=== PATIENT | female | born 1965 | race Caucasian/White ===

== ENCOUNTER 2020-08-15 11:45 | Emergency (ER) | payer OTHER, SELFPAY ==
[2020-08-15 13:00] VITALS: BP 150/73; PULSE 78; RESP 20; TEMP 36; O2SAT 96
[2020-08-15 13:22] LABS: Add Urine Microscopic? YES; Appearance Urine Clear (Clear); Bacteria Urine Trace /hpf; Bilirubin Urine Negative (Negative); Blood Urine 1+ (Negative); Color Urine Amber (Yellow); Glucose Urine UA 2+ mg/dL (Negative); Ketones Urine Negative (Negative); Leukocyte Esterase Ur 2+ LEU/UL (Negative); Mucus Urine Rare /lpf; Nitrate Urine Positive (Negative); Protein Urine 1+ mg/dL (Negative); Specific Grav Ur 1.027 (1.001-1.035); Squamous Epithelial Cell Urine Rare /hpf (Few); WBC Urine 51-75 /hpf
--- NOTE | 2020-08-15 14:16 | ED.FEMALEGU ---
HPI - Female Genitourinary General Chief complaint: Urogenital-Female Stated complaint: urinary symptoms Time Seen by Provider: 08/15/20 13:14 History of Present Illness HPI Narrative: Patient is a 55-year-old female who presents to the ER with concerns for UTI. Began having pelvic pressure and urinary frequency and dysuria. She even had some incontinence. This all started yesterday. Also developed fever yesterday evening and persisted today. Pain is now radiating up into her upper abdomen. No pain in her back. Denies nausea/vomiting/shortness of breath. She has taken some leftover Bactrim without improvement, same with Azo that she purchased [id number]. Related Data Allergies Allergy/AdvReac Type Severity Reaction Status Date / Time No Known Drug Allergies Allergy Unknown Verified 12/21/18 17:10 Review of Systems Constitutional: Constitutional: Reports chills Comments: Fevers Gastrointestinal: Gastrointestinal: Reports abdominal pain, Denies diarrhea, Denies nausea and Denies vomiting Genitourinary: Genitourinary: Reports nocturia, Reports dysuria, Denies flank pain and Reports urinary incontinence [facility] Past Medical History Medical History (Updated 08/15/20 @ 14:19 by Michael Perla MD) COPD (chronic obstructive pulmonary disease) Diabetes Hypertension Surgical History Surgical History (Updated 08/15/20 @ 14:18 by Michael Perla MD) History of cholecystectomy History of hysterectomy History of tonsillectomy Social History Social History (Updated 08/15/20 @ 14:18 by Michael Perla MD) Smoking status: Current every day smoker Gender identity (if verbalized by the patient): Female Exam Narrative: Exam Narrative: GENERAL: Well-appearing, obese, and in no acute distress. HEAD: Normocephalic, atraumatic. CHEST: Clear to auscultation. No respiratory distress. HEART: Regular rate and rhythm. Normal peripheral pulses. ABDOMEN: Soft, nontender, nondistended, no CVA tenderness. NEURO: Alert and oriented x3. PSYCH: Normal mood and affect. Course Course Emergency Course: Discharge home with ciprofloxacin. Vital Signs Vital signs: Vital Signs Temperature 96.8 F L 08/15/20 13:00 Pulse Rate 78 08/15/20 13:00 Respiratory Rate 20 08/15/20 13:00 Blood Pressure 150/73 H 08/15/20 13:00 Pulse Oximetry 96 08/15/20 13:00 Temperature 96.8 F L 08/15/20 13:00 Pulse Rate 78 08/15/20 13:00 Respiratory Rate 20 08/15/20 13:00 Blood Pressure 150/73 H 08/15/20 13:00 Pulse Oximetry 96 08/15/20 13:00 MDM - Female Genitourinary Lab Data Labs: Lab Results 08/15/20 Range/Units 13:04 Urine Color [place] (Yellow) Urine Appearance Clear (Clear) Urine pH 5.0 (5.0-9.0) Ur Specific [place] 1.027 (1.001-1.035) Urine Protein 1+ H (Negative) mg/dL Urine Glucose (UA) 2+ H (Negative) mg/dL Urine Ketones Negative (Negative) mg/dL Ur Blood (Man) 1+ H (Negative) Urine Nitrate Positive H (Negative) Urine Bilirubin Negative (Negative) Urine Urobilinogen 4.0 H (<2.0) mg/dL Leukocyte Esterase Rfl 2+ H (Negative) LOVE/UL Urine RBC 6-10 H (0-2) /hpf Urine WBC 51-75 H /hpf Ur Squamous Epith Cells Rare (Few) /hpf Urine Bacteria Trace /hpf Hyaline Casts 1-2 (None) /lpf Urine Mucus Rare /lpf Discharge Plan Discharge Clinical Impression: Urinary tract infection Patient Disposition: Home, Self-Care Condition: Stable Instructions: Antibiotic Form, Urinary Tract Infection in Women (ED) Additional Instructions: Return to the ER if you cannot keep down food or water, you have worsening pain in your abdomen or back, you lose consciousness, you have additional concerns. Prescriptions: New ciprofloxacin HCl [Cipro] 500 mg tablet 500 mg PO Q12H Qty: 20 RF: 0 Follow-up/Referrals: Roxie,BETH Bowen [Primary Care Provider] - 1 Week
[2020-08-15 14:34] VITALS: BP 148/79; PULSE 82; RESP 16; O2SAT 100
== END 2020-08-15 14:34 | disposition home or self-care (01) ==
PROVIDERS: Emergency Provider Emergency Medicine; PCP Physician Assistant
DX: N39.0 Urinary tract infection, site not specified (principal); J44.9 Chronic obstructive pulmonary disease, unspecified; E11.9 Type 2 diabetes mellitus without complications; I10 Essential (primary) hypertension
CPT/HCPCS: 81001; 87086; 99283

== ENCOUNTER 2020-09-21 10:32 | Emergency (ER) | payer OTHER, SELFPAY ==
--- NOTE | ~2020-09-21 | XR_ITS ---
XR hip RT min 2V 09/21/2020 10:59 INDICATION: Right hip pain after fall downstairs PROCEDURE: 2 views right hip COMPARISON: No prior studies for comparison. FINDINGS: Fracture, dislocation or subluxation is not identified. There is osteoarthritis of the righ t hip. The soft tissues appear within normal limits. No foreign bodies are identified. IMPRESSION: 1: NO ACUTE BONE OR JOINT ABNORMALITY IDENTIFIED. Reviewed, dictated and finalized at location A.
[2020-09-21 10:42] VITALS: BP 157/82; PULSE 85; RESP 20; TEMP 36.9; O2SAT 99
--- NOTE | 2020-09-21 10:53 | ED.LOWEXIN ---
HPI - Extremity Injury (Lower) General Chief Complaint: Extremity Injury, Lower Stated Complaint: Fall,Rt hip pain Time Seen by Provider: 09/21/20 10:48 Source: patient and RN notes reviewed History of Present Illness HPI Narrative: Patient is a 55-year-old female who presents the urgent care with complaints of right hip and right knee pain. Patient states that she fell at 6 AM while at home down a short step. Patient denies of a loss of consciousness or hitting her head. States that she has been using Tylenol and tramadol since the injury. States that she has been having issues with the right leg and does have a follow-up with her PCP on Friday. No other acute complaints. No acute distress noted. Patient aware of the plan of care. Some parts of this dictation were generated by voice recognition software and may contain typographical and/or grammatical inaccuracies. Related Data Home Medications Medication Instructions Recorded Confirmed gabapentin 300 mg PO TID 09/21/20 09/21/20 lisinopril 20 mg PO DAILY 09/21/20 09/21/20 meloxicam 15 mg PO DAILY 09/21/20 09/21/20 metformin 500 mg PO BID 09/21/20 09/21/20 montelukast 10 mg PO DAILY 09/21/20 09/21/20 sitagliptin [Januvia] 100 mg PO DAILY 09/21/20 09/21/20 tizanidine 6 mg PO TID 09/21/20 09/21/20 tramadol 50 mg PO TID 09/21/20 09/21/20 Allergies Allergy/AdvReac Type Severity Reaction Status Date / Time No Known Drug Allergies Allergy Unknown Unknown Verified 09/21/20 10:51 Review of Systems Review of Systems: Narrative: CONSTITUTIONAL: Denies fever, chills, or sweats. EYES: Denies visual changes, redness, or discharge. ENT: Denies rhinorrhea, congestion, sore throat, or otalgia. CARDIOVASCULAR: Denies chest pain, palpitations, or edema. RESPIRATORY: Denies cough or dyspnea. GASTROINTESTINAL: Denies abdominal pain, nausea, vomiting, or diarrhea. GENITOURINARY: Denies dysuria or hematuria. SKIN: Denies rash or itching. MUSCULOSKELETAL: Reports of right hip and right knee pain NEUROLOGIC: Denies headache, numbness, or weakness. All other systems reviewed are negative, except as documented in HPI. [facility] Past Medical History Medical History (Updated 09/21/20 @ 11:11 by CHAI Oates) COPD (chronic obstructive pulmonary disease) Diabetes Hypertension Surgical History Surgical History (Updated 08/15/20 @ 14:18 by Michael Perla MD) History of cholecystectomy History of hysterectomy History of tonsillectomy Social History Social History (Updated 08/15/20 @ 14:18 by Michael Perla MD) Smoking status: Current every day smoker Gender identity (if verbalized by the patient): Female Comments At the time of my signature, I reviewed and agree with the nursing past medical, surgical, social, and family history. There is no relevant family history pertinent to the patient complaint. Exam Narrative: Exam Narrative: GENERAL: This is a well-nourished, well-developed patient, in no apparent distress. HEAD: normocephalic, atraumatic. EYES: PERRL. Sclera clear/white. Vision is grossly intact. EARS: External ears normal NOSE: External nose normal with no obvious nasal discharge, nares without redness, no rhinorrhea. THROAT: Mucous membranes moist NECK: Neck supple CARDIOVASCULAR: Regular rate and rhythm without murmurs, gallops, or rubs. RESPIRATORY: Mild expiratory wheeze to right upper lung field, otherwise clear SKIN: warm, intact with no suspicious lesions or rash, good texture and turgor. NEURO: awake, alert, and oriented to person, place and time. There were no obvious focal neurologic abnormalities. EXTREMITIES: No clubbing, cyanosis, or edema. No joint tenderness, effusion, or edema noted. No calf tenderness. Negative Homans sign bilaterally. Course Vital Signs Vital signs: Vital Signs Temperature 98.4 F 09/21/20 10:42 Pulse Rate 85 09/21/20 10:42 Respiratory Rate 20 09/21/20 10:42 Blood Pressure 157/82 H 09/21/20 10:42
== END 2020-09-21 11:12 | disposition home or self-care (01) ==
PROVIDERS: Emergency Provider Nurse Practitioner Family; PCP Physician Assistant
DX: M25.551 Pain in right hip (principal); J44.9 Chronic obstructive pulmonary disease, unspecified; E11.9 Type 2 diabetes mellitus without complications; I10 Essential (primary) hypertension; F17.200 Nicotine dependence, unspecified, uncomplicated
CPT/HCPCS: 73502; 99213; G0463

== ENCOUNTER 2022-10-17 10:52 | Emergency (ER) | payer BC, SELFPAY ==
--- NOTE | ~2022-10-17 | XR_ITS ---
EXAMINATION: [id number] INDICATION: Left-sided chest pain TECHNIQUE: A frontal view of the chest and 4 views of the left ribs were obtained. COMPARISON: None. FINDINGS: There is mild atelectasis of the lung bases. No pleural effusion or pneumothorax. The cardi omediastinal silhouette is normal. No displaced rib fracture is identified. IMPRESSION: 1. No acute cardiopulmonary abnormality or evidence of displaced rib fracture. Reviewed, dictated and finalized at location L.
[2022-10-17 11:01] VITALS: BP 126/65; PULSE 71; RESP 18; TEMP 37.4; O2SAT 98
--- NOTE | 2022-10-17 11:04 | ED.CHESTPAIN ---
HPI - Chest Pain General Chief Complaint: Fall Stated Complaint: Fall Injury/ Left Side Rib Pain Time Seen by Provider: 10/17/22 11:05 Source: patient Mode of arrival: ambulatory Limitations: no limitations History of Present Illness HPI narrative: Bethany is a 57-year-old female patient presenting to the clinic today with complaints of left-sided rib pain after falling last night. States she was bringing in the trash can in twisted and fell. Denies any neck pain, head injury, or loss of consciousness. She denies any shortness of breath or difficulty breathing at this time. Does have history of COPD. States it hurts to take a deep breath, cough, or sneeze over the left lateral anterior rib just below her left breast. Related Data Home Medications Medication Instructions Recorded Confirmed meloxicam 15 mg tablet 15 mg PO DAILY 09/21/20 10/17/22 metformin 500 mg tablet 500 mg PO BID 09/21/20 10/17/22 montelukast 10 mg tablet 10 mg PO DAILY 09/21/20 10/17/22 sitagliptin phosphate 100 mg 100 mg PO DAILY 09/21/20 10/17/22 tablet (Januvia) tizanidine 4 mg tablet 6 mg PO TID 09/21/20 10/17/22 tramadol 50 mg tablet 100 mg PO QID 09/21/20 10/17/22 alprazolam 0.5 mg tablet See Rx Instructions .Route .COMPLEX 10/17/22 10/17/22 lisinopril 40 mg tablet 40 mg PO DAILY 10/17/22 10/17/22 pregabalin 150 mg capsule See Rx Instructions .Route .COMPLEX 10/17/22 10/17/22 Allergies Allergy/AdvReac Type Severity Reaction Status Date / Time levothyroxine Allergy Severe Joint Pain Verified 10/17/22 10:57 Review of Systems Review of Systems: Pertinent positives per HPI. Patient denies any fever, chills, rash, headache, visual changes, dizziness, cough, runny nose, sore throat, shortness of breath, chest pain, palpitations, nausea, vomiting, diarrhea, constipation, abdominal pain, or any urinary issues. [facility] Past Medical History Medical History Anxiety Arthritis COPD (chronic obstructive pulmonary disease) Diabetes Hypertension Surgical History Surgical History History of cholecystectomy History of hysterectomy History of tonsillectomy Family History Family History Sibling Cancer Heart problem Mother Diabetes mellitus Hypertension Depression Anxiety Father Hypertension Diabetes mellitus Depression Anxiety Heart problem Sibling Hypertension Depression Anxiety Daughter Anxiety Depression Grandparent Cerebrovascular accident Social History Social History Social History: Bethany is very confident in filling out medical forms and has not received assistance in the last 12 months from an organization/program. She has had 3 pregnancies, 1 ended in miscarriage. Date of last menses was 09/15/2013. Performs self breast exams weekly. Had a colonoscopy on 06/16/2019. She drinks 6 cups of coffee/day. Smoking status: Current every day smoker Tobacco type: cigarettes Alcohol intake: current Alcohol use details: Caroline (1 drink: 4-6 times a year). Substance use: never Lack of Transportation: No Lack of Food: Never True Current Housing: I Have Housing Concerned About Future Housing: No Difficulty Paying Gas/Electric Bills: No Difficulty Paying for Meds: No Currently Unemployed: No Education: High School Diploma/GED Difficulty w/ Childcare or Family Care: No Living arrangements: alone Occupation/Education: occupation Additional occupation/education comments: [employer] Gender identity (if verbalized by the patient): Female Sexual Orientation (if Verbalized by the Patient): Straight or Heterosexual Agree to blood products: Yes Comments At the time of my signature, I reviewed and agree with the nursing past me
== END 2022-10-17 11:55 | disposition home or self-care (01) ==
PROVIDERS: Emergency Provider Nurse Practitioner Family; PCP Physician Assistant
DX: S20.212A Contusion of left front wall of thorax, initial encounter (principal); W19.XXXA Unspecified fall, initial encounter; F17.210 Nicotine dependence, cigarettes, uncomplicated; M19.90 Unspecified osteoarthritis, unspecified site; J44.9 Chronic obstructive pulmonary disease, unspecified; E11.9 Type 2 diabetes mellitus without complications; I10 Essential (primary) hypertension; F41.9 Anxiety disorder, unspecified
CPT/HCPCS: 71101; 99213; G0463

== ENCOUNTER 2022-11-29 09:14 | Outpatient (CLI) | payer BC, SELFPAY ==
--- NOTE | 2022-11-29 09:00 | ECG_ITS ---
Measurements Intervals [place] Rate: 64 P: 26 MN: 135 QRS: 65 QRSD: 80 T: 50 QT: 405 QTc: 419 Interpretive Statements DIFFICULT INTERPRETATION BECAUSE OF BASELINE ARTIFACT SINUS RHYTHM LOW QRS VOLTAGE IN PRECORDIAL LEADS [QRS DEFLECTION < 1.0 mV IN CHEST LEADS] NONSPECIFIC T-WAVE ABNORMALITY ABNORMAL ECG NO PREVIOUS ECG AVAILABLE FOR COMPARISON Electronically Signed On 11-29-2022 14:46:54 CDT by Leonard Carreno M.D.
[2022-11-29 10:41] LABS: Anion Gap 6 mmol/L (8-16); Blood Urea Nitrogen 13 mg/dL (7-17); Calcium 9.2 mg/dL (8.4-10.2); Carbon Dioxide 28 mmol/L (22-30); Chloride 105 mmol/L (98-107); Estimated Glomerular Filt Rate > 60; Glucose 99 mg/dL (65-110); Hemoglobin A1C 5.8 % (<5.7); Partial Thromboplastin Time 29.1 SECONDS (22.3-36.8); Potassium 4.2 mmol/L (3.4-5.0); Prothrombin Time 13.6 Seconds (11.1-14.7); Sodium 139 mmol/L (137-145)
[2022-11-29 11:46] LABS: Hematocrit 45.3 % (37.0-47.0); Hemoglobin 14.9 g/dL (12.0-15.0); Mean Corpuscular HGB Conc 32.9 g/dl (32-36); Mean Corpuscular Hemoglobin 30.2 pg (26-34); Mean Corpuscular Volume 91.9 fl (80-100); Mean Platelet Volume 10.3 fl (7.4-10.4); Platelet Count Result 224 k/mm3 (150-375); Red Blood Count 4.93 M/mm3 (4.2-5.4); Red Cell Distribution Width 13.8 % (11.5-14.5); White Blood Count 7.2 K/mm3 (4.5-10.0)
[2022-11-29 11:52] LABS: Appearance Urine Clear (Clear); Bilirubin Urine Negative (Negative); Blood Urine Negative (Negative); Color Urine Yellow (Yellow); Glucose Urine UA Negative (Negative); Ketones Urine Negative (Negative); Leukocyte Esterase Ur Negative LEU/UL (Negative); Nitrate Urine Negative (Negative); Protein Urine Negative (Negative); Specific Grav Ur 1.012 (1.001-1.035); Urobilinogen Urine 0.2 mg/dL (<2.0)
[2022-11-29 11:53] LABS: Add Urine Microscopic? NO
== END 2022-11-29 09:15 | disposition home or self-care (01) ==
LOC: ANHSURGERY 09:20
PROVIDERS: PCP Physician Assistant; Visit Provider Neurological Surgery
DX: M48.062 Spinal stenosis, lumbar region with neurogenic claudication (principal); E11.9 Type 2 diabetes mellitus without complications; I10 Essential (primary) hypertension; Z01.818 Encounter for other preprocedural examination
CPT/HCPCS: 36415; 80048; 81003; 83036; 85027; 85610; 85730; 93005

== ENCOUNTER 2022-12-03 02:00 | Day surgery (SDC) | payer BC, SELFPAY ==
[2022-11-28 15:41] VITALS: BMI 30.7
--- NOTE | 2022-11-28 15:51 | PC.NURSE ---
Report to the Outpatient Waiting Room, entrance under the green pavilion located off [facility], at time 11:30 on date 12/03/22. Planned Procedure Time: 1:30. Time changes happen often and if your time is changed the preop area will call you the afternoon before. - You and your visitor will be asked to self-screen and do not enter if you have any COVID symptoms. - A mask is optional within the hospital at this time. Patients may have clear liquids (water, carbonated beverages, clear teas, apple juice) until 3 hours prior to surgery with a maximum of 20 ounces. - No food from midnight until time of surgery Take the following medications with a SIP of water the morning of surgery: INHALER IF NEEDED, ALPRAZOLAM, PREGABALIN, TRAMADOL DO NOT STOP ANY OF YOUR OTHER PRESCRIPTION MEDICATIONS PRIOR TO SURGERY ?EXCEPT THE FOLLOWING Medications to discontinue per physician: MELOXICAM Date to take last dose: ALREADY STOPPED Please no make-up, nail swedish, hairspray, perfume, deodorant, or body powder the day of surgery. No jewelry (including any body piercings) or valuables the day of surgery, leave them at home. Please take a shower or bath the night before, or the morning of, surgery with an antibacterial soap. Wear comfortable, loose fitting clothing. - Jewelry must be removed prior to entering the operating room. Rings and piercings that are not removed may be cut off. - The hospital will not accept responsibility for valuables. - Please leave all valuables, including medications, at home the day of surgery. If you are going home after surgery, a licensed delivery driver/customer service must drive you home. - NO public transportation without another adult if you receive anesthesia. - We recommend that an adult stay with you for 24 hours following discharge. - We also recommend that you do not drive, make important decision, drink alcoholic beverages, or take any drugs that were not prescribed by your health care provider for at least 24 hours after your discharge time. Follow any additional instructions given to you from your surgeon. If you or anyone in your household have experienced Covid symptoms in the past week, please notify your surgeon or the nurse liaison at the phone number below for possible testing. Telephone instructions given to PT - MANUEL PIEDRA and asked if any additional questions and then verbalized understanding. Patient advised to call surgeon office or pre surgery nurse liaison [phone] if any additional questions.
[2022-12-03] VITALS (9 sets, daily range): BP systolic 89–176; BP diastolic 45–80; PULSE 58–87; RESP 13–20; TEMP 36.3; O2SAT 97–100
--- NOTE | ~2022-12-03 | XR_ITS ---
EXAMINATION: XR fluoroscopy no charge DATE: 12/03/2022 15:30 CDT INDICATION: FORAMINOTOMY AND HEMILAMINECTOMY . TECHNIQUE: 1 fluoroscopic image of the lateral lumbar spine were obtained during foraminotomy and hem ilaminectomy performed by the surgeon. I was not present in the operating room. Fluoroscopy exposure time was 4 seconds. Air Kerma 3.6642 mGy. DAP 0.0726 mGym2. COMPARISON: None FINDINGS: A probe or other surgical instrument projects over the posterior lumbar spine, directed towards the L 3 vertebral body. IMPRESSION: Fluoroscopic documentation of foraminotomy and hemilaminectomy. Please refer to the operative note fo r complete procedural details . Reviewed, dictated and finalized at location K. IMPRESSION: Fluoroscopic documentation of foraminotomy and hemilaminectomy. Please refer to the operative note for complete procedural details .
[2022-12-03] MEDS: LACTATED RINGERS 1,000 ML 30 ML IV CONT (12:30)
[2022-12-03 12:43] LABS: Glucose Point of Care 111 mg/dl (65-105)
--- NOTE | 2022-12-03 13:02 | SUR.PREOP ---
1250-PT AWARE PRIOR SURGEON IN ROOM DELAYS PT SURGEON UNTIL ~1400.
--- NOTE | 2022-12-03 13:17 | WPDANESEPPF ---
Anes - Initial Pre Proc Eval Procedure: Operation Date: 12/03/22 13:30 Proposed Procedures p Right L3-4 Far Lateral Foraminotomy and Hemilaminectomy - Feng Phillip MD Date/Time: 12/03/22 13:17 Surgeon: Feng Phillip MD Pre Op Diagnosis: stenosis Patient Data Age: 57 Gender: F Height: 1.59 m Weight: 76.9 kg Last Vital Signs Temp 36.3 C L 12/03/22 11:57 Pulse 73 12/03/22 11:57 Resp 20 12/03/22 11:57 BP 141/68 H 12/03/22 11:57 Pulse Ox 97 12/03/22 11:57 O2 Del Method Room Air 12/03/22 11:57 Allergies Allergy/AdvReac Type Severity Reaction Status Date / Time levofloxacin [From Levaquin] Allergy leg pain Verified 12/03/22 12:21 Home Medications Medication Instructions Recorded Confirmed Type meloxicam 15 mg tablet 15 mg PO DAILY 09/21/20 12/03/22 History sitagliptin phosphate 100 mg 100 mg PO DAILY 09/21/20 12/03/22 History tablet (Januvia) tizanidine 4 mg tablet 6 mg PO TID 09/21/20 12/03/22 History tramadol 50 mg tablet 100 mg PO QID 09/21/20 12/03/22 History alprazolam 0.5 mg tablet See Rx Instructions .Route .COMPLEX 10/17/22 12/03/22 History lisinopril 40 mg tablet 40 mg PO DAILY 10/17/22 12/03/22 History pregabalin 150 mg capsule See Rx Instructions .Route .COMPLEX 10/17/22 12/03/22 History albuterol sulfate 90 mcg/actuation 1 inh inhalation PRN 11/28/22 12/03/22 History aerosol inhaler loratadine 10 mg tablet (Claritin) 10 mg PO DAILY 11/28/22 12/03/22 History Laboratory Tests 12/03/22 12:38 POC Capillary Glucose 111 H mg/dl (65-105) Patient hx anesthesia problems: none Family hx anesthesia problems: none Results Review: All pre-operative results and documents have been reviewed as part of the pre-operative evaluation. [facility] Past Medical History Medical History Anxiety Arthritis COPD (chronic obstructive pulmonary disease) Diabetes Hypertension Surgical History Surgical History History of cholecystectomy History of hysterectomy History of tonsillectomy Family History Family History Sibling Cancer Heart problem Mother Diabetes mellitus Hypertension Depression Anxiety Father Hypertension Diabetes mellitus Depression Anxiety Heart problem Sibling Hypertension Depression Anxiety Daughter Anxiety Depression Grandparent Cerebrovascular accident Social History Social History Social History: Bethany is very confident in filling out medical forms and has not received assistance in the last 12 months from an organization/program. She has had 3 pregnancies, 1 ended in miscarriage. Date of last menses was 09/15/2013. Performs self breast exams weekly. Had a colonoscopy on 06/16/2019. She drinks 6 cups of coffee/day. Smoking packs per day: 1 Smoking cigarettes per day: 20.0 Years smoked: 40 Smoking pack-years: 40.00 Smoking status: Current every day smoker Tobacco type: cigarettes Additional smoking assessment comments: HAS BEEN CUTTING BACK SINCE MAY 2022 - NOW DOWN TO 7/DAY Alcohol intake: current Alcohol use details: 1/MONTH Substance use: current Substance use type: marijuana Lack of Transportation: No Lack of Food: Never True Current Housing: I Have Housing Concerned About Future Housing: No Difficulty Paying Gas/Electric Bills: No Difficulty Paying for Meds: No Currently Unemployed: No Education: High School Diploma/GED Difficulty w/ Childcare or Family Care: No Living arrangements: alone Occupation/Education: occupation Additional occupation/education comments: [employer] Gender identity (if verbalized by the patient): Female Sexual Orientation (if Verbalized by the Patient): Straight or Heteros
--- NOTE | 2022-12-03 15:05 | SUR.PREOP ---
1355-pt sleeping-family updated, aware OR room being prepared and Dr. Phillip to arrive ~1500 for ~1530 case.
--- NOTE | 2022-12-03 15:15 | PM.IMHP ---
H&P: HPI History of Present Illness Date/Time: 12/03/22 15:15 Chief Complaint: Bethany is a 57-year-old female with a right L3 radiculopathy related to foraminal stenosis at L3-4 on the right presents for far lateral foraminotomy and potential microdiskectomy if necessary. She has not changed appreciably since we last saw her. She does not have specific muscle group weakness or dermatomal numbness. She is not having any bowel or bladder difficulty. Review of Systems Review of Systems: Patient denies shortness of breath, cough, fever, chills, nausea, vomiting, weight loss, weight gain, chest pain, dysuria. She has back and leg pain as above. Review of systems otherwise negative on 12 systems except as noted elsewhere. [facility] Past Medical History Medical History Anxiety Arthritis COPD (chronic obstructive pulmonary disease) Diabetes Hypertension Surgical History Surgical History History of cholecystectomy History of hysterectomy History of tonsillectomy Family History Family History Sibling Cancer Heart problem Mother Diabetes mellitus Hypertension Depression Anxiety Father Hypertension Diabetes mellitus Depression Anxiety Heart problem Sibling Hypertension Depression Anxiety Daughter Anxiety Depression Grandparent Cerebrovascular accident Social History Social History Social History: Bethany is very confident in filling out medical forms and has not received assistance in the last 12 months from an organization/program. She has had 3 pregnancies, 1 ended in miscarriage. Date of last menses was 09/15/2013. Performs self breast exams weekly. Had a colonoscopy on 06/16/2019. She drinks 6 cups of coffee/day. Smoking packs per day: 1 Smoking cigarettes per day: 20.0 Years smoked: 40 Smoking pack-years: 40.00 Smoking status: Current every day smoker Tobacco type: cigarettes Additional smoking assessment comments: HAS BEEN CUTTING BACK SINCE MAY 2022 - NOW DOWN TO 7/DAY Alcohol intake: current Alcohol use details: 1/MONTH Substance use: current Substance use type: marijuana Lack of Transportation: No Lack of Food: Never True Current Housing: I Have Housing Concerned About Future Housing: No Difficulty Paying Gas/Electric Bills: No Difficulty Paying for Meds: No Currently Unemployed: No Education: High School Diploma/GED Difficulty w/ Childcare or Family Care: No Living arrangements: alone Occupation/Education: occupation Additional occupation/education comments: [employer] Gender identity (if verbalized by the patient): Female Sexual Orientation (if Verbalized by the Patient): Straight or Heterosexual Spiritual care concerns: No Agree to blood products: Yes Meds Home Medications and Allergies Home Medications Medication Instructions Recorded Confirmed Type meloxicam 15 mg tablet 15 mg PO DAILY 09/21/20 12/03/22 History sitagliptin phosphate 100 mg 100 mg PO DAILY 09/21/20 12/03/22 History tablet (Januvia) tizanidine 4 mg tablet 6 mg PO TID 09/21/20 12/03/22 History tramadol 50 mg tablet 100 mg PO QID 09/21/20 12/03/22 History alprazolam 0.5 mg tablet See Rx Instructions .Route .COMPLEX 10/17/22 12/03/22 History lisinopril 40 mg tablet 40 mg PO DAILY 10/17/22 12/03/22 History pregabalin 150 mg capsule See Rx Instructions .Route .COMPLEX 10/17/22 12/03/22 History albuterol sulfate 90 mcg/actuation 1 inh inhalation PRN 11/28/22 12/03/22 History aerosol inhaler loratadine 10 mg tablet (Claritin) 10 mg PO DAILY 11/28/22 12/03/22 History Allergies Allergy/AdvReac Type Severity Reaction Status Date / Time levofloxacin [From Levaquin] Allergy leg pain Verified
--- NOTE | 2022-12-03 15:18 | WPDHPUPDATE1 ---
History and Physical Update Update Date/Time: 12/03/22 15:18 History and Physical has been reviewed, including an updated exam of the patient. There are NO changes in the patient's condition. Risks, benefits, and alternatives have been discussed and questions answered. Patient agrees to proceed with procedure.
[2022-12-03] MEDS: ceFAZolin 2 GM/D5W 50 ML 2 GM/50 ML BAG IVPB (15:28)
[2022-12-03] MEDS: LIDO 1%/EPINEPHRINE 1:100,000 50 ML VIAL 10 ML INFILTRATE (16:08)
[2022-12-03 17:02] LABS: Glucose Point of Care 133 mg/dl (65-105)
[2022-12-03] MEDS: fentaNYL CITRATE INJ (*CRX) 100 MCG/2 ML VIAL 25 MCG IV PUSH ×8 (17:04→17:35)
[2022-12-03] MEDS: HYDROmorphone HCL INJ (*CRX) 1 MG/ML SYR 0.25 MG IV PUSH ×4 (17:40→18:00)
[2022-12-03] MEDS: oxyCODONE HCL (*CRX) 5 MG TAB IR PO (18:15)
--- NOTE | 2022-12-03 21:10 | W.PM.PROC2 ---
Procedure Note - Detailed Date of Procedure 12/08/22 Pre-op Diagnosis Right L3-4 foraminal disc herniation and foraminal stenosis Post-op Diagnosis Same Procedure Performed Right L3-4 far lateral foraminotomy and microdiskectomy Surgeon Feng Phillip MD Anesthesia General Description of Procedure the patient was brought to the operating room in the supine position, was sedated, intubated and placed under general anesthesia routine fashion. She was then turned into the prone position on a Wilbert frame. The area of operation on her back was examined, marked for incision, prepped and draped in routine sterile fashion. Incision was marked over the L3 and L4 spinous processes in the midline. This area was injected with 0.5% lidocaine with [id number] epinephrine. Intravenous antibiotics given prior to incision. Incision was made with a 10 blade scalpel down to the lumbodorsal fascia. A subperiosteal dissection of the muscle and soft tissue away from spinous process and lamina at L3-4 on the right was performed with a subperiosteal elevator and Bovie cautery. Verifying x-rays obtained to verify the level of operation. A Midas Sanket drill was used to resect the lateral pars and facet until the soft contents of the foramen were encountered. Under microscopy the yellow ligament was lifted and removed piecemeal using Kerrison punches. The nerve root was identified and reflected superiorly. The ligament was entered using an 11 blade scalpel. An Deepali curette, curved curette and a Morris rongeur were used to push free and removed fragments of herniated disc from beneath the nerve. This was done until a nerve hook could be placed proximally and distally to confirm lack of compression. The wound was then copiously irrigated with bacitracin irrigation all bleeding stopped with bipolar and Bovie cautery and Gelfoam thrombin powder. The wound was then closed in layered fashion with 2-0 Vicryl interrupted sutures in the lumbodorsal fascia and Cecelia's layer. 3-0 Vicryl buried interrupted sutures were placed in the dermis and the skin was closed with a running 4-0 Monocryl subcuticular stitch and dressed with Dermabond. The patient was allowed to wake up in the operating room and was taken to the recovery room in stable condition. There were no immediate complications of this operation. All counts were reported correct in the case. Blood loss was 50 cc. The patient was neurologically at her baseline postoperatively. Estimated Blood Loss 50 IV Fluids 1,000 Complications None Condition Stable Disposition PACU [facility] Billing Surgery - Charge Forward: Surgery Billing
== END 2022-12-03 18:56 | disposition home or self-care (01) ==
PROVIDERS: PCP Physician Assistant; Visit Provider Neurological Surgery
PROC: (CPT 63005; principal; 2022-12-03 13:30)
DX: M51.26 Other intervertebral disc displacement, lumbar region (principal); M48.061 Spinal stenosis, lumbar region without neurogenic claudication; I10 Essential (primary) hypertension; E11.9 Type 2 diabetes mellitus without complications; J44.9 Chronic obstructive pulmonary disease, unspecified; F41.9 Anxiety disorder, unspecified; F17.210 Nicotine dependence, cigarettes, uncomplicated; Z79.84 Long term (current) use of oral hypoglycemic drugs; Z79.51 Long term (current) use of inhaled steroids; E66.9 Obesity, unspecified; Z68.30 Body mass index [BMI] 30.0-30.9, adult
CPT/HCPCS: 63056; 82948; 99199; A9270; J0690; J1100; J1170; J2250; J2405; J2704; J3010; J7120

== ENCOUNTER 2023-09-29 16:59 | Emergency (ER) | payer BC, SELFPAY ==
--- NOTE | ~2023-09-29 | XR_ITS ---
XR hand LT min 3V Ordering provider: Dot Alan APRN History: . pain x 1 week, sat on it, pt reports loud pop . Comparison: None. FINDINGS: BONES: No acute fracture or dislocation. JOINT SPACES: Well maintained. SOFT TISSUES: Unremarkable. IMPRESSION: No acute osseous abnormality left hand. Reviewed, dictated and finalized at location A.
--- NOTE | 2023-09-29 17:10 | ED.UPPEXIN ---
HPI - Extremity Injury (Upper) General Chief Complaint: Extremity Injury, Upper Stated Complaint: Left hand injury Source: patient Mode of arrival: ambulatory Limitations: no limitations History of Present Illness HPI narrative: 58-year-old female presented for complaint of left thumb pain for 1 week. She states injury was when she got into a low vehicle and sat on the hand. Endorses at the time she had redness and swelling which had improved over the past few days, states it worsened today while at work and typing. Endorses slight decrease in range of motion of the thumb. Related Data Home Medications Medication Instructions Recorded Confirmed meloxicam 15 mg tablet 15 mg PO DAILY 09/21/20 12/03/22 sitagliptin phosphate 100 mg 100 mg PO DAILY 09/21/20 12/03/22 tablet (Januvia) tizanidine 4 mg tablet 6 mg PO TID 09/21/20 12/03/22 alprazolam 0.5 mg tablet See Rx Instructions .Route .COMPLEX 10/17/22 12/03/22 lisinopril 40 mg tablet 40 mg PO DAILY 10/17/22 12/03/22 pregabalin 150 mg capsule See Rx Instructions .Route .COMPLEX 10/17/22 12/03/22 albuterol sulfate 90 mcg/actuation 1 inh inhalation PRN 11/28/22 12/03/22 aerosol inhaler Allergies Allergy/AdvReac Type Severity Reaction Status Date / Time levofloxacin [From Levaquin] Allergy leg pain Verified 12/23/22 09:18 Review of Systems Review of Systems: CONSTITUTIONAL: Denies body aches, fever, chills CARDIOVASCULAR: Denies chest pain, palpitations, or edema. RESPIRATORY: Denies cough or dyspnea. SKIN: Denies rash MUSCULOSKELETAL: reports left thumb pain NEUROLOGIC: Denies headache, numbness, tingling, or weakness. All systems reviewed & are unremarkable except as noted in HPI and below PMFSH Past Medical History Medical History Anxiety Arthritis COPD (chronic obstructive pulmonary disease) Diabetes Hypertension Surgical History Surgical History History of cholecystectomy History of hysterectomy History of tonsillectomy Family History Family History Sibling Cancer Heart problem Mother Diabetes mellitus Hypertension Depression Anxiety Father Hypertension Diabetes mellitus Depression Anxiety Heart problem Sibling Hypertension Depression Anxiety Daughter Anxiety Depression Grandparent Cerebrovascular accident Social History Social History Social History: Bethany is very confident in filling out medical forms and has not received assistance in the last 12 months from an organization/program. She has had 3 pregnancies, 1 ended in miscarriage. Date of last menses was 09/15/2013. Performs self breast exams weekly. Had a colonoscopy on 06/16/2019. She drinks 6 cups of coffee/day. Smoking packs per day: 0.5 Smoking cigarettes per day: 10.0 Years smoked: 40 Smoking pack-years: 20.00 Smoking status: Current every day smoker Tobacco type: cigarettes Additional smoking assessment comments: HAS BEEN CUTTING BACK SINCE MAY 2022 - NOW DOWN TO 7/DAY Alcohol intake: current Alcohol use details: 1/MONTH Substance use: current Substance use type: marijuana Lack of Transportation: No Lack of Food: Never True Current Housing: I Have Housing Concerned About Future Housing: No Difficulty Paying Gas/Electric Bills: No Difficulty Paying for Meds: No Currently Unemployed: No Education: High School Diploma/GED Difficulty w/ Childcare or Family Care: No Living arrangements: alone Occupation/Education: occupation Additional occupation/education comments: [employer] Gender identity (if verbalized by the patient): Female Sexual Orientation (if Verbalized by the Patient): Straight or Heterosexual Spiritual care concerns: No Agree to blood products: Yes
[2023-09-29 17:17] VITALS: BP 159/77; PULSE 70; RESP 16; TEMP 36.5; O2SAT 98
== END 2023-09-29 17:53 | disposition home or self-care (01) ==
PROVIDERS: Emergency Provider Nurse Practitioner Family; PCP Physician Assistant
DX: M79.645 Pain in left finger(s) (principal); M19.90 Unspecified osteoarthritis, unspecified site; J44.9 Chronic obstructive pulmonary disease, unspecified; E11.9 Type 2 diabetes mellitus without complications; I10 Essential (primary) hypertension; F41.9 Anxiety disorder, unspecified; F17.210 Nicotine dependence, cigarettes, uncomplicated
CPT/HCPCS: 73130; 99213; G0463

== ENCOUNTER 2024-02-11 09:17 | Outpatient (CLI) | payer BC, SELFPAY ==
--- NOTE | ~2024-02-11 | MR_ITS ---
MRI of the lumbar spine Clinical History: Spinal stenosis Technique: Axial T2-weighted images, and sagittal T1-weighted, T2-weighted, and T2 fat-sat images wer e acquired. Findings: There is no fracture the lumbar spine. There is 6 mm anterolisthesis of L3 over L4. There i s 4 mm anterolisthesis of L4 over L5. There are reactive marrow signal changes about the L3-L4 and L4 -L5 disc spaces in particular due to underlying degenerative disc disease. At L1-L2, there is moderate degenerative disc narrowing. There is mild disc bulge with moderate to se willian facet arthropathy. No central canal stenosis. Left neural foramen preserved. Posterior to the L2 vertebral body, there is a 1.1 x 0.8 x 1.5 cm ovoid median signal intensity structure, which appears to exert mass effect upon the thecal sac, and somewhat enters the right neural foramen. Diagnostic c onsiderations include extruded disc fragment, versus possibility of schwannoma, or less likely, menin gioma. At L2-L3, there is mild disc bulge with mild degenerative disc narrowing. There is moderate to advanc ed facet arthropathy. No central canal stenosis. There is mild right neural foraminal narrowing. Left neural foramen preserved. At L3-L4, there is severe degenerative disc narrowing. There is diffuse disc bulge with severe facet arthropathy. There is severe spinal canal stenosis/thecal sac compression. There is severe right neur al foraminal compromise. There is mild left neural foraminal compromise. At L4-L5, there is diffuse disc bulge with severe facet arthropathy. There is moderate central canal stenosis. There is severe left neural foraminal compromise, and moderate to severe right neural yumiko inal compromise. At L5-S1, there is moderate degenerative disc narrowing. There is diffuse disc bulge with severe face t arthropathy. No mark central canal stenosis. There is severe left neural foraminal narrowing. Righ t neural foramen preserved. Impression: 1.1 x 0.8 x 1.5 cm ovoid masslike lesion posterior to the L2 vertebral body, and somewhat entering th e right neural foramen at this level. Diagnostic considerations include extruded disc fragment versus schwannoma or possibly hemangioma. T1 fat-sat pre and postcontrast imaging recommended to assess for enhancement of the lesion, which could help distinguish between these possibilities. Advanced degenerative spondylosis in the lumbar spine otherwise, as detailed above. 6 mm anterolisthesis of L3 over L4. 4 mm anterolisthesis of L4 over L5. Reviewed, dictated and finalized at location M. ING SPECIALIST Impression: 1.1 x 0.8 x 1.5 cm ovoid masslike lesion posterior to the L2 vertebral body, an d somewhat entering the right neural foramen at this level. Diagnostic consider ations include extruded disc fragment versus schwannoma or possibly hemangioma. T1 fat-sat pre and postcontrast imaging recommended to assess for enhancement of the lesion, which could help distinguish between these possibilities. Advanced degenerative spondylosis in the lumbar spine otherwise, as detailed ab ove. 6 mm anterolisthesis of L3 over L4. 4 mm anterolisthesis of L4 over L5.
== END 2024-02-11 09:18 | disposition home or self-care (01) ==
LOC: MICIMG 09:18
PROVIDERS: PCP Neurological Surgery; Visit Provider Physician Assistant
DX: M48.062 Spinal stenosis, lumbar region with neurogenic claudication (principal); M47.896 Other spondylosis, lumbar region
CPT/HCPCS: 72148

== ENCOUNTER 2024-05-07 12:05 | Outpatient (CLI) | payer BC, SELFPAY ==
--- OUTSIDE RECORDS SUMMARY | 2024-05-07 12:11 | XMS_ITS | Continuity of Care Document ---
Author Organization [facility] Address [address] [place] [address] Phone Care Team Providers Care Typewriter Assembly And Parts Inspector Name Role Phone Hector Bowles MD Unavailable Unavailable Procedures Procedure Date Work/medical disability examination [facility]ANNON Work/medical disability examination [facility] Advance Directives Directive Yes / No Effective Date File Name No Information Encounters Encounter Description Practice Location Reason(s) For Visit Diagnoses Date Provider Providers Copied on Encounter Work/medical disability examination [facility], [address], [place], [place], [id number], [place] tel:[phone] [facility] No Information 9 Jelena Young. [address], [place], [place], [id number] , [place]. tel: [phone] Family History Family Member Type Diagnosis Age At Onset No Information Payers Payer name Insurance type Covered libertarian ID Authoriza tion(s) No Information Social History Type Description Quantity Date Captured Comments Sex Female Smoking Status No Information Chief Complaint And Reason For Visit No Information Reason For Referral Reason For Referral No Information History Of Present Illness Encounter Date Complaint History Of Prese nt Illness No Information Functional Status Date Functional Assessmen t No Information Instructions Date Instruction Additional Infor mation No Information Assessments Type Assessment Date No Information Patient Care Teams Name Effective Dates (start - stop) Status Members No Information
--- OUTSIDE RECORDS SUMMARY | 2024-05-07 12:12 | XMS_ITS | Clinical Summary ---
Author Organization [facility] Address [address] [place] [address] Phone Care Team Providers Care Precision Assembler Name Role Phone Kevin Faustin Primary Care Provider [phone] Allergies No known active allergies Medications HYDROcodone-matteo taminophen (NORCO) 5-325 MG Tablet Take 1 Tab by mouth every 6 hours as needed for Moderate or more severe pain. 10 Tab 09/21/2018 Active methylPREDNISol one (MEDROL DOSPACK) 4 MG Tablet Therapy Pack See product package insert for dosing schedule 21 Tab 09/21/2018 Active ibuprofen (MOTRIN) 600 MG Tablet Take 1 Tab by mouth every 8 hours. 30 Tab 09/21/2018 Active Social History Tobacco Use Types Packs/Day Years Used Date Smoking Tobacco: Every Day Cigarettes Smokeless Tobacco: Never Alcohol Use Standard Drinks/Week Comments Not Currently 0 (1 standard drink = 0.6 oz pur e alcohol) Rarely Comments No Sex and Gender Information Value Date Recorded Sex Assigned at Not on file Legal Sex Female 11:35 PM CDT Gender Identity Not on file Sexual Orientation Not on file Last Filed Vital Signs Vital Sign Reading Time Taken Comments Blood Pressure 130/76 06/28/2020 6:45 PM CDT Pulse 82 06/28/2020 6:30 PM CDT Temperature 37.1 ??C (98.7 ??F) 06/28/2020 5:28 PM CD T Respiratory Rate 23 06/28/2020 5:28 PM CDT Oxygen Saturation 98% 06/28/2020 6:43 PM CDT Inhaled Oxygen Concentration - - Weight 100.2 kg (221 lb) 06/28/2020 5:28 PM CDT Height 157.5 cm (5' 2 ) 06/28/2020 5:28 PM CDT Body Mass Index 40.42 06/28/2020 5:28 PM CDT Plan of Treatment Health Maintenance Due Date Last Done Comments Hepatitis C Virus (HCV) Screening 1966 TdaP Immunization 1966 Hepatitis B Immunization (1 of 3 - 19+ 3-dose series) 1985 Pap Smear 1987 Cervical Cancer Screening (CCS) 1996 HPV/Cotest 1996 Colonoscopy 2011 Colorectal Cancer Screening 2011 Cologuard 2016 Immunochemical Fecal Occult Blood 2016 Mammogram 2016 Pneumococcal Immunization (5 0+ years) (1 of 1 - PCV) 2016 Zoster Immunization (1 of 2) 2016 Influenza Immunization (#1) 2023 01/20/2013 SARS-COV-2 Immunization ( season) 2023 02/15/2021, 07/26/2020, 06/07/2020 Respiratory Syncytial Virus (RSV) Immunization (Adult) (1 - 1-dose 75+ series) 2041 Meningococcal Immunization (ACWY) Aged Out No longer eligible b ased on patient's age to complete this topic Pneumococcal Immunization Combined Aged Out No longer eligible b ased on patient's age to complete this topic Rotavirus Immunization Aged Out No lo nger eligible based on patient's age to complete this topic Insurance CIG Care Teams Precision Assembler Relationship Specialty Start Date End Date Kevin Faustin, [facility] [address] [place] [address] PCP - General Physician Bender Hand 09/21/18
--- OUTSIDE RECORDS SUMMARY | 2024-05-07 12:12 | XMS_ITS | Clinical Summary ---
Author Organization [facility] Address [address] [place] [address] Care Team Providers Care Manufacturing Support Engineer Name Role Phone Kevin Faustin Primary Care Provider [phone] Rafat Riley MD Unavailable [phone] Allergies Active Allergy Reactions Criticality Noted Date Comments Levofloxacin Other (See comments) Low 09/30/2020 Leg pain Medications meloxicam (MOBIC) 15 mg tablet Take 1 tablet (15 mg total) by mouth daily Active ALPRAZolam (XANAX) 0.5 mg tablet Take 1 tablet (0.5 mg total) by mouth nightly as needed for anxiety. 15 tablet 02/04/20 18 Active traMADoL (ULTRAM) 50 mg tablet Take 1 tablet (50 mg total) by mouth every 4 (four) hours as needed for pain 30 tablet 09/16/19 21 Active lidocaine (LIDODERM) 5 % APPLY 1 PATCH BY TOPICAL ROUTE ONCE DAILY (MAY WEAR UP TO 12HOURS.) 10/06/19 21 Active pregabalin (LYRICA) 75 mg capsule TAKE 1 CAPSULE BY MOUTH TWO TIMES A DAY 09/27/19 21 Active Januvia 100 mg tablet TAKE 1 TABLET EVERY DAY BY ORAL ROUTE FOR 90 DAYS. 10/01/19 21 Active magnesium citrate solution Take 296 mL by mouth once for 1 dose 296 mL 02/22/20 22 Active polyethylene glycol (MIRALAX) 17 gram packetIndications: constipation Take 1 packet (17 g total) by mouth daily for 14 days 14 packet 02/22/20 22 Active lisinopriL (PRINIVIL,ZESTRIL) 20 mg tablet Take 0.5 tablets (10 mg total) by mouth daily 15 tablet 08/23/19 23 Active naproxen (NAPROSYN) 500 mg tablet Take 1 tablet (500 mg total) by mouth 2 (two) times a day as needed for pain 30 tablet 11/11/19 23 Active Additional Information Patient not taking.Reported on 03/08/2024 ondansetron ODT (ZOFRAN-ODT) 8 mg disintegrating tablet Take 1 tablet (8 mg total) by mouth every 8 (eight) hours as needed for nausea or vomiting 30 tablet 09/09/19 24 Active tiZANidine (ZANAFLEX) 4 mg tablet 1 tablet (4 mg total) 02/16/20 24 Active dicyclomine (BENTYL) 20 mg tablet 1 tablet (20 mg total) Active busPIRone (BUSPAR) 10 mg tablet Take 1 tablet (10 mg total) by mouth Active escitalopram (LEXAPRO) 10 mg tablet Take 1 tablet every day by oral route for 90 days. Active pregabalin (LYRICA) 150 mg capsule 1 capsule (150 mg total) 01/15/20 24 Active Active Problems Problem Noted Date Diagnosed Date Colitis 08/21/2022 DDD (degenerative disc disease), lumbar 05/16/19 23 Lumbar facet arthropathy 05/16/2022 Diabetes mellitus 06/30/2018 Encounters Date Type Department Care Team Description 03/09/2024 Telephone [facility] Scheduling [address] [place] [address] Sandra Correia 03/09/2024 Orders Only [facility] [address] Medical Office [address] [place] [address] Rafat Riley MD Other chronic pain (Primary Dx); Low back pain, non-specific; Other osteoporosis without current pathological fracture; Neck pain; Balance problem; Smoking history 03/09/2024 Telephone [facility] with [facility] [address] Medical Office [address] [place] [address] Samira Arreola MA 03/08/2024 9:00 AM [facility] Office Visit [facility] [address] Medical Office [address] [place] [address] Rafat Riley MD Scoliosis of thoracolumbar spine, unspecified scoliosis type (Primary Dx); Smoking greater than 25 pack years 03/08/2024 8:36 AM [facility] - 03/08/2024 11:59 PM [facility] Hospital Encounter [facility] [address] [place] [id number] Low back pain, non-specific Discharge Disposition: Discharge to home or self care 03/08/2024 8:36 AM [facility] - 03/08/2024 11:59 PM [facility] Hospital Encounter [facility] [address] [place] [address] Low back pain, non-specific Discharge Disposition: Discharge to home or self care 02/23/2024 Telephone [facility] with [facility] [address] [place] [address] Way Medical Office Building [address] [facility] [place] [address] Samira Arreola MA 02/20/2024 5:10 PM [facility] - 02/20/2024 11:59 PM [facility] Hospital Encounter [facility] [address] [place] [address] Discharge Disposition: Discharge to home or self care 02/19/2024 Telephone [facility] Scheduling [address] [place] [address] Sandra Correia 02/05/2024 9:21 AM CDT - 02/05/2024 12:43 PM CDT Emergency [facility] Emergency Department [address] [place] [address] Devang Lucero MD Acute right-sided low back pain without sciatica (Primary Dx) Discharge Disposition: Discharge to home or self care from Last 3 Months Immunizations Name Administration Dates Next Due Influenza, Trivalent, IM (MDV) 01/06/2012 Surgical History Surgery Date Site/Laterality Comments SECTION 04/07/1990 - 04/06/1991 section HYSTERECTOMY 04/07/2003 - 04/06/2004 Hysterectomy SECTION 04/07/1984 - 04/06/1985 section CHOLECYSTECTOMY Medical History Medical History Date Comments Hypertension Hypertension Anxiety Hypertension Diabetes (HCC) COPD (chronic obstructive pulmonary disease) (HC C) Type 2 diabetes mellitus (HCC) Family History Medical History Relation Name Comments Diabetes Father Heart attack Father heart attack; C ause of : heart attack Hypertension Father Hypertension; Diabetes Mother Diabetes mellit us; Hypertension Mother Hypertension; Other Mother Unknown; Cause of : Unknown Diabetes Sister Hypertension Sister Relation Name Status Comments Father (Age 49) Mother (Age 71) Sister Social History Tobacco Use Types Packs/Day Years Used Date Smoking Tobacco: Every Day Cigarettes 0.8 40 Smokeless Tobacco: Never Tobacco Cessation:Ready to Q uit: No; Counseling Given: No Alcohol Use Standard Drinks/Week Comments Yes 0 (1 standard drink = 0.6 oz pur e alcohol) rare Humiliation, Afraid, Rape, and Kick questionnair e Answer Date Recorded Within the last year, have y ou been afraid of your partner or ex-partner? No 08/22/2022 Within the last year, have y ou been humiliated or emotionally abused in other ways by your partner or ex-partner? No Within the last year, have y ou been kicked, hit, slapped, or otherwise physically hurt by your partner or ex-partner? No 08/22/2022 Within the last year, have y ou been raped or forced to have any kind of sexual activity by your partner or ex-partner? No 08/22/2022 Social Connection and Isolat ion Panel [NHANES] Answer Date Recorded In a typical week, how many times do you talk on the phone with family, friends, or neighbors? More than three times a week 08/22/2022 How often do you get togethe r with friends or relatives? More than three times a week 08/22/2022 How often do you attend chur or pentecostalism services? Never 08/22/2022 Do you belong to any clubs o r organizations such as confucianism groups, unions, fraternal or athletic groups, or school groups? No 08/22/2022 How often do you attend meet ings of the clubs or organizations you belong to? Never 08/22/2022 Marital Status Not on file 08/22/2022 AUDIT-C Answer Date Recorded Q1: How often do you have a drink containing alc ohol? Monthly or less 03/08/2024 Q2: How many drinks containi ng alcohol do you have on a typical day when you are drinking? 3 or 4 03/08/2024 Q3: How often do you have si x or more drinks on one occasion? Never 03/08/2024 Overall Financial Resource Strain (CARDIA) Answe r Date Recorded How hard is it for you to pa y for the very basics like food, housing, medical care, and heating? Not hard at all 08/22/2022 PHQ-2 Answer Date Recorded PHQ-2 Total Score (If total score is 3 or more points, staff should administer the PHQ-9) 0 08/22/2022 [facility] - Occupational Stress Questionnaire Answer Date Recorded Do you feel stress - tense, restless, nervous, or anxious, or unable to sleep at night because your mind is troubled all the time - these days? Rather much 08/22/2022 Exercise Vital Sign Answer Date Recorde d On average, how many days pe r week do you engage in moderate to strenuous exercise (like a brisk walk)? 5 days 08/22/2022 On average, how many minutes do you engage in exercise at this level? 30 min 08/22/2022 Hunger Vital Sign Answer Date Recorded Within the past 12 months, y ou worried that your food would run out before you got the money to buy more. Never true 08/23/19 23 Within the past 12 months, t he food you bought just didn't last and you didn't have money to get more. Never true 08/22/2022 PRAPARE - Transportation Answer Date Re corded In the past 12 months, has l ack of transportation kept you from medical appointments or from getting medications? No 08/05 In the past 12 months, has l ack of transportation kept you from meetings, work, or from getting things needed for daily living? No 08/22/2022 Housing Stability Vital Sign Answer Ed e Recorded In the last 12 months, was t here a time when you were not able to pay the mortgage or rent on time? No 08/22/2022 In the last 12 months, how many places have you lived? 1 08/22/2022 In the last 12 months, was t here a time when you did not have a steady place to sleep or slept in a skilled nursing (including now)? No 08/22/2022 Personal Safety Answer Date Recorded Have you ever been in or are you currently in a harmful physical or emotional relationship or is someone making you feel afraid or unsafe? Denies 02/05/2024 Comments No Sex and Gender Information Value Date Recorded Sex Assigned at Not on file Legal Sex Female 10:39 AM [facility] Gender Identity Not on file Sexual Orientation Not on file Obstetrics History Last Filed Vital Signs Vital Sign Reading Time Taken Comments Blood Pressure 158/54 03/08/2024 9:43 AM [facility] Pulse 60 03/08/2024 9:43 AM [facility] Temperature 36.6 ??C (97.8 ??F) 02/05/2024 9:19 AM CD T Respiratory Rate 18 02/05/2024 9:19 AM CDT Oxygen Saturation 99% 03/08/2024 9:43 AM [facility] Inhaled Oxygen Concentration - - Weight 81.8 kg (180 lb 6.4 oz) 03/08/2024 9:43 A M [facility] Height 154.9 cm (5' 1 ) 03/08/2024 9:43 AM [facility] Body Mass Index 34.09 03/08/2024 9:43 AM [facility] Plan of Treatment Health Maintenance Due Date Last Done Comments Albumin Creatinine Ratio, Urine 1966 Breast Cancer Screening-Mammogram 1966 Hepatitis C Screening 1966 Dilated Eye Exam 1966 Foot Exam 1966 Pneumococcal vaccine <65 (1 of 2 - PCV) 1972 DTaP/Tdap/Td Vaccine (1 - Tdap) 1977 Hepatitis B Screening 1984 Regular Well Visit/Exam 18-64 1984 Lung Cancer Screening 2016 Zoster Vaccine (1 of 2) 2016 Lipid Panel 01/20/2021 01/21/2020, 07/03/2017 Hemoglobin A1C 03/17/2021 09/15/2020, 06/06, 09/12/2017 Colon Cancer Screening-Colonoscopy 06/15/2022 06/15/2012 Depression Screening 08/22/2023 08/21/2022, 08/22/19 23 Covid-19 Vaccine (2023-2 5 season) 2023 02/15/2021, 07/26/2020, 06/07/2020 Influenza Vaccine (#1) 2023 , 01/30/2021, 01/20/2013, Additional history exists eGFR 09/08/2024 09/09/2023, 08/09/2022, 08/22/2022, Additional history exists Colon Cancer Screening-CT Colonography Discontinued 06/15/2012 Colon Cancer Screening-DNA Stool Discontinued 06/16/19 13 Colon Cancer Screening-FIT Discontinued 06/15/2012 Colon Cancer Screening-Sigmoidoscopy Discontinued 06/15/2012 Procedures Procedure Name Priority Date/Time Associated Diagnosis Comments XR SCOLIOSIS AP LAT Schedule Routine, Read Routine (OP Routine) 03/08/2024 9:02 AM [facility] Low back pain, non-specific XR LUMBAR SPINE AP LAT FLEX EX Schedule Routine, Read Routine (OP Routine) 03/08/2024 9:01 AM [facility] Low back pain, non-specific NEURO MR OUTSIDE REFERENCE Routine 02/20/2024 5:10 PM [facility] XR HIP RIGHT 2 OR 3 VIEWS ED 02/05/2024 9:54 AM CDT XR SPINE LUMBAR 2 OR 3 VIEWS ED 02/05/2024 9:54 AM CDT EGFR STAT 09/09/2023 9:13 AM CDT HEMOGLOBIN A1C Add-On 09/15/2020 10:16 AM CDT LIPID PANEL Routine 01/21/2020 10:49 AM CDT COLONOSCOPY 06/15/2012 12:00 AM CDT from Last 3 Months or Most Recently Relevant to Health Maintenance Results * XR Scoliosis Ap and Lateral (03/08/2024 9:02 AM [facility]) Anatomical Region Laterality Modality Spine N/A Computed Radiogr aphy 03/08/2024 10:5 2 AM [facility] Impressions 03/08/2024 10:52 AM [facility] An outside lumbar spine MRI dated 02/11/2024 is available for comparison. Scoliosis radiographs: There is moderate S-shaped scoliosis of the thoracolumbar spine, with approximately 37 degrees of levocurvature centered of the lumbar spine and 14 degrees of compensatory dextrocurvature in the midthoracic region. ??No significant coronal focal imbalance or pelvic tilt. ??On the lateral view, there is moderately severe forward sagittal truncal imbalance. Lumbar spine: There is grade I anterolisthesis of L3 on L4 and L4 on L5; no abnormal translatory motion during back bending maneuvers. Severe degenerative disc disease at L3-L4 with underlying endplate sclerosis. ??There is also moderate to severe multilevel degenerative disc disease throughout the lower thoracic region and at the L5-S1 level. ??Severe lower lumbar facet osteoarthritis. ??Atherosclerotic plaque is seen within the abdominal aorta. Electronically signed by: Mateusz Mondragon M.D. Narrative 03/08/2024 10:52 AM [facility] EXAMINATION: XR SPINE LUMBAR AP LAT FLEX EXT MIN 4 VIEWS, XR SCOLIOSIS AP AND LATERAL Procedure Note Mateusz Mondragon MD - 03/08/2024 EXAMINATION: XR SPINE LUMBAR AP LAT FLEX EXT MIN 4 VIEWS, XR SCOLIOSIS AP AND LATERAL IMPRESSION: An outside lumbar spine MRI dated 02/11/2024 is available for comparison. Scoliosis radiographs: There is moderate S-shaped scoliosis of the thoracolumbar spine, with approximately 37 degrees of levocurvature centered of the lumbar spine and 14 degrees of compensatory dextrocurvature in the midthoracic region. No significant coronal focal imbalance or pelvic tilt. On the lateral view, there is moderately severe forward sagittal truncal imbalance. Lumbar spine: There is grade I anterolisthesis of L3 on L4 and L4 on L5; no abnormal translatory motion during back bending maneuvers. Severe degenerative disc disease at L3-L4 with underlying endplate sclerosis. There is also moderate to severe multilevel degenerative disc disease throughout the lower thoracic region and at the L5-S1 level. Severe lower lumbar facet osteoarthritis. Atherosclerotic plaque is seen within the abdominal aorta. Electronically signed by: Mateusz Mondragon M.D. Rafat Riley MD IMG XR PROCEDURES Final Re sult * XR Spine Lumbar Ap Lat Flex Ext min 4 Views (03/08/2024 9:01 AM [facility]) Anatomical Region Laterality Modality L-spine N/A Computed Radiogr aphy 03/08/2024 10:5 2 AM [facility] Impressions 03/08/2024 10:52 AM [facility] An outside lumbar spine MRI dated 02/11/2024 is available for comparison. Scoliosis radiographs: There is moderate S-shaped scoliosis of the thoracolumbar spine, with approximately 37 degrees of levocurvature centered of the lumbar spine and 14 degrees of compensatory dextrocurvature in the midthoracic region. ??No significant coronal focal imbalance or pelvic tilt. ??On the lateral view, there is moderately severe forward sagittal truncal imbalance. Lumbar spine: There is grade I anterolisthesis of L3 on L4 and L4 on L5; no abnormal translatory motion during back bending maneuvers. Severe degenerative disc disease at L3-L4 with underlying endplate sclerosis. ??There is also moderate to severe multilevel degenerative disc disease throughout the lower thoracic region and at the L5-S1 level. ??Severe lower lumbar facet osteoarthritis. ??Atherosclerotic plaque is seen within the abdominal aorta. Electronically signed by: Mateusz Mondragon M.D. Narrative 03/08/2024 10:52 AM [facility] EXAMINATION: XR SPINE LUMBAR AP LAT FLEX EXT MIN 4 VIEWS, XR SCOLIOSIS AP AND LATERAL Procedure Note Mateusz Mondragon MD - 03/08/2024 EXAMINATION: XR SPINE LUMBAR AP LAT FLEX EXT MIN 4 VIEWS, XR SCOLIOSIS AP AND LATERAL IMPRESSION: An outside lumbar spine MRI dated 02/11/2024 is available for comparison. Scoliosis radiographs: There is moderate S-shaped scoliosis of the thoracolumbar spine, with approximately 37 degrees of levocurvature centered of the lumbar spine and 14 degrees of compensatory dextrocurvature in the midthoracic region. No significant coronal focal imbalance or pelvic tilt. On the lateral view, there is moderately severe forward sagittal truncal imbalance. Lumbar spine: There is grade I anterolisthesis of L3 on L4 and L4 on L5; no abnormal translatory motion during back bending maneuvers. Severe degenerative disc disease at L3-L4 with underlying endplate sclerosis. There is also moderate to severe multilevel degenerative disc disease throughout the lower thoracic region and at the L5-S1 level. Severe lower lumbar facet osteoarthritis. Atherosclerotic plaque is seen within the abdominal aorta. Electronically signed by: Mateusz Mondragon M.D. Rafat Riley MD IMG XR PROCEDURES Final Re sult * Neuro MR Outside Reference (02/20/2024 5:10 PM [facility]) Impressions [facility] - 02/20/2024 5:10 PM [facility] These images are for Reference purposes only and have not been reviewed by [facility]. ??There will be no report generated by a [facility] Radiologist. Narrative [facility] - 02/20/2024 5:10 PM [facility] EXAMINATION: ??Images For Reference Purposes Only Bennett Bowden MD [facility] MRI PROCEDURES Final R esult [facility] * XR Hip Right 2 or 3 Views (02/05/2024 9:54 AM CDT) Anatomical Region Laterality Modality Lower Extremities, Hip, Pelvis Right C omputed Radiography 02/05/2024 10:2 0 AM CDT Narrative 02/05/2024 10:23 AM CDT EXAM DESCRIPTION: ?? XR SPINE LUMBAR 2 OR 3 VIEWS; XR HIP RIGHT 2 OR 3 VIEWS REASON FOR STUDY: pain, c/f fx ?? Pt to triage for R hip and back pain. Pt states she had surgery 1 year ago and her pain is coming back like before her surgery. Pt states she had a Toradol shot Friday and it did not help the pain at all. ? TECHNIQUE: XR SPINE LUMBAR 2 OR 3 VIEWS; XR HIP RIGHT 2 OR 3 VIEWS COMPARISON: Lumbar spine radiographs 09/10/2022. ??CT abdomen and pelvis 09/09/2023. FINDINGS: Lumbar spine: There is a levocurvature of the lumbar spine. ??Vertebral body heights and the alignment are normal. ??There is moderate to severe degenerative change with some areas of vacuum disc phenomena. ??Mild sclerosis along the sacroiliac joints. ??There is the capsular density over the right upper quadrant, this may be a foreign body or potentially external to the patient 3.2 x 0.6 cm. ??No lumbar spine fracture is identified. ??There is grade 1 anterolisthesis L3 on L4 and L4 on L5. ??Vacuum disc phenomena at multiple levels. ??There appears to be mild anterior height loss at T11 slightly progressive from the prior study but favored to be degenerative. ??Facet arthropathy is noted. ??Vascular calcifications noted of the abdominal aorta. Right hip: No acute fracture or dislocation. ??The obturator ring is intact. ?? The sacroiliac joint and pubic symphysis maintained. ??No erosion or aggressive osseous lesion. IMPRESSION: No evidence of an acute osseous abnormality of the lumbar spine or right hip. Moderate to severe lumbar spondylosis. Mild anterior height loss at T11 slightly progressive from the prior study but favored to be degenerative. If symptoms persist despite conservative management, could consider follow-up CT imaging as clinically indicated. Grade 1 anterolisthesis L3 on L4 and L4 on L5. Capsular density over the right upper quadrant may be a foreign body or potentially external to the patient. ?? THIS IS AN ELECTRONICALLY VERIFIED FINAL REPORT 02/05/2024 10:23 AM - Electronically signed by ??Robby Duvall M.D. CH: D: ??02/05/2024 10:23 AM T: ??02/05/2024 10:23 AM Report ID: [id number] Reading Location: ??[id number] Procedure Note Robby Duavll Jr., MD - 02/05/2024 EXAM DESCRIPTION: XR SPINE LUMBAR 2 OR 3 VIEWS; XR HIP RIGHT 2 OR 3VIEWS REASON FOR STUDY: pain, c/f fx Pt to triage for R hip and back pain. Pt states she had surgery 1 year agoand her pain is coming back like before her surgery. Pt states she had aToradol shot Friday and it did not help the pain at all. TECHNIQUE: XR SPINE LUMBAR 2 OR 3 VIEWS; XR HIP RIGHT 2 OR 3 VIEWS COMPARISON: Lumbar spine radiographs 09/10/2022. CT abdomen and pelvis 09/09/2023. FINDINGS: Lumbar spine: There is a levocurvature of the lumbar spine. Vertebralbody heights and the alignment are normal. There is moderate to severe degenerative change with some areas of vacuum disc phenomena. Mildsclerosis along the sacroiliac joints. There is the capsular density over the right upper quadrant, this may be a foreign body or potentially external to the patient 3.2 x 0.6 cm. No lumbar spine fracture is identified. There isgrade 1 anterolisthesis L3 on L4 and L4 on L5. Vacuum disc phenomena atmultiple levels. There appears to be mild anterior height loss at T11 slightly progressive from the prior study but favored to be degenerative. Facet arthropathy is noted. Vascular calcifications noted of the abdominalaorta. Right hip: No acute fracture or dislocation. The obturator ring isintact. The sacroiliac joint and pubic symphysis maintained. No erosion oraggressive osseous lesion. IMPRESSION: No evidence of an acute osseous abnormality of the lumbar spine or righthip. Moderate to severe lumbar spondylosis. Mild anterior height loss at T11 slightly progressive from the priorstudy but favored to be degenerative. If symptoms persist despite conservative management, could considerfollow-up CT imaging as clinically indicated. Grade 1 anterolisthesis L3 on L4 and L4 on L5. Capsular density over the right upper quadrant may be a foreign body or potentially external to the patient. THIS IS AN ELECTRONICALLY VERIFIED FINAL REPORT 02/05/2024 10:23 AM - Electronically signed by Robby Duvall M.D. CH: IVANA Report ID: [id number] Reading Location: [id number] Devang Lucero MD IM XR PROCEDURES F inal Result * XR Spine Lumbar 2 or 3 Views (02/05/2024 9:54 AM CDT) Anatomical Region Laterality Modality Spine N/A Computed Radiogr aphy 02/05/2024 10:2 0 AM CDT Narrative 02/05/2024 10:23 AM CDT EXAM DESCRIPTION: ?? XR SPINE LUMBAR 2 OR 3 VIEWS; XR HIP RIGHT 2 OR 3 VIEWS REASON FOR STUDY: pain, c/f fx ?? Pt to triage for R hip and back pain. Pt states she had surgery 1 year ago and her pain is coming back like before her surgery. Pt states she had a Toradol shot Friday and it did not help the pain at all. ? TECHNIQUE: XR SPINE LUMBAR 2 OR 3 VIEWS; XR HIP RIGHT 2 OR 3 VIEWS COMPARISON: Lumbar spine radiographs 09/10/2022. ??CT abdomen and pelvis 09/09/2023. FINDINGS: Lumbar spine: There is a levocurvature of the lumbar spine. ??Vertebral body heights and the alignment are normal. ??There is moderate to severe degenerative change with some areas of vacuum disc phenomena. ??Mild sclerosis along the sacroiliac joints. ??There is the capsular density over the right upper quadrant, this may be a foreign body or potentially external to the patient 3.2 x 0.6 cm. ??No lumbar spine fracture is identified. ??There is grade 1 anterolisthesis L3 on L4 and L4 on L5. ??Vacuum disc phenomena at multiple levels. ??There appears to be mild anterior height loss at T11 slightly progressive from the prior study but favored to be degenerative. ??Facet arthropathy is noted. ??Vascular calcifications noted of the abdominal aorta. Right hip: No acute fracture or dislocation. ??The obturator ring is intact. ?? The sacroiliac joint and pubic symphysis maintained. ??No erosion or aggressive osseous lesion. IMPRESSION: No evidence of an acute osseous abnormality of the lumbar spine or right hip. Moderate to severe lumbar spondylosis. Mild anterior height loss at T11 slightly progressive from the prior study but favored to be degenerative. If symptoms persist despite conservative management, could consider follow-up CT imaging as clinically indicated. Grade 1 anterolisthesis L3 on L4 and L4 on L5. Capsular density over the right upper quadrant may be a foreign body or potentially external to the patient. ?? THIS IS AN ELECTRONICALLY VERIFIED FINAL REPORT 02/05/2024 10:23 AM - Electronically signed by ??Robby Duvall M.D. CH: IVANA D: ??02/05/2024 10:23 AM T: ??02/05/2024 10:23 AM Report ID: [id number] Reading Location: ??[id number] Procedure Note Robby Duvall Jr., MD - 02/05/2024 EXAM DESCRIPTION: XR SPINE LUMBAR 2 OR 3 VIEWS; XR HIP RIGHT 2 OR 3VIEWS REASON FOR STUDY: pain, c/f fx Pt to triage for R hip and back pain. Pt states she had surgery 1 year agoand her pain is coming back like before her surgery. Pt states she had aToradol shot Friday and it did not help the pain at all. TECHNIQUE: XR SPINE LUMBAR 2 OR 3 VIEWS; XR HIP RIGHT 2 OR 3 VIEWS COMPARISON: Lumbar spine radiographs 09/10/2022. CT abdomen and pelvis 09/09/2023. FINDINGS: Lumbar spine: There is a levocurvature of the lumbar spine. Vertebralbody heights and the alignment are normal. There is moderate to severe degenerative change with some areas of vacuum disc phenomena. Mildsclerosis along the sacroiliac joints. There is the capsular density over the right upper quadrant, this may be a foreign body or potentially external to the patient 3.2 x 0.6 cm. No lumbar spine fracture is identified. There isgrade 1 anterolisthesis L3 on L4 and L4 on L5. Vacuum disc phenomena atmultiple levels. There appears to be mild anterior height loss at T11 slightly progressive from the prior study but favored to be degenerative. Facet arthropathy is noted. Vascular calcifications noted of the abdominalaorta. Right hip: No acute fracture or dislocation. The obturator ring isintact. The sacroiliac joint and pubic symphysis maintained. No erosion oraggressive osseous lesion. IMPRESSION: No evidence of an acute osseous abnormality of the lumbar spine or righthip. Moderate to severe lumbar spondylosis. Mild anterior height loss at T11 slightly progressive from the priorstudy but favored to be degenerative. If symptoms persist despite conservative management, could considerfollow-up CT imaging as clinically indicated. Grade 1 anterolisthesis L3 on L4 and L4 on L5. Capsular density over the right upper quadrant may be a foreign body or potentially external to the patient. THIS IS AN ELECTRONICALLY VERIFIED FINAL REPORT 02/05/2024 10:23 AM - Electronically signed by Robby Duvall M.D. CH: Report ID: [id number] Reading Location: [id number] Devang Lucero MD IMG XR PROCEDURES F inal Result * eGFR (09/09/2023 9:13 AM CDT) eGFR >90 >=60 mL/min/1. 73 m2 Comment: Interpretive Data Reference Interval Normal ?>/= 90 mL/min/1.73m2 Mildly decreased* ? 60 - 89 mL/min/1.73m2 Mildly to moderately decreased ?45 - 59 mL/min/1.73m2 Moderately to severely decreased ??30 - 44 mL/min/1.73m2 Severely decreased ?15 - 29 mL/min/1.73m2 Kidney Failure ?< 15 ??mL/min/1.73m2 *Relative to young adult level Estimated glomerular filtration rate is determined by the 2020 CKD-EPI equation recommended by the National Kidney Foundation (A Unifying Approach to GFR Estimation: Recommendations of the NKF-ASK Task Force on Reassessing the Inclusion of Race in Diagnosing Kidney Disease, JASN 202). The CKD-EPI equation should not be used for patients with unstable renal function and has not been validated in children and those over 70. Current interpretive data was last reviewed 2021. Blood 09/09/2023 9:13 AM CDT 09/09/2023 9:20 AM CDT Devang Lucero MD LAB BLOOD ORDERABLE S Final Result Performing Organization Address [facility] de Phone Number [facility] [place] [address] [place] [address] * (ABNORMAL) Hemoglobin A1c (09/15/2020 10:16 AM CDT) Pathologist [facility] Hgb A1C 9.2(H) 4.0 - 5.6 % [facility] [place] Estimated Average Glucose 217 mg/dL [facility] [place] Comment: The ADA recommends reporting an estimated Average Glucose (eAG) with all Hemoglobin A1c results using the equation derived from a study of 507 normal and diabetic adults. ??Minority populations were underrepresented and children were not included. ?? (Diabetes Care 31:3044-3941, 2008). ??The eAG is not equivalent to a fasting glucose. Blood specimen (specimen) 09/15/2020 10:16 AM CDT 09/15/2020 10:58 AM CDT us Dot Good MD LAB BLOOD ORDERABLES Final Result Performing Organization Address [facility] de Phone Number [facility] ([place] [address] [place] [id number] * (ABNORMAL) Lipid panel (01/21/2020 10:49 AM CDT) Pathologist [facility] Cholesterol 241(H) 30 - 199 mg/dL [facility] Comment: Interpretive Data Ages < or = 19 years ??Acceptable: ? <170 mg/dL ??Borderline high: ??170-199 mg/dL ??High: ? >or= 200 mg/dL Ages > or = 20 years ??Desirable: ?<200 mg/dL ??Borderline high: ??200-239 mg/dL ??High: ? >or= 240 mg/dL Literature References: 1. Expert Panel on Integrated Guidelines for Cardiovascular Health and Risk Reduction in Children and Adolescents. Pediatrics 2011;128:S213 2. NCEP Expert Panel. Circulation 2004;110:227 Current Interpretive Data was last revised on 2017. Triglycerides 160(H) <=149 mg/dL [facility] ([place]) Comment: Interpretive Data Ages < or = 9 years ??Acceptable: ? <75 mg/dL ??Borderline high: ??75-99 mg/dL ??High: ? >or= 100 mg/dL Ages 10 to 20 years ??Acceptable: ? <90 mg/dL ??Borderline high: ??90-129 mg/dL ??High: ? >or= 130 mg/dL Ages > or = 20 years ??Desirable: ?<150 mg/dL ??Borderline high: ??150-199 mg/dL ??High: ? 200-499 mg/dL ?Very high: ?? >or= 499 mg/dL Literature References: 1. Expert Panel on Integrated Guidelines for Cardiovascular Health and Risk Reduction in Children and Adolescents. Pediatrics 2011;128:S213 2. NCEP Expert Panel. Circulation 2004;110:227 Current Interpretive Data was last revised on 2017. HDL 55 >=40 mg/dL [facility] ([place]) Comment: Interpretive Data Ages < or = 19 years ??Acceptable: ? >45 mg/dL ??Borderline low: ?? 40-45 mg/dL ??Low: ? <40 mg/dL Ages > or = 20 years ??Desirable: ?>or= 60 mg/dL ??Low: ? <40 mg/dL Literature References: 1. Expert Panel on Integrated Guidelines for Cardiovascular Health and Risk Reduction in Children and Adolescents. Pediatrics 2011;128:S213 2. NCEP Expert Panel. Circulation 2004;110:227 Current Interpretive Data was last revised on 2017. LDL, calculated 154(H) <=129 mg/dL [facility] [place] Comment: Interpretive Data Ages < or = 19 years ??Acceptable: ? <110 mg/dL ??Borderline high: ??110-129 mg/dL ??High: ?>or= 130 mg/dL Ages > or = 20 years ??Optimal: ? <100 mg/dL ??Near optimal: ?100-129 mg/dL ??Borderline high: ?? 130-159 mg/dL ??High: ?>160 mg/dL Literature References: 1. Expert Panel on Integrated Guidelines for Cardiovascular Health and Risk Reduction in Children and Adolescents. Pediatrics 2011;128:S213 2. NCEP Expert Panel. Circulation 2004;110:227 Current Interpretive Data was last revised on 2017. Non-HDL Cholesterol 186 mg/dL [facility] [place] Comment: Interpretive Data Ages < or = 19 years ??Acceptable: ?<120 mg/dL ??Borderline high: ??120-144 mg/dL ??High: ?>145 mg/dL Ages > or = 20 years ??When triglycerides are >200 mg/dL, Non-HDL cholesterol is a secondary target of ? therapy with treatment goals that are 30 mg/dL greater than the LDL cholesterol target. ? Literature References: 1. Expert Panel on Integrated Guidelines for Cardiovascular Health and Risk Reduction in Children and Adolescents. Pediatrics 2011;128:S213 2. NCEP Expert Panel. Circulation 2004;110:227 Current Interpretive Data was last revised on 2017. Chol/HDL ratio 4 [facility] ([place]) Blood specimen (specimen) 01/21/2020 10:49 AM CDT 01/21/2020 10:58 AM CDT us Kevin CAMPOS LAB BLOOD ORDERABLES Final Re sult [facility] [place] [address] [facility] Department [place] [address] * COLONOSCOPY (06/15/2012 12:00 AM CDT) Anatomical Region Laterality Modality Other Narrative 06/15/2012 12:00 AM CDT Ordered by an unspecified provider. Procedure Note ProviderDalila MD - 06/15/2012 12:00 AM CDT PROCEDURE REPORT Patient: BETHANY MALHOTRA Account: [id number] Room No: : 1965 Patient Type: SDS Attend.: Amrik Patel M.D. Admit Date: 06/15/2012 Dict.: Amrik Patel M.D. Disch. Date: 06/15/2012 NAME OF PROCEDURE: Colonoscopy HISTORY A 47-year-old female with a history of severe sudden onset of constipationand change in bowel function. PHYSICAL EXAMINATION Obese female. Lungs are clear. Cardiovascular examination wasunremarkable. PROCEDURE Colonoscopy was performed with the Numedeon video endoscope. The patientwas premedicated by anesthesia. On digital exam, she has grade 2hemorrhoids. We inserted the endoscope and advanced it to the cecum. The colon waswell prepped and well visualized and normal. The patient tolerated theprocedure without difficulty. POSTOPERATIVE DIAGNOSIS Hemorrhoidal disease, otherwise normal. PLAN High fiber diet with MiraLax supplementation. Asher Oseguera TD: 06/15/2012 13:03 CC: Javad Farrar M.D. Authenticated by Amrik Patel MD On 06/16/2012 08:43:08 AM Historical Provider ENDOSCOPY PROCEDURES Monik l Result from Last 3 Months or Most Recently Relevant to Health Maintenance Insurance [employer] PPO [employer] Advance Directives For more information, please contact: [phone] * Full Code (Latest Code Status on File) Date Activated Date Inactivated Comments 08/21/2022 12:56 PM 08/22/2022 5:43 PM Care Teams Manufacturing Support Engineer Relationship Specialty Start Date End Date Kevin Faustin PA [address] [place] [address] PCP - General 07/25/16 Rafat Riley MD [address] [facility] [address] [place] [address] Consulting Physician Neurosurgery 03/08/24
--- OUTSIDE RECORDS SUMMARY | 2024-05-07 12:12 | XMS_ITS | Data Portability ---
Author Organization [facility] ENMAMelanie Draperuday Cardona Address [address] [facility] [place] [address] Care Team Providers Care Physical Education Specialist Name Role Phone ANDREW FAUSTIN Primary Care Provider Assessment No assessment recorded. Plan of Treatment Reminders Order Date Submit Date Provider Last Modified By Organization Details Last Modified Time Details Appointments None recorded . Lab HbA1c (hemoglo bin A1c), blood 2023 024 rey In-Office Order, Internal Use Only DO Not Attach Compendium DO Not Attach Compendium, Do Not Delete/merge, [id number] 10:12:33 influenz a virus A + B + SARS-CoV -2 (COVID19 ) Ag panel, rapid IA, upper respirat ory specimen 2024 025 TYRELL In-Office Order, Internal Use Only DO Not Attach Compendium DO Not Attach Compendium, Do Not Delete/merge, [id number] 17:20:56 drug screen, urine 2024 025 TYRELL In-Office Order, Internal Use Only DO Not Attach Compendium DO Not Attach Compendium, Do Not Delete/merge, [id number] 17:24:12 Referral pain manageme nt referral 2023 024 bo Moran MD, [address], [place], [address], 5 12:33:50 pain manageme nt referral 2023 024 bo [facility], [address], [place], [address], 5 17:43:53 Procedures None recorded . Surgeries None recorded . Imaging None recorded . Medication Orders buspiron e 15 mg tablet 2023 024 [facility], [address] , [place], [address], 4 11:21:15 atorvast atin 10 mg tablet 2024 025 [facility], [address], [place], [address], 5 17:08:40 Patient TargetsNo targets recorded. Patient Instructions Encounter Date Encounter Id Patient Instructions Last Modified By Organization Details Last Modified Time 02/25/2024 [id number] learning about high blood sugar jnanney Not available 02/25/2024 10:12:33 A healthy lifestyle: care instructions jnanney Not available 02/25/2024 10:28:58 04/15/2024 [id number] A healthy lifestyle: care instructions jnanney Not available 04/15/2024 16:08:58 Reason for Referral Pain Management Referral for Lumbar radiculopathy Referring Physician: Andrew Faustin [facility], Encounter Date: 03/09/2024 Pain Management Referral for Lumbar radiculopathy Referring Physician: Andrew Faustin [facility], Encounter Date: 04/01/2024 Results Created Date Observation Date Name Description Value Unit Range Abnormal Flag Note LastModifiedBy Organization Detail LastModifiedTime 02/25/20 24 02/25/2024 HbA1c (hemo globi n A1c), blood HbA1c 6.2 Not Available In-Office Order Internal Use Only DO Not Attach Compendium DO Not Attach Compendium, Do Not Delete/merge, [id number] 02/24/2024 16:49:46 05/04/19 25 05/04/2024 drug scree n, urine Methamphetam ine Negati ve Not Available In-Office Order Internal Use Only DO Not Attach Compendium DO Not Attach Compendium, Do Not Delete/merge, 05/04/2024 09:29:04 05/04/1905/04/2024 drug scree n, urine THC Positi ve Not Available In-Office Order Internal Use Only DO Not Attach Compendium DO Not Attach Compendium, Do Not Delete/merge, 05/04/2024 09:29:04 05/04/1905/04/2024 drug scree n, urine Cocaine (Ned) Negati ve Not Available In-Office Order Internal Use Only DO Not Attach Compendium DO Not Attach Compendium, Do Not Delete/merge, 05/04/2024 09:29:04 05/04/1905/04/2024 drug scree n, urine Benzodiazepi ne (Bzo) Positi ve Not Available In-Office Order Internal Use Only DO Not Attach Compendium DO Not Attach Compendium, Do Not Delete/merge, 05/04/2024 09:29:04 05/04/1905/04/2024 drug scree n, urine Methadone (Mtd) Negati ve Not Available In-Office Order Internal Use Only DO Not Attach Compendium DO Not Attach Compendium, Do Not Delete/merge, 05/04/2024 09:29:04 05/04/19 25 05/04/2024 drug scree n, urine Buprenorphin e (Bup) Negati ve Not Available In-Office Order Internal Use Only DO Not Attach Compendium DO Not Attach Compendium, Do Not Delete/merge, 05/04/2024 09:29:04 05/04/1905/04/2024 drug scree n, urine Oxycodone (Oxy) Negati ve Not Available In-Office Order Internal Use Only DO Not Attach Compendium DO Not Attach Compendium, Do Not Delete/merge, 05/04/2024 09:29:04 05/04/19 25 05/04/2024 drug scree n, urine Barbiturates (Bar) Negati ve Not Available In-Office Order Internal Use Only DO Not Attach Compendium DO Not Attach Compendium, Do Not Delete/merge, 05/04/2024 09:29:04 05/04/19 25 05/04/2024 drug scree n, urine MDMA (Ecstacy) Negati ve Not Available In-Office Order Internal Use Only DO Not Attach Compendium DO Not Attach Compendium, Do Not Delete/merge, 05/04/2024 09:29:04 05/04/19 25 05/04/2024 drug scree n, urine Amphetamines (Amp) Negati ve Not Available In-Office Order Internal Use Only DO Not Attach Compendium DO Not Attach Compendium, Do Not Delete/merge, 05/04/2024 09:29:04 05/04/19 25 05/04/2024 drug scree n, urine Opiates (opi) Negati ve Not Available In-Office Order Internal Use Only DO Not Attach Compendium DO Not Attach Compendium, Do Not Delete/merge, 05/04/2024 09:29:04 05/04/19 25 05/04/2024 drug scree n, urine Phencyclidin e (Pcp) Negati ve Not Available In-Office Order Internal Use Only DO Not Attach Compendium DO Not Attach Compendium, Do Not Delete/merge, 05/04/2024 09:29:04 05/04/1905/04/2024 drug scree n, urine Tricyclic Antidepressa nts Negati ve Not Available In-Office Order Internal Use Only DO Not Attach Compendium DO Not Attach Compendium, Do Not Delete/merge, 05/04/2024 09:29:04 05/04/1905/04/2024 drug scree n, urine Fentanyl Negati ve Not Available In-Office Order Internal Use Only DO Not Attach Compendium DO Not Attach Compendium, Do Not Delete/merge, 05/04/2024 09:29:04 05/04/19 25 05/04/2024 influ la virus A + B + SARS- CoV-2 (COVI D19) Ag panel , rapid IA, upper respi rator y speci men Flu A negati ve Not Available In-Office Order Internal Use Only DO Not Attach Compendium DO Not Attach Compendium, Do Not Delete/merge, 05/04/2024 17:11:14 05/04/19 25 05/04/2024 influ la virus A + B + SARS- CoV-2 (COVI D19) Ag panel , rapid IA, upper respi rator y speci men Flu B negati ve Not Available In-Office Order Internal Use Only DO Not Attach Compendium DO Not Attach Compendium, Do Not Delete/merge, [id number] 05/04/2024 17:11:14 05/04/19 25 05/04/2024 influ la virus A + B + SARS- CoV-2 (COVI D19) Ag panel , rapid IA, upper respi rator y speci men Rapid SARS CoV 2 Ag, QL IA, respiratory specimen negati ve Not Available In-Office Order Internal Use Only DO Not Attach Compendium DO Not Attach Compendium, Do Not Delete/merge, [id number] 05/04/2024 17:11:14 02/09/20 24 02/05/2024 imagi ng/di agnos tic resul t No observ ation record ed. [address] , [place], [address], 02/09/2024 17:12:41 02/11/20 24 02/11/2024 MRI, lumba r spine , w/o contr ast No observ ation record ed. [facility] [address], [place], [address], 02/12/2024 10:50:30 03/09/20 24 03/08/2024 XR, lumba r spine No observ ation record ed. [facility] [address] [address] , [place], [address], 03/09/2024 13:03:37 Result Notes None recorded. Problems Name Problem SNOMED Code Status Onset Date Resolution Date Notes Provider Name and Address Organization Details Recorded Time Diabetes mellitus [id number] Active 019 Andree Arteaga MA null, [place] - [facility] 0 10:06:25 Problem Notes None recorded. Procedures Surgical History Date Name Laterality Status Provider Name and Address Organization Details Recorded Time 04/07/19 16 colonoscopy completed Kirsten Ortega MA [facility] 06/22/2019 11:36:51 08/06/19 04 Total hysterectomy completed Kirsten Ortega MA [facility] 06/22/2019 11:31:54 Appendectomy completed Amanda Ruiz MA [facility] 05/29/2016 12:03:23 Gastrointestinal Surgery completed Amanda Ruiz MA [facility] 05/29/2016 12:03:30 Caesarean Section completed Amanda Ruiz MA [facility] 05/29/2016 12:03:47 Imaging Results Imaging Date Name Status LastModified by Organiz ation Details LastModified Time 02/05/2024 imaging/diagn ostic result completed [address] [place], [address], 02/09/2024 17:12:41 02/11/2024 MRI, lumbar spine, w/o contrast completed [facility] [address] [address], [place], [address], 02/12/2024 10:50:30 03/08/2024 XR, lumbar spine completed [facility] [address] [place] [place] [address] , [place], [address], 03/09/2024 13:03:37 Procedure Notes None recorded. Medical Equipment None Reported. Allergies Allergen ID Allergen Name Allergen Category Reaction Reaction Severity Criticality Documentation Date Start Date Code Code System Note Provider Name and Address Organization Details Recorded Time [id number] Levaquin medicatio n other Not available Not available 06/30/2020 95225 2 RxNorm Not Available Not Available Not Available [id number] Tylenol with Codeine medicatio n abdominal pain Not available Not available 02/16/202446493 6 RxNorm Not Available Not Available Not Available Medications Name Sig Start Date Stop Date Status Note LastModified by Organization Details LastModified Time celecoxib 200 mg capsule 200 mg by oral route. 06/30 completed Not Available Not Available Not Available cyclobenzap rine 10 mg tablet 10 mg by oral route. 02/03 completed Not Available Not Available Not Available metformin 500 mg tablet TAKE ONE TABLET BY MOUTH TWO TIMES A DAY WITH MEALS 03/20 completed Not Available Not Available Not Available hydrocodone 7.5 mg-ibuprofe n 200 mg tablet 07/03 completed Not Available Not Available Not Available atorvastati n 20 mg tablet Take 1 tablet every day by oral route for 90 days. 02/15 completed Not Available Not Available Not Available ipratropium 0.5 mg-albutero l 3 mg (2.5 mg base)/3 mL nebulizatio n soln 1 VIAL PER NEBULIZAT ION ROUTE 4 TIMES DAILY FOR 30 DAYS. 04/05 completed Not Available Not Available Not Available clindamycin HCl 300 mg capsule Take 1 capsule every 6 hours by oral route for 10 days. 05/16 completed Not Available Not Available Not Available albuterol sulfate 2.5 mg/3 mL (0.083 %) solution for nebulizatio n INHALE 3 ML 4 TIMES A DAY BY NEBULIZAT ION ROUTE NEEDED FOR 30 DAYS. 04/05 completed Not Available Not Available Not Available atorvastati n 10 mg tablet Take 1 tablet every day by oral route for 90 days. 2024 active Not Available Not Available Not Avai lable azithromyci n 250 mg tablet TAKE 2 TABLETS BY ORAL ROUTE DAY ONE THEN TAKE ONE TABLET BY ORAL ROUTE DAYS 2-5 TILL ALL TAKEN 08/08 completed Not Available Not Available Not Available ibuprofen 800 mg tablet Take 1 tablet 3 times a day by oral route for 10 days. 07/03 completed Not Available Not Available Not Available tizanidine 4 mg tablet TAKE ONE AND ONE-HALF TABLET BY MOUTH THREE TIMES a DAY NEEDED active Not Available Not Available No t Available hydrocodone 5 mg-acetamin ophen 325 mg tablet 05/19 completed Not Available Not Available Not Available meloxicam 15 mg tablet 1 tablet daily active Not Available Not Available No t Available lisinopril 20 mg tablet TAKE ONE TABLET BY MOUTH ONCE a DAY active Not Available Not Available No t Available prednisone 20 mg tablet 10/27 completed Not Available Not Available Not Available acetazolami de 250 mg tablet Take 1 tablet twice a day by oral route as needed for 5 days. 05/16 completed Not Available Not Available Not Available clindamycin HCl 150 mg capsule TAKE ONE CAPSULE BY MOUTH EVERY DAY TILL GONE 03/20 completed Not Available Not Available Not Available metronidazo le 500 mg tablet 02/11 completed Not Available Not Available Not Available acetaminoph en 300 mg-codeine 30 mg tablet Take 1 tablet every 6 hours by oral route for 10 days. 02/15 completed Not Available Not Available Not Available ciprofloxac in 500 mg tablet TAKE ONE TABLET BY MOUTH EVERY TWELVE HOURS TILL GONE 02/11 completed Not Available Not Available Not Available sulfamethox azole 800 mg-trimetho prim 160 mg tablet Take 1 tablet every 12 hours by oral route for 10 days. 06/05 completed Not Available Not Available Not Available hydrocodone 10 mg-acetamin ophen 325 mg tablet 02/11 completed Not Available Not Available Not Available tramadol 50 mg tablet TAKE TWO TABLET BY MOUTH THREE TIMES a DAY NEEDED 05/03 completed Not Available Not Available Not Available ondansetron 8 mg disintegrat ing tablet TAKE 1 TABLET (8 MG TOTAL) BY MOUTH EVERY 8 (EIGHT) HOURS NEEDED FOR NAUSEA OR VOMITING active Not Available Not Available No t Available Depo-Medrol 80 mg/mL suspension for injection Take 1 mL by injection route. 06/12 completed Not Available Not Available Not Available oxycodone-a cetaminophe n 5 mg-325 mg tablet TAKE 1 TABLET BY MOUTH EVERY 4 (FOUR) HOURS NEEDED FOR PAIN 03/20 completed Not Available Not Available Not Available alprazolam 0.5 mg tablet TAKE TAKE ONE TABLET THREE (3) TIMES a DAY BY MOUTH NEEDED 2024 active Not Available Not Available Not Avai lable Guaiatussin AC 10 mg-100 mg/5 mL oral liquid Take 10 mL every 4 hours by oral route as needed. 02/15 completed Not Available Not Available Not Available amoxicillin 875 mg tablet TAKE ONE TABLET BY MOUTH TWO TIMES A DAY TILL GONE 08/22 completed Not Available Not Available Not Available dicyclomine 20 mg tablet Take 1 tablet 4 times a day by oral route as needed for 30 days. active Not Available Not Available No t Available baclofen 10 mg tablet TAKE 1 TABLET 4 TIMES A DAY BY ORAL ROUTE FOR 30 DAYS. 03/20 completed Not Available Not Available Not Available benzonatate 100 mg capsule 05/29 completed Not Available Not Available Not Available hydrocodone 7.5 mg-acetamin ophen 325 mg tablet TAKE ONE TABLET BY MOUTH EVERY 4 TO 6 HOURS NEEDED FOR PAIN 08/08 completed Not Available Not Available Not Available cephalexin 500 mg capsule Take 1 capsule 3 times a day by oral route for 10 days. 08/25 completed Not Available Not Available Not Available metformin 1,000 mg tablet 1000 mg by oral route. 02/03 completed Not Available Not Available Not Available triamcinolo ne acetonide 0.1 % topical ointment APPLY A THIN LAYER TO THE AFFECTED AREA(S) BY TOPICAL ROUTE 2 TIMES PER DAY 02/11 completed Not Available Not Available Not Available buspirone 10 mg tablet Take 1 tablet twice a day by oral route for 30 days. 05/03 completed Not Available Not Available Not Available albendazole 200 mg tablet Take 2 tablets every day by oral route for 2 days. 05/16 completed Not Available Not Available Not Available prednisone 50 mg tablet TAKE 1 TABLET BY MOUTH DAILY FOR 5 DAYS. 09/14 completed Not Available Not Available Not Available lidocaine 5 % topical patch APPLY 1 PATCH BY TOPICAL ROUTE ONCE DAILY (MAY WEAR UP TO 12HOURS.) active Not Available Not Available No t Available mupirocin calcium 2 % topical cream APPLY A SMALL AMOUNT TO THE AFFECTED AREA BY TOPICAL ROUTE 3 TIMES PER DAY FOR 10 DAYS 06/30 completed Not Available Not Available Not Available gabapentin 300 mg capsule TAKE 1 CAPSULE 3 TIMES A DAY BY ORAL ROUTE FOR 30 DAYS. 03/20 completed Not Available Not Available Not Available diclofenac sodium 75 mg tablet,allan yed release Take 1 tablet twice a day by oral route for 30 days. 06/30 completed Not Available Not Available Not Available hydrocortis one 2.5 % topical cream APPLY A THIN LAYER TO THE AFFECTED AREA(S) BY TOPICAL ROUTE 2 TIMES PER DAY 06/05 completed Not Available Not Available Not Available montelukast 10 mg tablet TAKE 1 TABLET EVERY DAY BY ORAL ROUTE FOR 90 DAYS. 03/20 completed Not Available Not Available Not Available mupirocin 2 % topical ointment APPLY A SMALL AMOUNT TO THE AFFECTED AREA BY TOPICAL ROUTE 3 TIMES PER DAY 06/30 completed Not Available Not Available Not Available cefuroxime axetil 500 mg tablet Take 1 tablet every 12 hours by oral route for 10 days. 07/03 completed Not Available Not Available Not Available levofloxaci n 500 mg tablet TAKE 1 TABLET BY MOUTH DAILY FOR 10 DAYS. 09/14 completed Not Available Not Available Not Available oxycodone-a cetaminophe n 7.5 mg-325 mg tablet 07/03 completed Not Available Not Available Not Available methylpredn isolone 4 mg tablets in a dose pack Take 1 dose pk by oral route as directed. 03/28 completed Not Available Not Available Not Available albuterol sulfate HFA 90 mcg/actuati on aerosol inhaler INHALE TWO (2) PUFF(S) EVERY FOUR (4) HOURS BY INHALATIO N ROUTE NEEDED FOR 30 DAYS. active Not Available Not Available No t Available ketorolac 60 mg/2 mL intramuscul ar solution Inject 1 mL by intramusc ular route. 02/15 completed Not Available Not Available Not Available morphine 15 mg immediate release tablet 04/01 completed Not Available Not Available Not Available lisinopril 40 mg tablet TAKE 1 TABLET EVERY DAY BY ORAL ROUTE FOR 90 DAYS. 06/12 completed Not Available Not Available Not Available ondansetron 4 mg disintegrat ing tablet active Not Available Not Available N ot Available cefdinir 300 mg capsule Take 1 capsule every 12 hours by oral route for 10 days. 07/03 completed Not Available Not Available Not Available lisinopril 2.5 mg tablet Take 2.5 mg by oral route. 06/30 completed Not Available Not Available Not Available naproxen 500 mg tablet Take 1 tablet twice a day by oral route for 30 days. 02/11 completed Not Available Not Available Not Available diazepam 5 mg tablet 07/03 completed Not Available Not Available Not Available amoxicillin 875 mg-potassiu m clavulanate 125 mg tablet Take 1 tablet every 12 hours by oral route for 10 days. 06/05 completed Not Available Not Available Not Available buspirone 15 mg tablet Take 1 tablet twice a day by oral route for 90 days. active Not Available Not Available No t Available azithromyci n 500 mg tablet Take 1 tablet every day by oral route for 3 days. 08/22 completed Not Available Not Available Not Available escitalopra m 10 mg tablet Take 1 tablet every day by oral route for 90 days. active Not Available Not Available No t Available Zetia 10 mg tablet Take 1 tablet every day by oral route for 90 days. 06/30 completed Not Available Not Available Not Available cyclobenzap rine 5 mg tablet 02/11 completed Not Available Not Available Not Available Riomet 500 mg/5 mL oral solution 06/30 completed Not Available Not Available Not Available nitrofurant oin monohydrate /macrocryst als 100 mg capsule Take 1 capsule every 12 hours by oral route for 10 days. 09/29 completed Not Available Not Available Not Available Zanaflex 6 mg capsule Take 1 capsule 3 times a day by oral route for 30 days. 06/30 completed Not Available Not Available Not Available pregabalin 75 mg capsule TAKE ONE (1) CAPSULE BY MOUTH TWO TIMES a DAY 04/17 completed Not Available Not Available Not Available pregabalin 150 mg capsule Take 1 capsule twice a day by oral route for 30 days. active Not Available Not Available No t Available chlorhexidi ne gluconate 0.12 % mouthwash 07/03 completed Not Available Not Available Not Available cyclobenzap rine 10mg 1 po prn 07/03 completed Not Available Not Available Not Available Januvia 100 mg tablet TAKE ONE (1) TABLET EVERY DAY BY ORAL ROUTE 09/29 completed Not Available Not Available Not Available Tradjenta 5 mg tablet TAKE 1 TABLET(S) EVERY DAY BY ORAL ROUTE FOR 90 DAYS. 06/30 completed Not Available Not Available Not Available Duexis 800 mg-26.6 mg tablet 06/30 completed Not Available Not Available Not Available True Metrix Glucose Test Strip TESTING TWICE A DAY active Not Available Not Available No t Available Rhinocort Allergy 32 mcg/actuati on nasal spray Take 1 spray twice a day by nasal route for 30 days. 07/03 completed Not Available Not Available Not Available Vitals Date Recorded Body height Provider Name an d Address Organization Details Last Updated DateTime 02/25/2024 162.56 cm Emiliana Mendez MA [facility] 02/25/20 09:57:23 Date Recorded Body mass index (BMI) Body weight Provider Name and Address Organization Details Last Updated DateTime 02/25/2024 30.4 kg/m2 04028.85 g Emiliana Mendez MA [facility] 02/25/2024 09:57:27 Date Recorded Oxygen saturation Oxygen saturation in Arterial blood by Pulse oximetry Provider Name and Address Organization Details Last Updated DateTime 02/25/2024 96 % 96 % Emiliana Mendez [place] [facility] 02/25/2024 10:00:55 Date Recorded Heart rate Provider Name an d Address Organization Details Last Updated DateTime 02/25/2024 52 /min Emiliana Mendez MA [facility] 02/25/20 10:00:57 Date Recorded Body height Provider Name an d Address Organization Details Last Updated DateTime 03/09/2024 162.56 cm Emiliana Mendez MA [facility] 03/09/20 11:01:19 Date Recorded Body mass index (BMI) Body weight Provider Name and Address Organization Details Last Updated DateTime 03/09/2024 31.8 kg/m2 26317.59 g Emiliana Mendez MA [facility] 03/09/2024 11:01:23 Date Recorded Oxygen saturation Oxygen saturation in Arterial blood by Pulse oximetry Provider Name and Address Organization Details Last Updated DateTime 03/09/2024 97 % 97 % Emiliana Mendez MA [facility] 03/09/2024 11:04:35 Date Recorded Heart rate Provider Name an d Address Organization Details Last Updated DateTime 03/09/2024 66 /min Emiliana Mendez MA [facility] 03/09/20 11:04:38 Date Recorded Body height Provider Name an d Address Organization Details Last Updated DateTime 04/01/2024 162.56 cm Emiliana Mendez MA [facility] 04/01/20 10:32:48 Date Recorded Body mass index (BMI) Body weight Provider Name and Address Organization Details Last Updated DateTime 04/01/2024 31.3 kg/m2 78696.26 g Emiliana Mendez MA [facility] 04/01/2024 10:32:54 Date Recorded Oxygen saturation Oxygen saturation in Arterial blood by Pulse oximetry Provider Name and Address Organization Details Last Updated DateTime 04/01/2024 98 % 98 % Emiliana Mendez MA [facility] 04/01/2024 10:36:10 Date Recorded Heart rate Provider Name an d Address Organization Details Last Updated DateTime 04/01/2024 71 /min Emiliana Mendez MA [facility] 04/01/20 24 10:36:14 Date Recorded Body height Provider Name an d Address Organization Details Last Updated DateTime 04/15/2024 162.56 cm Emiliana Mendez MA [facility] 04/15/19 15:41:29 Date Recorded Body mass index (BMI) Body weight Provider Name and Address Organization Details Last Updated DateTime 04/15/2024 29.2 kg/m2 46229.7 g Emiliana Mendez MA [facility] 04/15/2024 15:41:32 Date Recorded Oxygen saturation Oxygen saturation in Arterial blood by Pulse oximetry Provider Name and Address Organization Details Last Updated DateTime 04/15/2024 96 % 96 % Emiliana Mendez MA [facility] 04/15/2024 15:44:26 Date Recorded Heart rate Provider Name an d Address Organization Details Last Updated DateTime 04/15/2024 81 /min Emiliana Mendez MA [facility] 04/15/19 15:44:29 Date Recorded Body height Provider Name an d Address Organization Details Last Updated DateTime 05/04/2024 162.56 cm Maddie Ayala MA [facility] 025 16:51:39 Date Recorded Body mass index (BMI) Body weight Provider Name and Address Organization Details Last Updated DateTime 05/04/2024 29.2 kg/m2 10169.14 g Maddie Ayala MA [facility] 05/04/2024 16:56:45 Date Recorded Oxygen saturation Oxygen saturation in Arterial blood by Pulse oximetry Provider Name and Address Organization Details Last Updated DateTime 05/04/2024 97 % 97 % Maddie [facility]ala [facility] [facility]24 16:58:12 Date Recorded Heart rate Provider Name an d Address Organization Details Last Updated DateTime 05/04/2024 65 /min Maddie Ayala MA [facility] 025 16:58:14 Date Recorded Respiratory rate Provider Name a nd Address Organization Details Last Updated DateTime 05/04/2024 16 /min Maddie Ayala MA [facility] 025 16:58:16 Date Recorded Body temperature Provider Name a nd Address Organization Details Last Updated DateTime 05/04/2024 98.5 [degF] Maddie Ayala MA [facility] 2024 16:58:40 Date Recorded Systolic blood pressure Diastolic blood pressure Provider Name and Address Organization Details Last Updated DateTime 02/25/2024 152 mm[Hg] 76 mm[Hg] Emiliana Mendez MA [facility] 02/25/2024 10:01:00 Date Recorded Systolic blood pressure Diastolic blood pressure Provider Name and Address Organization Details Last Updated DateTime 03/09/2024 137 mm[Hg] 78 mm[Hg] Emiliana Mendez MA [facility] 03/09/2024 11:04:43 Date Recorded Systolic blood pressure Diastolic blood pressure Provider Name and Address Organization Details Last Updated DateTime 04/01/2024 123 mm[Hg] 71 mm[Hg] Emiliana Mendez MA [facility] 04/01/2024 10:36:26 Date Recorded Systolic blood pressure Diastolic blood pressure Provider Name and Address Organization Details Last Updated DateTime 04/15/2024 174 mm[Hg] 72 mm[Hg] Emiliana Mendez MA [facility] 04/15/2024 15:45:13 Date Recorded Systolic blood pressure Diastolic blood pressure Provider Name and Address Organization Details Last Updated DateTime 05/04/2024 132 mm[Hg] 86 mm[Hg] Maddie Ayala MA [facility] 05/04/2024 16:58:03 Social History Question Answer Notes LastModified by Organizat ion Details LastModified Time Tobacco Smoking Status Current Every Day Smoker CALE Andres, [facility] 05/29/2016 12:06:11 Do You Have An Advance Directive? No Information not available 06/22/2019 What Is Your Level Of Alcohol Consumption? None Information not available 02/03/2024 Are You Blind Or Do You Have Difficulty Seeing? No Information not available 09/26/2020 What Is Your Level Of Caffeine Consumption? Heavy Information not available 06/22/2019 How Much Tobacco Do You Chew? None Information not available 06/22/2019 In The 14 Days Before Symptom Onset, Have You Had Close Contact With A Laboratory-confi rmed COVID-19 While That Case Was Ill? No Information not available 06/22/2019 If Patient Spent Time In [facility] - Does The Patient Live In [facility]? No Information not available 06/22/2019 In The 14 Days Before Symptom Onset, Have You Had Close Contact With A Person Who Is Under Investigation For COVID-19 While That Person Was Ill? No Information not available 06/22/2019 In The 14 Days Before Symptom Onset, Did The Patient Spend Time In [facility]? No Information not available 06/22/2019 Have You Been To An Area Known To Be High Risk For COVID-19? No Information not available 06/22/2019 Are You Currently Employed? Yes Information not available 06/28/2020 Are You Deaf Or Do You Have Serious Difficulty Hearing? No Information not available 09/26/2020 What Type Of Diet Are You Following? REGULAR Low Carb Information not available 08/08/2021 Which Illicit Or Recreational Drugs Have You Used? None Information not available 06/22/2019 Do You Or Have You Ever Used E-cigarettes Or Vape? 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 No Information not available 09/26/2020 Hard Of Hearing Or Deaf In One Or Both Ears? No Information not available 06/22/2019 Legally Blind In One Or Both Eyes? No Information not available 06/22/2019 Live Alone Or With Others? With Others Information not available 06/22/2019 What Was The Date Of Your Most Recent Tobacco Screening? 05/04/2024 Information not available 05/04/2024 How Many Children Do You Have? 2 Information not available 06/22/2019 What Is Your Current Pack Years? 10-19pacharlene wilson [email or web address] Information not available 03/20/2021 What Is Your Relationship Status? Information not available 06/26/2020 Do You Use Your Seat Belt Or Car Seat Routinely? Yes Information not available 09/26/2020 Smoke Alarm In Home Yes Information not available 06/22/2019 Do You Have Smoke And Carbon Monoxide Detectors In Your Home? Yes Information not available 09/26/2020 At What Age Did You Start Smoking Tobacco? 18 Information not available 06/22/2019 Are You Passively Exposed To Smoke? Yes Information not available 06/22/2019 Do You Or Have You Ever Used Smokeless Tobacco? Never Used Smokeless Tobacco Information not available 06/22/2019 How Much Tobacco Do You Smoke? 0.5 PPD Information not available 09/26/2020 General Stress Level Medium Information not available 05/16/2020 Do You Feel Stressed (tense, Restless, Nervous, Or Anxious, Or Unable To Sleep At Night)? [id number] Information not available 08/08/2021 Do You Use Any Illicit Or Recreational Drugs? No Information not available 06/26/2020 Has Tobacco Cessation Counseling Been Provided? Yes [email or web address] Information not available 09/29/2018 On What Date Was Tobacco Cessation Counseling Provided? 05/04/2024 Information not available 05/04/2024 How Many Years Have You Smoked Tobacco? 35 Information not available 06/30/2018 Do You Or Have You Ever Used Any Other Forms Of Tobacco Or Nicotine? Yes Information not available 08/08/2021 Sex: Female Functional Status Question Answer Note LastModified by Organizat ion Details LastModified Time Are you able to care for yourself? Yes Information not available 06/22/2019 What is your exercise level? Occasional Information not available 06/06/2023 Mental Status None recorded. Family History Relationship Description Onset Age of this Age Resolved Age Notes LastModified by Organization Details LastModified Time Father Diabetes mellitus [email or web address] Not available 05/09 12:04:39 Father Heart disease [email or web address] Not available 05/09 12:05:06 Father Hypertensive disorder [email or web address] Not available 05/09 12:05:19 Father Myocardial infarction [email or web address] Not available 12:05:51 Mother Diabetes mellitus [email or web address] Not available 05/09 12:04:47 Mother Hypertensive disorder [email or web address] Not available 05/09 12:05:28 Brother Myocardial infarction [email or web address] Not available 12:05:43 Medical History Condition Response Coronary Artery Disease N Other N Atrial Fibrillation N High Blood Pressure Y Thyroid Problems N Kidney or Bladder Problems N GI Problems N Depression N COPD N Blood Clots N Eating Disorder N Skin Problems N Anemia N Heart Attack (NC) N Anxiety Disorder N Diabetes N Muscle, Joint, or Bone Problems N Seizures/Epilepsy N Acid Reflux (GERD) N Cancer N Stroke N Asthma N Allergies N ADHD N Substance Abuse N High Cholesterol N Hepatitis N Liver Disease N Schizophrenia N Headaches N Heart Failure N Osteoporosis N Gynecological History Statement/Question Response Date of Last Pap Smear Current Control Method Hysterectom y Date of Last Mammogram Date of LMP Obstetrics History GPAL:G 3 P 2 0 1 2 Type Value Multiple Births 0 Full Term 2 Induced 0 Spontaneous 1 Premature 0 Living 2 Ectopics 0 Total 3 Immunizations Vaccine Type Date Status Note Provider Nam e and Address Organization Details Recorded Time COVID-19, mRNA, LNP-S, PF, 30 mcg/0.3 mL dose 1 completed Not Available [facility] 05/12/2023 19:02:25 COVID-19, mRNA, LNP-S, PF, 30 mcg/0.3 mL dose 1 completed Not Available [facility] 05/12/2023 19:02:25 COVID-19, mRNA, LNP-S, PF, 30 mcg/0.3 mL dose 1 completed Not Available [facility] 05/12/2023 19:02:26 Influenza, split virus, quadrivalent, PF 2 completed Not Available [facility] 05/12/2023 19:02:26 Influenza, split virus, quadrivalent, PF 1 completed Not Available [facility] 05/12/2023 19:02:26 COVID-19, mRNA, LNP-S, bivalent, PF, 30 mcg/0.3 mL dose 2 completed Not Available [facility] 05/12/2023 19:02:26 influenza, unspecified formulation 3 completed Not Available [facility] 05/12/2023 19:02:26 COVID-19, mRNA, LNP-S, PF, 30 mcg/0.3 mL dose 1 completed Not Available [facility] 05/12/2023 19:02:25 Influenza, split virus, trivalent, preservative 2 completed Not Available [facility] 10/17/2022 13:04:07 Past Encounters Encounter ID Performer Location Encounter Start Date Encounter Closed Date Diagnosis/Indication Diagnosis SNOMED-CT Code Diagnosis ICD10 Code Diagnosis Note [id number] TAHIR Ernandez [address] [place] [address] 05/29/2016 11:46:49 05/29/2016 13:16:41 Essential hypertension 90400083 I10 Acute maxi llary sinusitis 83794216 J01.01 [id number] TAHIR Ernandez [address] [place] [address] 06/05/2016 10:40:53 06/05/2016 12:16:38 Chronic maxillary sinusitis 78012158 J32.0 [id number] TAHIR Ernandez [address] [place] [address] 06/26/2016 11:12:27 06/26/2016 12:22:35 Drug-induced constipation 95712572 K59.03 [id number] Carol Ferraro MA [facility] [address] [place] [address] 07/03/2017 14:52:41 07/03/2017 17:11:26 Pain in right hip joint 9119082684 27631 M25.551 Low back pain 826501062 M54.5 Acute bronchitis 7160255 2 J20.9 Essential hypertension 37072998 I10 [id number] Andrew Faustin PA-C [facility] [address] [place] [address] 07/08/2017 14:51:46 07/08/2017 16:59:51 Chronic low back pain 724209276 M54.5 Essential hypertension 29667918 I10 Type 2 juan miguel betes mellitus without complication 915348382 E11.9 [id number] Andrew Faustin PA-C [facility] [address] [place] [address] 08/25/2017 11:33:42 08/25/2017 12:30:17 Carbuncle of skin and/or subcutaneous tissue 94602084 L02.93 Hyperglycemia 69075212 R 73.9 [id number] Andrew Faustin PA-C [facility] [address] [place] [address] 09/23/2017 17:50:16 09/23/2017 18:25:22 Diabetes mellitus 42159240 E11.9 Pain in left knee 850370 6638 58052 M25.562 Rheumatoid arthritis 698 07418 M06.9 [id number] Andrew Faustin PA-C [facility] [address] [place] [address] 02/10/2018 15:01:43 02/10/2018 16:07:06 Generalized anxiety disorder 98825082 F41.1 Diabetes mellitus 996677 09 E11.9 Rheumatoid arthritis 698 55137 M06.9 [id number] Andrew Faustin PA-C [facility] [address] [place] [address] 02/23/2018 15:39:35 02/23/2018 16:20:01 Diabetes mellitus 51427020 E11.9 Hyperlipidemia 25805823 E78.01 Lumbar radiculopathy 128 373419 M54.16 [id number] Andrew Faustin PA-C [facility] [address] [place] [address] 05/08/2018 10:54:35 05/08/2018 11:54:12 Cellulitis of face 796131274 L03.442 [id number] Andrew Faustin PA-C [facility] [address] [place] [address] 05/12/2018 10:42:13 05/12/2018 11:50:54 Acute sinusitis 55427237 J01.01 [id number] Anderw Faustin PA-C [facility] [address] [place] [address] 05/19/2018 10:28:42 05/19/2018 11:40:55 Type 2 diabetes mellitus 21138785 E11.9 [id number] Andrew Faustin PA-C [facility] [address] [place] [address] 06/30/2018 10:49:32 06/30/2018 12:05:05 Acute bronchitis 21692953 J20.8 Osteoarthritis 830154866 M19.90 Type 2 juan miguel betes mellitus 21727454 E11.9 Generalize d anxiety disorder 65348728 F41.1 [id number] TAHIR Ernandez [facility] [address] [place] [address] 09/29/2018 11:39:16 09/29/2018 12:43:53 Rib pain 398197005 R07.81 [id number] Andrew Faustin PA-C [facility] [address] [place] [address] 06/22/2019 10:57:31 06/22/2019 12:35:00 Diabetes mellitus 11672814 E11.9 Essential hypertension 02704274 I10 Bilateral knee pain 1187 589501 3768114 M25.561 Generalize d anxiety disorder 53109671 F41.1 [id number] TAHIR Ernandez [facility] [address] [place] [address] 06/25/2019 09:58:41 06/28/2019 08:32:47 Type 2 diabetes mellitus 43588998 E11.9 [id number] TAHIR Ernandez [facility] [address] [place] [address] 12/01/2019 09:32:30 12/06/2019 08:56:01 Diabetes mellitus 37188042 E11.9 Rheumatoid arthritis 698 88839 M06.89 [id number] Andrew Faustin PA-C [facility] [address] [place] [address] 01/07/2020 10:46:00 01/13/2020 08:29:11 Worms in stool 007136952 R19.5 Generalize d anxiety disorder 02429375 F41.1 [id number] Andrew Faustin PA-C [facility] [address] [place] [address] 05/16/2020 11:58:30 05/16/2020 19:06:01 Acute sinusitis 40981615 J01.01 [id number] Andrew Faustin PA-C [facility] [address] [place] [address] 06/26/2020 10:23:03 06/27/2020 17:58:54 Acute bronchitis with bronchospasm 05114229 J20.8 Diabetes mellitus 064890 09 E11.9 Infection of tooth 95340 8007 K04.7 [id number] Andrew Faustin PA-C [facility] [address] [place] [address] 06/28/2020 14:03:13 06/28/2020 17:03:45 Acute bronchitis with bronchospasm 93922238 J20.8 Diabetes mellitus 035170 09 E11.9 [id number] Luz Elena Anaya [facility] [address] [place] [address] 09/14/2020 17:26:43 09/15/2020 14:01:19 Long-term drug therapy 691072300 Z79.534 [id number] Andrew Faustin PA-C [facility] [address] [place] [address] 09/26/2020 16:52:16 09/27/2020 22:40:36 Diabetes mellitus 42744528 E11.9 Body mass index 30+ - obesity 522548718 Z68.39 Pain in right knee 32631 89236 75887 M25.561 Somatic dy sfunction of right upper extremity 9768110141 7291690 M99.07 Primary fi bromyalgia syndrome 26707641 M79.7 [id number] TAHIR Ernandez [facility] [address] [place] [address] 11/14/2020 16:25:16 11/14/2020 17:52:27 Diabetes mellitus 94689589 E11.9 Pain in right knee 37127 98763 64890 M25.589 [id number] TAHIR Ernandez [address] [place] [address] 03/20/2021 10:49:19 03/20/2021 11:52:23 Diabetes mellitus 93996025 E11.9 Lumbar radiculopathy 128 325931 M54.16 Bilateral osteoarthritis of knees 4853662504 31146 M17.0 [id number] TAHIR Ernandez [facility] [address] [place] [address] 04/05/2021 16:17:30 04/05/2021 17:10:55 Diabetes mellitus 42328807 E11.9 Lumbar radiculopathy 128 997708 M54.16 [id number] TAHIR Ernandez [facility] [address] [place] [address] 08/08/2021 17:52:37 08/08/2021 19:04:57 Acute bronchitis with bronchospasm 73782526 J20.8 Essential hypertension 17346250 I10 Long-term drug therapy 766067597 Z79.712 [id number] TAHIR Ernandez [address] [place] [address] 08/22/2021 14:23:55 08/22/2021 15:05:41 Adult health examination 522767862 Z00.00 Lumbar radiculopathy 128 363024 M54.16 [id number] TAHIR Ernandez [facility] [address] [place] [address] 02/15/2022 15:25:22 02/15/2022 16:24:33 Obesity 360081318 E66.9 Lumbar radiculopathy 128 155811 M54.16 [id number] Andrew Faustin PA-C [facility] [address] [place] [address] 02/21/2022 15:11:50 02/21/2022 15:59:41 Epigastric pain 66381913 R10.13 [id number] Andrew Faustin PA-C [facility] [address] [place] [address] 04/17/2022 16:00:33 04/17/2022 17:15:04 Type 2 diabetes mellitus 90757776 E11.9 Lumbar radiculopathy 128 423479 M54.16 Acute maxi llary sinusitis 38612930 J01.01 Upper resp iratory infection 48618568 J00 [id number] Andrew Faustin PA-C [facility] [address] [place] [address] 06/10/2022 10:33:23 06/18/2022 09:07:46 Lumbar radiculopathy 275928462 M54.16 Overweight 638414621 E66 .3 [id number] Andrew Faustin PA-C [facility] [address] [place] [address] 09/03/2022 17:47:13 09/04/2022 14:39:16 Long-term drug therapy 797197737 Z79.899 History of colitis 15981 9006 Z87.19 Right uppe r quadrant pain 031286992 R10.11 Rheumatoid arthritis 698 86174 M06.89 [id number] Andrew Faustin PA-C [facility] [address] [place] [address] 11/19/2022 15:28:26 11/20/2022 11:57:25 Lumbar radiculopathy 315102594 M54.16 Tobacco de pendence syndrome 19443370 F17.200 Overweight 952169247 E66 .3 [id number] Andrew Faustin PA-C [facility] [address] [place] [address] 02/11/2023 13:53:52 02/12/2023 15:11:03 Generalized rash 799534554 R21 Rheumatoid arthritis 698 38836 M06.89 Essential hypertension 36512580 I10 [id number] Andrew Faustin PA-C [facility] [address] [place] [address] 03/28/2023 14:32:01 04/01/2023 12:11:25 Acute maxillary sinusitis 60562693 J01.01 [id number] Andrew Faustin PA-C [facility] [address] [place] [address] 06/06/2023 16:26:49 06/09/2023 16:23:12 Acute pyelonephritis 92008220 N10 Acute low back pain 2788 16694 M54.59 [id number] Andrew Faustin PA-C [facility] [address] [place] [address] 06/13/2023 17:02:24 06/16/2023 17:05:29 Long-term drug therapy 617051462 Z79.899 Dysuria 66341194 R30.0 Recurrent urinary tract infection 452960938 N39.0 [id number] Andrew Faustin PA-C [facility] [address] [place] [address] 09/30/2023 17:48:42 10/02/2023 20:53:33 Irritable bowel syndrome characterized by constipation 821705284 K58.1 Overweight 682270978 E66 .3 [id number] Andrew Faustin PA-C [facility] [address] [place] [address] 10/28/2023 17:19:49 10/30/2023 12:46:57 Overweight 567933535 E66.3 Irritable bowel syndrome 50406685 K58.9 Psoriatic arthritis 1563 34472 L40.50 Spinal william nosis of lumbar region 66254363 M48.062 Generalize d anxiety disorder 00859553 F41.1 Lumbar radiculopathy 128 555731 M54.16 [id number] Andrew Faustin PA-C [facility] [address] [place] [address] 01/15/2024 13:51:31 01/22/2024 10:55:38 Mixed anxiety and depressive disorder 870268912 F41.8 Irritable bowel syndrome with diarrhea 283024959 K58.0 Overweight 107921690 E66 .3 Irritable bowel syndrome characterized by constipation 363427566 K58.1 Essential hypertension 11339747 I10 Lumbar radiculopathy 128 699314 M54.16 [id number] Andrew Faustin PA-C [facility] [address] [place] [address] 02/03/2024 17:59:52 02/05/2024 10:31:04 Lumbar radiculopathy 981904144 M54.16 [id number] Andrew Faustin PA-C [facility] [address] [place] [address] 02/16/2024 16:20:26 02/18/2024 08:44:42 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 757146259 M99.59 Lumbar radiculopathy 128 726109 M54.16 Overweight 450333589 E66 .3 [id number] Andrew Faustin PA-C [facility] [address] [place] [address] 02/25/2024 09:43:26 03/01/2024 11:03:59 Hyperglycemia 80159042 R73.9 Lumbar radiculopathy 128 M54.16 Stenosis o f spinal canal due to intervertebral disc 796356484 M99.59 Overweight 280080810 E66 .3 [id number] Andrew Faustin PA-C [facility] [address] [place] [address] 03/09/2024 10:56:43 03/10/2024 16:10:39 Mixed anxiety and depressive disorder 032785923 F41.8 Lumbar radiculopathy 128 M54.16 [id number] Andrew Faustin PA-C [facility] [address] [place] [address] 04/01/2024 10:28:25 04/05/2024 09:33:58 Backache with radiating pain 280377422 M54.9 Lumbar radiculopathy 128 125415 M54.16 [id number] Andrew Faustin PA-C [facility] [address] [place] [address] 04/15/2024 15:36:55 04/16/2024 12:23:03 Low back pain 037835651 M54.59 Lumbar radiculopathy 128 942240 M54.16 Overweight 793091597 E66 .3 [id number] Andrew Faustin PA-C [facility] [address] [place] [address] 05/04/2024 16:48:30 05/04/2024 17:12:57 Long-term drug therapy 638680842 Z79.899 Acute gastroenteritis 69 685092 K52.82 Lumbar radiculopathy 128 600875 M54.16 Mixed hyperlipidemia 267 695356 E78.2 Health Concerns Section Related Observation LastModified by Organization Detai ls LastModified Time None Recorded Concern Status LastModified by Organization Details LastModified Time None Recorded Advance Directives Directive N: Payers Encounter Date Sequence Insurance Name Policy Number Policy House Covered Member ID House Member ID Guarantor Name 02/25/2024 1 [place] [id number] Bethany Sales [id number] 33 Bethany Sales 03/09/2024 1 [place] [id number] Bethany Sales [id number] Bethany Sales 04/01/2024 1 [place] [id number] Bethany Sales [id number] Bethany Sales 04/15/2024 1 [place] [id number] Bethany Sales [id number] 33 Bethany Sales 05/04/2024 1 [place] [id number] Bethany Sales [id number] 33 Bethany Sales Notes Date Note Type Note Provider Name and Address Organization Details Recorded Time 02/25/2024 text/html going to see neurosurg on 03-08 ... Andrew Faustin PA-C Attn: Accounting, [address] [place], [address], [facility] 02/25/2024 10:29:44 03/09/2024 text/html was told she nee ds a very detailed surhgery...and told she was not a candidate...has appt with Emma in April for second opinion...needs pain mng... Andrew Faustin PA-C Attn: Accounting, [address] [facility], [place], [address], [facility] 03/09/2024 11:25:47 04/01/2024 text/html FMLA paperwork...wants to try a less restrictive pain mng...wants to continue xanax...seeing surgeon on 05/04 Andrew Faustin PA-C Attn: Accounting[address] [facility], [place], [address], [facility] 04/01/2024 10:56:39 04/15/2024 text/html lumbar radiculopathy..... Andrew Faustin PA-C Attn: Accounting[address] [facility], [place], [address], [facility] 04/15/2024 16:09:34 05/04/2024 text/html stomach pains an d fever was having diarrhea and vomiting..was constipated but not now....is improving began 1 week ago....also LDL high will start atorvastatin...als o ear pain Andrew Faustin PA-C Attn: Accounting[address] [facility], [place], [address], [facility] 05/04/2024 17:12:53 OBGyn Episode No OBEpisode recorded.
--- OUTSIDE RECORDS SUMMARY | 2024-05-07 12:12 | XMS_ITS | Referral Summary ---
Author Organization [facility] Address [address] [place] [address] Care Team Providers Care Dispute Resolution Specialist Name Role Phone Kevin Faustin Primary Care Provider [phone] Rafat Riley MD Unavailable Encounters Date Type Department Care Team Description 03/09/2024 Telephone [facility] Scheduling [address] [place] [address] Sandra Correia 03/09/2024 Orders Only [facility] [address] [facility] Medical Office Building [address] [place] [address] Rafat Riley MD Other chronic pain (Primary Dx); Low back pain, non-specific; Other osteoporosis without current pathological fracture; Neck pain; Balance problem; Smoking history 03/09/2024 Telephone [facility] [address] [place] [address] Medical Office Building [address] [place] [address] Samira Arreola MA 03/08/2024 8:36 AM REHAB/PRE VOCATIONAL COUNSELOR - 03/08/2024 11:59 PM REHAB/PRE VOCATIONAL COUNSELOR Hospital Encounter [facility] [address] [place] [address] Low back pain, non-specific Discharge Disposition: Discharge to home or self care 03/08/2024 8:36 AM REHAB/PRE VOCATIONAL COUNSELOR - 03/08/2024 11:59 PM REHAB/PRE VOCATIONAL COUNSELOR Hospital Encounter [facility] [address] [place], [place] [id number] Low back pain, non-specific Discharge Disposition: Discharge to home or self care 03/08/2024 9:00 AM REHAB/PRE VOCATIONAL COUNSELOR Office Visit [facility] [address] Medical Office [address] [place] [address] Rafat Riley MD Scoliosis of thoracolumbar spine, unspecified scoliosis type (Primary Dx); Smoking greater than 25 pack years 02/23/2024 Telephone [facility] [address] [facility] Medical Office Building [address] [place] [address] Samira Arreola MA 02/20/2024 5:10 PM REHAB/PRE VOCATIONAL COUNSELOR - 02/20/2024 11:59 PM REHAB/PRE VOCATIONAL COUNSELOR Hospital Encounter [facility] [address] [place] [id number] Discharge Disposition: Discharge to home or self care 02/19/2024 Telephone [facility] Scheduling [address] [place] [address] Sandra Correia 02/05/2024 9:21 AM CDT - 02/05/2024 12:43 PM CDT Emergency [facility] Emergency Department [address] [place] [address] Devang Lucero MD Acute right-sided low back pain without sciatica (Primary Dx) Discharge Disposition: Discharge to home or self care from Last 3 Months Allergies Active Allergy Reactions Criticality Noted Date Comments Levofloxacin Other (See comments) Low 09/30/2020 Leg pain Medications meloxicam (MOBIC) 15 mg tablet Take 1 tablet (15 mg total) by mouth daily Active ALPRAZolam (XANAX) 0.5 mg tablet Take 1 tablet (0.5 mg total) by mouth nightly as needed for anxiety. 15 tablet 10/30/20 18 Active traMADoL (ULTRAM) 50 mg tablet [...] Lumbar facet arthropathy 05/16/2022 Diabetes mellitus 06/30/2018 Immunizations Name Administration Dates Next Due Influenza, Trivalent, IM (MDV) 01/06/2012 Social History Tobacco Use Types Packs/Day Years [...] 08/22/2022 How often do you attend chur ch or shinto services? Never 08/22/2022 Do you belong to any clubs o r organizations such as christian groups, unions, fraternal or athletic groups, or [...] staff should administer the PHQ-9) 0 08/22/2022 [facility] - Occupational Stress Questionnaire Answer Date [...] place to sleep or slept in a intermediate (including now)? No 08/22/2022 Personal Safety Answer Date Recorded Have you ever been in or are you currently in a harmful physical or emotional relationship or is someone making you feel afraid or unsafe? Denies 02/05/2024 Comments No Sex and Gender Information Value Date Recorded Sex Assigned at Not on file Legal Sex Female 10:39 AM REHAB/PRE VOCATIONAL COUNSELOR Gender Identity Not on file Sexual Orientation Not on file Last Filed Vital Signs Vital Sign Reading Time Taken Comments Blood Pressure 158/54 03/08/2024 9:43 AM REHAB/PRE VOCATIONAL COUNSELOR Pulse 60 03/08/2024 9:43 AM REHAB/PRE VOCATIONAL COUNSELOR Temperature 36.6 ??C (97.8 ??F) 02/05/2024 9:19 AM CD T Respiratory Rate 18 02/05/2024 9:19 AM CDT Oxygen Saturation 99% 03/08/2024 9:43 AM REHAB/PRE VOCATIONAL COUNSELOR Inhaled Oxygen Concentration - - Weight 81.8 kg (180 lb 6.4 oz) 03/08/2024 9:43 A M REHAB/PRE VOCATIONAL COUNSELOR Height 154.9 cm (5' 1 ) 03/08/2024 9:43 AM REHAB/PRE VOCATIONAL COUNSELOR Body Mass Index 34.09 03/08/2024 9:43 AM REHAB/PRE VOCATIONAL COUNSELOR Plan of Treatment Not on file Procedures Procedure Name Priority Date/Time Associated Diagnosis Comments XR SCOLIOSIS AP LAT Schedule Routine, Read Routine (OP Routine) 03/08/2024 9:02 AM REHAB/PRE VOCATIONAL COUNSELOR Low back pain, non-specific XR LUMBAR SPINE AP LAT FLEX EX Schedule Routine, Read Routine (OP Routine) 03/08/2024 9:01 AM REHAB/PRE VOCATIONAL COUNSELOR Low back pain, non-specific NEURO MR OUTSIDE REFERENCE Routine 02/20/2024 5:10 PM REHAB/PRE VOCATIONAL COUNSELOR XR HIP RIGHT 2 OR 3 VIEWS [...] Scoliosis Ap and Lateral (03/08/2024 9:02 AM REHAB/PRE VOCATIONAL COUNSELOR) Anatomical Region Laterality Modality Spine N/A Computed Radiogr aphy 03/08/2024 10:5 2 AM REHAB/PRE VOCATIONAL COUNSELOR Impressions 03/08/2024 10:52 AM REHAB/PRE VOCATIONAL COUNSELOR An outside lumbar spine MRI dated 02/11/2024 [...] Mateusz Mondragon M.D. Narrative 03/08/2024 10:52 AM REHAB/PRE VOCATIONAL COUNSELOR EXAMINATION: XR SPINE LUMBAR AP LAT FLEX [...] by: Mateusz Mondragon M.D. Rafat Riley MD IM XR PROCEDURES Final Re sult * XR Spine Lumbar Ap Lat Flex Ext min 4 Views (03/08/2024 9:01 AM REHAB/PRE VOCATIONAL COUNSELOR) Anatomical Region Laterality Modality L-spine N/A Computed Radiogr aphy 03/08/2024 10:5 2 AM REHAB/PRE VOCATIONAL COUNSELOR Impressions 03/08/2024 10:52 AM REHAB/PRE VOCATIONAL COUNSELOR An outside lumbar spine MRI dated 02/11/2024 [...] Mateusz Mondragon M.D. Narrative 03/08/2024 10:52 AM REHAB/PRE VOCATIONAL COUNSELOR EXAMINATION: XR SPINE LUMBAR AP LAT FLEX [...] Neuro MR Outside Reference (02/20/2024 5:10 PM REHAB/PRE VOCATIONAL COUNSELOR) Impressions [facility] - 02/20/2024 5:10 PM REHAB/PRE VOCATIONAL COUNSELOR These images are for Reference purposes only and have not been reviewed by [facility]. ??There will be no report generated by a [facility] Radiologist. Narrative [facility] - 02/20/2024 5:10 PM REHAB/PRE VOCATIONAL COUNSELOR EXAMINATION: ??Images For Reference Purposes Only Bennett Bowden MD IM MRI PROCEDURES Final R esult [facility] * [...] AM T: ??02/05/2024 10:23 AM Report ID: [id number] Reading Location: ??[id number] Procedure Note Robby Duvall Jr., MD - [...] Robby Duvall M.D. CH: IVANA Report ID: [id number] Reading Location: [id number] us Devang Lucero MD IMG XR PROCEDURES F inal Result * XR [...] AM T: ??02/05/2024 10:23 AM Report ID: [id number] Reading Location: ??[id number] Procedure Note Robby Duvall Jr., MD - [...] Electronically signed by Robby Duvall M.D. CH: CH Report ID: [id number] Reading Location: [place] [address] Devang Lucero MD IMG XR PROCEDURES F [...] 9:13 AM CDT 09/09/2023 9:20 AM CDT us Devang Lucero MD LAB BLOOD ORDERABLE S Final Result Performing Organization Address [facility] Co de Phone Number CHELE [facility]HAN ([place]) [address] [facility] [place] [address] * (ABNORMAL) Hemoglobin A1c (09/15/2020 10:16 AM CDT) Hgb A1C 9.2(H) 4.0 - 5.6 % [facility]LE [facility] ([place]) Estimated Average Glucose 217 mg/dL [facility] ([place]) Comment: The ADA recommends reporting an estimated Average Glucose (eAG) with all Hemoglobin A1c results using the equation derived from a study of 507 normal and diabetic adults. ??Minority populations were underrepresented and children were not included. ?? (Diabetes Care 31:3567-3975, 2008). ??The eAG is not equivalent to a fasting glucose. Blood specimen (specimen) 09/15/2020 10:16 AM CDT 09/15/2020 10:58 AM CDT us Dot Good MD LAB BLOOD ORDERABLES Final Result Performing Organization Address [facility] Co de Phone Number CHELE KH[facility] ([place]) [address] [facility] [place] [address] * (ABNORMAL) Lipid panel (01/21/2020 10:49 AM CDT) Cholesterol 241(H) 30 - 199 mg/dL [facility] ([place]) Comment: Interpretive Data Ages < or = [...] LDL, calculated 154(H) <=129 mg/dL CHELE KHAN ([place]) Comment: Interpretive Data [...] 2017. Non-HDL Cholesterol 186 mg/dL CHELE [facility] ([place]) Comment: Interpretive Data Ages < or = [...] on 2017. Chol/HDL ratio 4 YODIT KHAN ([place]) Blood specimen (specimen) 01/21/2020 10:49 AM CDT 01/21/2020 10:58 AM CDT us Kevin CAMPOS LAB BLOOD ORDERABLES Final Re sult [facility]LE [facility] ([place]) [address] [facility] Department [place] [address] * COLONOSCOPY (06/15/2012 12:00 AM CDT) Anatomical Region Laterality Modality Other Narrative 06/15/2012 12:00 AM CDT Ordered by an unspecified provider. Procedure Note Provider, MD Dalila - 06/15/2012 12:00 AM CDT PROCEDURE REPORT Patient: BETHANY PIEDRA Account: [id number] Room No: : 1965 Patient Type: SDS Attend.: Amrik Patel M.D. Admit Date: 06/15/2012 Dict.: Amrik Patel M.D. Disch. Date: 06/15/2012 NAME OF PROCEDURE: Colonoscopy HISTORY A 47-year-old female with a history of severe sudden onset of constipationand change in bowel function. PHYSICAL EXAMINATION Obese female. Lungs are clear. Cardiovascular examination wasunremarkable. PROCEDURE Colonoscopy was performed with the [employer] video endoscope. The patientwas premedicated by anesthesia. On digital exam, she has grade 2hemorrhoids. We inserted the endoscope and advanced it to the cecum. The colon waswell prepped and well visualized and normal. The patient tolerated theprocedure without difficulty. POSTOPERATIVE DIAGNOSIS Hemorrhoidal disease, otherwise normal. PLAN High fiber diet with MiraLax supplementation. Amrik Patel M.D. DR/isabel TD: 06/15/2012 13:03 CC: Javad Farrar M.D. Authenticated by Amrik Patel MD On 06/16/2012 08:43:08 AM Historical Provider ENDOSCOPY PROCEDURES Monik l Result from Last 3 Months or Most Recently Relevant to Health Maintenance Insurance [facility] PPO [place] Advance Directives For more information, please contact: [phone] * Full Code (Latest Code Status on File) Date Activated Date Inactivated Comments 08/21/2022 12:56 PM 08/22/2022 5:43 PM Care Teams Dispute Resolution Specialist Relationship Specialty Start Date End Date Kevin Faustin PA [address] [place] [address] PCP - General 07/25/16 Rafat Riley MD [address] [facility] [address] [place] [address] Consulting Physician Neurosurgery 03/08/24
--- NOTE | 2024-05-07 13:20 | ECG_ITS ---
Test Date: 2024-05-07 13:35:59 Measurements Intervals [place] Rate: 50 P: 30 ID: [id number] QRS: 62 QRSD: 90 T: 44 QT: 437 QTc: 402 Interpretive Statements SINUS BRADYCARDIA WITH SINUS ARRHYTHMIA No previous ECG available for comparison Electronically Signed On 05-07-2024 14:48:44 WORKFORCE DEVELOPMENT ASSISTANT by Terry Cantrell M.D.
[2024-05-07 14:09] LABS: Mean Corpuscular HGB Conc 32.5 g/dl (32-36); Mean Corpuscular Hemoglobin 29.7 pg (26-34); Mean Corpuscular Volume 91.5 fl (80-100); Mean Platelet Volume 9.3 fl (7.4-10.4); Platelet Count Result 372 k/mm3 (150-375); Red Blood Count 4.37 M/mm3 (4.2-5.4); Red Cell Distribution Width 13.2 % (11.5-14.5); White Blood Count 9.2 K/mm3 (4.5-10.0)
[2024-05-07 14:14] LABS: Add Urine Microscopic? YES; Appearance Urine Clear (Clear); Bacteria Urine None Seen /hpf; Bilirubin Urine Negative (Negative); Blood Urine Negative (Negative); Color Urine Yellow (Yellow); Glucose Urine UA Negative (Negative); Ketones Urine Negative (Negative); Leukocyte Esterase Ur 1+ LEU/UL (Negative); Nitrate Urine Negative (Negative); Non Pathogenic Casts 0-2; Protein Urine Negative (Negative); RBC Urine 0-2 /hpf (0-2); Specific Grav Ur 1.009 (1.001-1.035); Squamous Epithelial Cell Urine None Seen /hpf (Few); WBC Urine 21-50 /hpf (0-3)
[2024-05-07 14:28] LABS: Anion Gap 12 mmol/L (4-12); Blood Urea Nitrogen 13 mg/dL (7-17); Carbon Dioxide 26 mmol/L (22-30); Chloride 100 mmol/L (98-107); Estimated Glomerular Filt Rate > 60; Glucose 110 mg/dL (65-110); Potassium 4.3 mmol/L (3.4-5.0); Sodium 138 mmol/L (137-145)
[2024-05-07 14:35] LABS: Prothrombin Time 13.3 Seconds (11.1-14.7)
[2024-05-07 14:37] LABS: Partial Thromboplastin Time 26.5 Seconds (22.3-36.8)
== END 2024-05-07 12:06 | disposition home or self-care (01) ==
LOC: ANHSURGERY 12:09
PROVIDERS: PCP Physician Assistant; Visit Provider Neurological Surgery
DX: M51.26 Other intervertebral disc displacement, lumbar region (principal); I10 Essential (primary) hypertension; Z01.818 Encounter for other preprocedural examination
CPT/HCPCS: 36415; 80048; 81001; 85027; 85610; 85730; 87077; 87086; 87186; 93005

== ENCOUNTER 2024-05-18 01:00 | Day surgery (SDC) | payer BC, SELFPAY ==
[2024-05-07 12:39] VITALS: BP 134/63; PULSE 51; RESP 16; TEMP 36.6; O2SAT 98; BMI 35.2
--- NOTE | 2024-05-07 13:02 | PC.NURSE ---
Report to the Outpatient Waiting Room, entrance under the green pavilion located off [facility], at time ___6:00AM____ on date __05/18/24 . Planned Procedure Time: ___7:30AM .? Time changes happen often and if your time is changed the preop area will call you the afternoon before. - You and your visitor will be asked to self-screen and do not enter if you have any COVID symptoms. Please call surgeon if you need to reschedule. - A mask is optional within the hospital at this time. Patients may have clear liquids (water, carbonated beverages, clear teas, apple juice) until 3 hours prior to surgery (4:30AM) with a maximum of 20 ounces. - No food from midnight until time of surgery and no smoking. This includes no chewing gum, candy or mints. Take only the following medications with a SIP of water on the morning of surgery: BUSPIRONE, ESCITALOPRAM,PREGABALIN. MAY TAKE ALBUTEROL INHALER, ALPRAZOLAM, ONDANSETRON & TRAMADOL NEEDED. DO NOT STOP ANY OF YOUR OTHER PRESCRIPTION MEDICATIONS PRIOR TO SURGERY EXCEPT THE FOLLOWING Medications to discontinue per physician ____HOLD MELOXICAM 7 DAYS PRE-OP PER DR HUERTA Date to take last dose 05/10/24 Please no make-up, nail portuguese, hairspray, perfume, deodorant, or body powder the day of surgery.? No jewelry (including any body piercings) or valuables the day of surgery, leave them at home.? Please take a shower or bath the night before, or the morning of, surgery with an antibacterial soap.? Wear comfortable, loose fitting clothing.? - Jewelry must be removed prior to entering the operating room.? Rings and piercings that are not removed may be cut off. - The hospital will not accept responsibility for valuables.? - Please leave all valuables, including medications, at home the day of surgery. If you are going home after surgery, a licensed vacuum truck driver must drive you home.? - NO public transportation without another adult if you receive anesthesia. - We recommend that an adult stay with you for 24 hours following discharge. - We also recommend that you do not drive, make important decision, drink alcoholic beverages, or take any drugs that were not prescribed by your health care provider for at least 24 hours after your discharge time. Hold all vitamins and supplements for 3 days per anesthesiologist. Follow any additional instructions given to you from your surgeon. Telephone instructions given to ____PATIENT and asked if any additional questions and then verbalized understanding. Patient advised to call surgeon office or pre surgery nurse liaison [phone] if any additional questions.
[2024-05-18] VITALS (9 sets, daily range): BP systolic 98–149; BP diastolic 50–82; PULSE 56–77; RESP 16–20; TEMP 36.2; O2SAT 97–100
--- NOTE | ~2024-05-18 | XR_ITS ---
EXAMINATION: XR fluoroscopy no charge DATE: 05/18/2024 10:07 INDICATION: Right L1-L2. Lumbar discectomy TECHNIQUE: 2 fluoroscopic images of the lumbar spine were obtained during procedure performed by Dr. Phillip. Radiologist was not present for the imaging or procedure. The amount of fluoroscopy time us ed during this procedure was 0.8 minutes. Total DAP was 0.784 mGym^2 COMPARISON: None. FINDINGS: Surgical instrumentation projects posterior to the lumbar spine. Severe lumbar spondylosis. IMPRESSION: 1. Fluoroscopy utilized during neurosurgical procedure at the lower lumbar spine. See procedure note for further detail. Reviewed, dictated and finalized at location A. TRIFIER OPERATOR IMPRESSION: 1. Fluoroscopy utilized during neurosurgical procedure at the lower lumbar spin e. See procedure note for further detail.
--- OUTSIDE RECORDS SUMMARY | 2024-05-18 01:02 | XMS_ITS | Referral Summary ---
Author Organization [facility] Address [address] [place] [address] Care Team Providers Care Lug Loader Name Role Phone Kevin Faustin Primary Care Provider [phone] Rafat Riley MD Unavailable [phone] Encounters Date Type Department Care Team Description 03/09/2024 Telephone [facility] Scheduling [address] [place] [address] Sandra Correia 03/09/2024 Orders Only [facility] Neurosurgery Center with [facility] Physicians [address] [facility] Medical Office Building [address] [place] [address] Rafat Riley MD Other chronic pain (Primary Dx); Low back pain, non-specific; Other osteoporosis without current pathological fracture; Neck pain; Balance problem; Smoking history 03/09/2024 Telephone [facility]surgery Center with [facility] Physicians [address] [place] [address] Medical Office Building [address] [place] [address] Samira Arreola MA 03/08/2024 8:36 AM MARKET RESEARCH ASSISTANT - 03/08/2024 11:59 PM MARKET RESEARCH ASSISTANT Hospital Encounter [facility] Imaging [address] [place] [address] Low back pain, non-specific Discharge Disposition: Discharge to home or self care 03/08/2024 8:36 AM MARKET RESEARCH ASSISTANT - 03/08/2024 11:59 PM MARKET RESEARCH ASSISTANT Hospital Encounter [facility] Imaging [address] [place], [place] [id number] Low back pain, non-specific Discharge Disposition: Discharge to home or self care 03/08/2024 9:00 AM MARKET RESEARCH ASSISTANT Office Visit [facility]surgery Center with [facility] Physicians [address] Medical Office Building [address] [place] [address] Rafat Riley MD Scoliosis of thoracolumbar spine, unspecified scoliosis type (Primary Dx); Smoking greater than 25 pack years 02/23/2024 Telephone [facility] Neurosurgery Center with [facility] Physicians [address] Medical Office Building [address] [place] [address] Samira Arreola MA 02/20/2024 5:10 PM MARKET RESEARCH ASSISTANT - 02/20/2024 11:59 PM MARKET RESEARCH ASSISTANT Hospital Encounter [facility] [address] [place] [address] Discharge Disposition: Discharge to home or self care 02/19/2024 Telephone [facility] Scheduling [address] [place] [address] Sandra Correia from Last 3 Months Allergies Active Allergy [...] week 08/22/2022 How often do you attend [facility] or adventist services? Never 08/22/2022 Do you belong to any clubs o r organizations such as mormon groups, unions, fraternal or athletic groups, or [...] staff should administer the PHQ-9) 0 08/22/2022 [facility] - Occupational Stress Questionnaire Answer Date Recorded [...] place to sleep or slept in a half-way (including now)? No 08/22/2022 Personal Safety Answer Date Recorded Have you ever been in or are you currently in a harmful physical or emotional relationship or is someone making you feel afraid or unsafe? Denies 02/05/2024 Comments No Sex and Gender Information Value Date Recorded Sex Assigned at Not on file Legal Sex Female 10:39 AM MARKET RESEARCH ASSISTANT Gender Identity Not on file Sexual Orientation Not on file Last Filed Vital Signs Vital Sign Reading Time Taken Comments Blood Pressure 158/54 03/08/2024 9:43 AM MARKET RESEARCH ASSISTANT Pulse 60 03/08/2024 9:43 AM MARKET RESEARCH ASSISTANT Temperature 36.6 C (97.8 F) 02/05/2024 9:19 AM CDT Respiratory Rate 18 02/05/2024 9:19 AM CDT Oxygen Saturation 99% 03/08/2024 9:43 AM MARKET RESEARCH ASSISTANT Inhaled Oxygen Concentration - - Weight 81.8 kg (180 lb 6.4 oz) 03/08/2024 9:43 A M MARKET RESEARCH ASSISTANT Height 154.9 cm (5' 1 ) 03/08/2024 9:43 AM MARKET RESEARCH ASSISTANT Body Mass Index 34.09 03/08/2024 9:43 AM MARKET RESEARCH ASSISTANT Plan of Treatment Not on file Procedures Procedure Name Priority Date/Time Associated Diagnosis Comments XR SCOLIOSIS AP LAT Schedule Routine, Read Routine (OP Routine) 03/08/2024 9:02 AM MARKET RESEARCH ASSISTANT Low back pain, non-specific XR LUMBAR SPINE AP LAT FLEX EX Schedule Routine, Read Routine (OP Routine) 03/08/2024 9:01 AM MARKET RESEARCH ASSISTANT Low back pain, non-specific NEURO MR OUTSIDE REFERENCE Routine 02/20/2024 5:10 PM MARKET RESEARCH ASSISTANT EGFR STAT 09/09/2023 9:13 AM CDT HEMOGLOBIN A1C Add-On 09/15/2020 10:16 AM CDT LIPID PANEL Routine 01/21/2020 10:49 AM CDT COLONOSCOPY 06/15/2012 12:00 AM CDT from Last 3 Months or Most Recently Relevant to Health Maintenance Results * XR Scoliosis Ap and Lateral (03/08/2024 9:02 AM MARKET RESEARCH ASSISTANT) Anatomical Region Laterality Modality Spine N/A Computed Radiogr aphy 03/08/2024 10:5 2 AM MARKET RESEARCH ASSISTANT Impressions 03/08/2024 10:52 AM MARKET RESEARCH ASSISTANT An outside lumbar spine MRI dated 02/11/2024 [...] Mateusz Mondragon M.D. Narrative 03/08/2024 10:52 AM MARKET RESEARCH ASSISTANT EXAMINATION: XR SPINE LUMBAR AP LAT FLEX [...] aorta. Electronically signed by: Mateusz Mondragon M.D. us Rafat Riley MD IMG XR PROCEDURES Final Re sult * XR Spine Lumbar Ap Lat Flex Ext min 4 Views (03/08/2024 9:01 AM MARKET RESEARCH ASSISTANT) Anatomical Region Laterality Modality L-spine N/A Computed Radiogr aphy 03/08/2024 10:5 2 AM MARKET RESEARCH ASSISTANT Impressions 03/08/2024 10:52 AM MARKET RESEARCH ASSISTANT An outside lumbar spine MRI dated 02/11/2024 [...] Mateusz Mondragon M.D. Narrative 03/08/2024 10:52 AM MARKET RESEARCH ASSISTANT EXAMINATION: XR SPINE LUMBAR AP LAT FLEX [...] aorta. Electronically signed by: Mateusz Mondragon M.D. us Rafat Riley MD IMG XR PROCEDURES Final Re sult * Neuro MR Outside Reference (02/20/2024 5:10 PM MARKET RESEARCH ASSISTANT) Impressions [facility] - 02/20/2024 5:10 PM MARKET RESEARCH ASSISTANT These images are for Reference purposes only and have not been reviewed by [facility] Radiology. There will be no report generated by a [facility] Radiologist. Narrative [facility] - 02/20/2024 5:10 PM MARKET RESEARCH ASSISTANT EXAMINATION: Images For Reference Purposes Only us Bennett Bowden MD IMG MRI PROCEDURES Final R esult [facility] * eGFR (09/09/2023 9:13 AM CDT) eGFR >90 >=60 mL/min/1. 73 m2 Comment: Interpretive Data Reference Interval Normal >/= 90 mL/min/1.73m2 Mildly decreased* 60 - 89 mL/min/1.73m2 Mildly to moderately decreased 45 - 59 mL/min/1.73m2 Moderately to severely decreased 30 - 44 mL/min/1.73m2 Severely decreased 15 - 29 mL/min/1.73m2 Kidney Failure < 15 mL/min/1.73m2 *Relative to young adult level Estimated glomerular filtration rate is determined by the 2020 CKD-EPI equation recommended by the National Kidney Foundation (A Unifying Approach to GFR Estimation: Recommendations of the NKF-ASK Task Force on Reassessing the Inclusion of Race in Diagnosing Kidney Disease, JASN 2020). The CKD-EPI equation should not be used for patients with unstable renal function and has not been validated in children and those over 70. Current interpretive data was last reviewed 2021. Blood 09/09/2023 9:13 AM CDT 09/09/2023 9:20 AM CDT us Devang Lucero MD LAB BLOOD ORDERABLE S Final Result [facility] ([place]) [address] [facility] [place] [address] * (ABNORMAL) Hemoglobin A1c (09/15/2020 10:16 AM CDT) Hgb A1C 9.2(H) 4.0 - 5.6 % [facility] ([place]) Estimated Average Glucose 217 mg/dL [facility]) Comment: The ADA recommends reporting an estimated Average Glucose (eAG) with all Hemoglobin A1c results using the equation derived from a study of 507 normal and diabetic adults. Minority populations were underrepresented and children were not included. (Diabetes Care 31:6983-2134, 2008). The eAG is not equivalent to a fasting glucose. Blood specimen (specimen) 09/15/2020 10:16 AM CDT 09/15/2020 10:58 AM CDT us Dot Good MD LAB BLOOD ORDERABLES Final Result [facility] ([place] [address] [facility] Department of Laboratories [place] [id number] * (ABNORMAL) Lipid panel (01/21/2020 10:49 AM CDT) Cholesterol 241(H) 30 - 199 mg/dL [facility] ([place]) Comment: Interpretive Data Ages < or = 19 years Acceptable: <170 mg/dL Borderline high: 170-199 mg/dL High: >or= 200 mg/dL Ages > or = 20 years Desirable: <200 mg/dL Borderline high: 200-239 mg/dL High: >or= 240 mg/dL Literature References: 1. Expert Panel on Integrated Guidelines for Cardiovascular Health and Risk Reduction in Children and Adolescents. Pediatrics 2011;128:S213 2. NCEP Expert Panel. Circulation 2004;110:227 Current Interpretive Data was last revised on 2017. Triglycerides 160(H) <=149 mg/dL [facility] ([place]) Comment: Interpretive Data Ages < or = 9 years Acceptable: <75 mg/dL Borderline high: 75-99 mg/dL High: >or= 100 mg/dL Ages 10 to 20 years Acceptable: <90 mg/dL Borderline high: 90-129 mg/dL High: >or= 130 mg/dL Ages > or = 20 years Desirable: <150 mg/dL Borderline high: 150-199 mg/dL High: 200-499 mg/dL Very high: >or= 499 mg/dL Literature References: 1. Expert Panel on Integrated Guidelines for Cardiovascular Health and Risk Reduction in Children and Adolescents. Pediatrics 2011;128:S213 2. NCEP Expert Panel. Circulation 2004;110:227 Current Interpretive Data was last revised on 2017. HDL 55 >=40 mg/dL [facility] ([place]) Comment: Interpretive Data Ages < or = 19 years Acceptable: >45 mg/dL Borderline low: 40-45 mg/dL Low: <40 mg/dL Ages > or = 20 years Desirable: >or= 60 mg/dL Low: <40 mg/dL Literature References: 1. Expert Panel on Integrated Guidelines for Cardiovascular Health and Risk Reduction in Children and Adolescents. Pediatrics 2011;128:S213 2. NCEP Expert Panel. Circulation 2004;110:227 Current Interpretive Data was last revised on 2017. LDL, calculated 154(H) <=129 mg/dL [facility] ([place]) Comment: Interpretive Data Ages < or = 19 years Acceptable: <110 mg/dL Borderline high: 110-129 mg/dL High: >or= 130 mg/dL Ages > or = 20 years Optimal: <100 mg/dL Near optimal: 100-129 mg/dL Borderline high: 130-159 mg/dL High: >160 mg/dL Literature References: 1. Expert Panel on Integrated Guidelines for Cardiovascular Health and Risk Reduction in Children and Adolescents. Pediatrics 2011;128:S213 2. NCEP Expert Panel. Circulation 2004;110:227 Current Interpretive Data was last revised on 2017. Non-HDL Cholesterol 186 mg/dL [facility] ([place]) Comment: Interpretive Data Ages < or = 19 years Acceptable: <120 mg/dL Borderline high: 120-144 mg/dL High: >145 mg/dL Ages > or = 20 years When triglycerides are >200 mg/dL, Non-HDL cholesterol is a secondary target of therapy with treatment goals that are 30 mg/dL greater than the LDL cholesterol target. Literature References: 1. Expert Panel on Integrated Guidelines for Cardiovascular Health and Risk Reduction in Children and Adolescents. Pediatrics 2011;128:S213 2. NCEP Expert Panel. Circulation 2004;110:227 Current Interpretive Data was last revised on 2017. Chol/HDL ratio 4 [facility] ([place]) Blood specimen (specimen) 01/21/2020 10:49 AM CDT 01/21/2020 10:58 AM CDT us Kevin CAMPOS LAB BLOOD ORDERABLES Final Re sult [facility] [address] [facility] [place] [address] * COLONOSCOPY (06/15/2012 12:00 AM CDT) Anatomical Region Laterality Modality Other Narrative 06/15/2012 12:00 AM CDT Ordered by an unspecified provider. Procedure Note Provider, MD Dalila - 06/15/2012 12:00 AM CDT PROCEDURE REPORT Patient: BETHANY MALHOTRA Account: [id number] Room No: : 1965 Patient Type: [facility] Attend.: Amrik Patel M.D. Admit Date: 06/15/2012 Dict.: Amrik Patel M.D. Disch. Date: 06/15/2012 NAME OF PROCEDURE: Colonoscopy HISTORY A 47-year-old female with a history of severe sudden onset of constipationand change in bowel function. PHYSICAL EXAMINATION Obese female. Lungs are clear. Cardiovascular examination wasunremarkable. PROCEDURE Colonoscopy was performed with the [employer] video endoscope. The patientwas premedicated by anesthesia. [...] Amrik Patel MD On 06/16/2012 08:43:08 AM us Historical Provider ENDOSCOPY PROCEDURES Monik l Result from Last 3 Months or Most Recently Relevant to Health Maintenance Insurance [facility] [id number] [place] [address] [facility] Advance Directives For more information, please contact: [phone] * Full Code (Latest Code Status on File) Date Activated Date Inactivated Comments 08/21/2022 12:56 PM 08/22/2022 5:43 PM Care Teams Lug Loader Relationship Specialty Start Date End Date Kevin Faustin PA [address] [place] [address] PCP - General 07/25/16 Rafat Riley MD [address] [address] Consulting Physician Neurosurgery 03/08/24
--- OUTSIDE RECORDS SUMMARY | 2024-05-18 01:02 | XMS_ITS | Patient Health Record ---
Author Organization [facility] Address [address] [facility] [address] [place] [address] Care Team Providers Care Mine Inspector Name Role Phone Amparo Mathew Unavailable [phone] Allergies No Known Allergies Reason For Referral No Information Medications Medication SIG (Take, Route, Frequency, Duration) Notes Start Date End Date Status Meloxicam 15 MG take 1 tablet (15 mg) by oral route once daily for 30 days Oral 1 for 30 11/17/2017 Active Lisinopril 20 MG Oral Act [place] Diclofenac Sodium oral *Pick strength-form from [employer] for eRX* Active tiZANidine HCl 4 MG take 1 tablet (4 mg) by oral route every 8 hours as needed not to exceed 3 doses in 24 hours for 30 days Oral 3 for 30 Active Plan Of Treatment No Information Insurance Providers Payer Name Payer Address Payer Phone Subscriber Number Group Number Insured Name Patient Relationship to Insured Coverage Start Date Coverage End Date Manuel Garcia [address] [place] [address] [id number] Bethany Malhotra Self - patient is the insured Manuel Garcia [address] [place] [address] [id number] Bethany Malhotra Self - patient is the insured DO NOT USE [id number] Bethany Malhotra Self - patient is the insured Medical (General) History Surgical History Surgery Date(Month/Year) C section; 2017-11-08 Hysterectomy; 2017-11-08 Appendectomy; 2017-11-08
--- OUTSIDE RECORDS SUMMARY | 2024-05-18 01:02 | XMS_ITS ---
Author Organization [facility] Address [address] [facility] [address], [place] [address] Care Team Providers Care Epitaxial Reactor Technician Name Role Phone Amparo Mathew Unavailable [phone] zzzzMigration, zzzzProvider Unavailable Unav ailable Allergies No Known Allergies [place]ASON [place] [place] Medication SIG (Take, Route, Frequency, Duration) Notes Start Date End Date Status Meloxicam 15 MG take 1 tablet (15 mg) by oral route once daily for 30 days Oral 1 for 30 11/17/2017 Active Lisinopril 20 MG Oral Act [place] Diclofenac Sodium oral *Pick strength-form from [employer] for eRX* Active tiZANidine HCl 4 MG take 1 tablet (4 mg) by oral route every 8 hours as needed not to exceed 3 doses in 24 hours for 30 days Oral 3 for 30 Active Encounters Encounter Location Date Provider Diagnosis [facility] [address] [facility] [address], [place] [address] 01/26/2023 zzzzProvider zzzzMigration Plan Of Treatment No Information Progress Notes * Bethany MALHOTRADOB: 7 (59 yo F)Acc No.[id number]:01/26/2023 Patient: Bethany DAIGLE :1965 A ge:57 Y S ex:Female Address:[address] [place] [id number] Subjective: * Chief Complaints: * E MR-Catracho * Medical History: * Surgical History: H ysterectomy; 2017-11-08C section; [id number]; 2017-11-08 * Hospitalization/Major Diagno stic Procedure: * Family History: M igrated Family History: Diabetes , Hypertension , Myocardial Infarction . * Social History: M igrated Social History: M igrated Social History: :: Current every day smoker. * Medications: T akingLisinopril 20 MG Tablet Oral Meloxicam 15 MG Tablet take 1 tablet (15 mg) by oral route once daily for 30 days Oral 1 Diclofenac Sodium oral , Notes to Pharmacist: *Pick strength-form from [employer] for eRX*tiZANidine HCl 4 MG Tablet take 1 tablet (4 mg) by oral route every 8 hours as needed not to exceed 3 doses in 24 hours for 30 days Oral 3 Taking Lisinopril 20 MG Tablet Oral Taking Meloxicam 15 MG Tablet take 1 tablet (15 mg) by oral route once daily for 30 days Oral 1 Taking Diclofenac Sodium oral , Notes to Pharmacist: *Pick strength-form from [employer] for eRX*Taking tiZANidine HCl 4 MG Tablet take 1 tablet (4 mg) by oral route every 8 hours as needed not to exceed 3 doses in 24 hours for 30 days Oral 3 * Allergies: N .K.D.A.no[Allergies Verified] Objective: * Vitals: * Physical Examination: Assessment: Plan: * Treatment: * Procedure Codes: * * Date:
--- OUTSIDE RECORDS SUMMARY | 2024-05-18 01:03 | XMS_ITS | Clinical Summary ---
Author Organization [facility] Address [address] [place] [address] Phone Care Team Providers Care Heel Builder Name Role Phone Kevin Faustin Primary Care Provider [phone] Allergies No known active allergies Medications HYDROcodone-matteo [...] 82 06/28/2020 6:30 PM CDT Temperature 37.1 C (98.7 F) 06/28/2020 5:28 PM CDT Respiratory Rate 23 06/28/2020 5:28 PM CDT [...] complete this topic Insurance [employer] Care Teams Heel Builder Relationship Specialty Start Date End Date Kevin Faustin, PAC [address] [place] [address] PCP - General Physician Curriculum Director 09/21/18
--- OUTSIDE RECORDS SUMMARY | 2024-05-18 01:03 | XMS_ITS | Clinical Summary ---
Author Organization [facility] Address [address] [place] [address] Care Team Providers Care Claim Taker Name Role Phone Kevin Faustin Primary Care Provider [phone] Rafat Riley MD Unavailable [phone] Allergies Active Allergy Reactions Criticality Noted Date [...] Type Department Care Team Description 03/09/2024 Telephone [facility] Scheduling [address] [place] [address] Sandra Correia 03/09/2024 Orders Only [facility] Neurosurgery [place] with [facility] [address] Medical Office [address] [place] [address] Rafat Riley MD Other chronic pain (Primary Dx); Low back pain, non-specific; Other osteoporosis without current pathological fracture; Neck pain; Balance problem; Smoking history 03/09/2024 Telephone [facility] Neurosurgery [facility] with [facility] [address] Medical Office Building [address] [place] [address] Samira Arreola MA 03/08/2024 9:00 AM ELECTION JUDGE Office Visit [facility] Neurosurgery Center with [facility] [address] Medical Office [address] [place] [address] Rafat Riley MD Scoliosis of thoracolumbar spine, unspecified scoliosis type (Primary Dx); Smoking greater than 25 pack years 03/08/2024 8:36 AM ELECTION JUDGE - 03/08/2024 11:59 PM ELECTION JUDGE Hospital Encounter [facility] [address] [place] [address] Low back pain, non-specific Discharge Disposition: Discharge to home or self care 03/08/2024 8:36 AM ELECTION JUDGE - 03/08/2024 11:59 PM ELECTION JUDGE Hospital Encounter [facility] [address] [place] [address] Low back pain, non-specific Discharge Disposition: Discharge to home or self care 02/23/2024 Telephone [facility] Neurosurgery Center with [facility] [address] Medical Office Building [address] [facility] [place] [address] Samira Arreola MA 02/20/2024 5:10 PM ELECTION JUDGE - 02/20/2024 11:59 PM ELECTION JUDGE Hospital Encounter [facility] [address] [place] [address] Discharge Disposition: Discharge to home or self care 02/19/2024 Telephone [facility] Scheduling [address] [place] [address] Sandra Correia from Last 3 Months Immunizations Name Administration Dates Next Due Influenza, Trivalent, IM (DESTINY) 01/06/2012 Surgical History Surgery Date Site/Laterality Comments [...] often do you attend chur ch or mormon services? Never 08/22/2022 Do you belong to any clubs o r organizations such as yazidism groups, unions, fraternal or athletic groups, or [...] the PHQ-9) 0 08/22/2022 [facility] - Occupational Stress [...] place to sleep or slept in a halfway (including now)? No 08/22/2022 Personal Safety Answer Date Recorded Have you ever been in or are you currently in a harmful physical or emotional relationship or is someone making you feel afraid or unsafe? Denies 02/05/2024 Comments No Sex and Gender Information Value Date Recorded Sex Assigned at Not on file Legal Sex Female 10:39 AM ELECTION JUDGE Gender Identity Not on file Sexual Orientation Not on file Obstetrics History Last Filed Vital Signs Vital Sign Reading Time Taken Comments Blood Pressure 158/54 03/08/2024 9:43 AM ELECTION JUDGE Pulse 60 03/08/2024 9:43 AM ELECTION JUDGE Temperature 36.6 C (97.8 F) 02/05/2024 9:19 AM CDT Respiratory Rate 18 02/05/2024 9:19 AM CDT Oxygen Saturation 99% 03/08/2024 9:43 AM ELECTION JUDGE Inhaled Oxygen Concentration - - Weight 81.8 kg (180 lb 6.4 oz) 03/08/2024 9:43 A M ELECTION JUDGE Height 154.9 cm (5' 1 ) 03/08/2024 9:43 AM ELECTION JUDGE Body Mass Index 34.09 03/08/2024 9:43 AM ELECTION JUDGE Plan of Treatment Health Maintenance Due Date [...] 01/20/2021 01/21/2020, 07/03/2017 Hemoglobin A1C 03/17/2021 09/15/2020, 03/2 06/2020, 09/12/2017 Colon Cancer Screening-Colonoscopy 06/15/2022 06/15/2012 Depression Screening 08/22/2023 08/21/2022, 08/22/19 23 Covid-19 Vaccine ( - 2023-2 5 season) 2023 02/15/2021, 07/26/2020, 06/07/2020 Influenza Vaccine (#1) 2023 2, 01/30/2021, 01/20/2013, Additional history exists eGFR 09/08/2024 09/09/2023, 08/0 09/2022, 08/22/2022, Additional history exists Colon Cancer Screening-CT Colonography Discontinued 06/15/2012 Colon Cancer Screening-DNA Stool Discontinued 06/16/19 13 Colon Cancer Screening-FIT Discontinued 06/15/2012 Colon Cancer Screening-Sigmoidoscopy Discontinued 06/15/2012 Procedures Procedure Name Priority Date/Time Associated Diagnosis Comments XR SCOLIOSIS AP LAT Schedule Routine, Read Routine (OP Routine) 03/08/2024 9:02 AM ELECTION JUDGE Low back pain, non-specific XR LUMBAR SPINE AP LAT FLEX EX Schedule Routine, Read Routine (OP Routine) 03/08/2024 9:01 AM ELECTION JUDGE Low back pain, non-specific NEURO MR OUTSIDE REFERENCE Routine 02/20/2024 5:10 PM ELECTION JUDGE EGFR STAT 09/09/2023 9:13 AM CDT HEMOGLOBIN A1C Add-On 09/15/2020 10:16 AM CDT LIPID PANEL Routine 01/21/2020 10:49 AM CDT COLONOSCOPY 06/15/2012 12:00 AM CDT from Last 3 Months or Most Recently Relevant to Health Maintenance Results * XR Scoliosis Ap and Lateral (03/08/2024 9:02 AM ELECTION JUDGE) Anatomical Region Laterality Modality Spine N/A Computed Radiogr aphy 03/08/2024 10:5 2 AM ELECTION JUDGE Impressions 03/08/2024 10:52 AM ELECTION JUDGE An outside lumbar spine MRI dated 02/11/2024 [...] Mateusz Mondragon M.D. Narrative 03/08/2024 10:52 AM ELECTION JUDGE EXAMINATION: XR SPINE LUMBAR AP LAT FLEX [...] Mateusz Mondragon M.D. us Rafat Riley MD IM XR PROCEDURES Final Re sult * XR Spine Lumbar Ap Lat Flex Ext min 4 Views (03/08/2024 9:01 AM ELECTION JUDGE) Anatomical Region Laterality Modality L-spine N/A Computed Radiogr aphy 03/08/2024 10:5 2 AM ELECTION JUDGE Impressions 03/08/2024 10:52 AM ELECTION JUDGE An outside lumbar spine MRI dated 02/11/2024 [...] Mateusz Mondragon M.D. Narrative 03/08/2024 10:52 AM ELECTION JUDGE EXAMINATION: XR SPINE LUMBAR AP LAT FLEX [...] Neuro MR Outside Reference (02/20/2024 5:10 PM ELECTION JUDGE) Impressions [facility] - 02/20/2024 5:10 PM ELECTION JUDGE These images are for Reference purposes only and have not been reviewed by [facility] Radiology. There will be no report generated by a [facility] Radiologist. Narrative [facility] - 02/20/2024 5:10 PM ELECTION JUDGE EXAMINATION: Images For Reference Purposes Only us [...] BLOOD ORDERABLE S Final Result [facility] ([facility]) [address] [facility] [place] [address] * (ABNORMAL) Hemoglobin A1c (09/15/2020 10:16 AM [...] and children were not included. (Diabetes Care 31:[id number], 2008). The eAG is not equivalent to a fasting glucose. Blood specimen (specimen) 09/15/2020 10:16 AM CDT 09/15/2020 10:58 AM CDT us Dot Good MD LAB BLOOD ORDERABLES Final Result [facility] ([facility]) 1 [facility] [place] [address] * (ABNORMAL) Lipid panel (01/21/2020 10:49 AM [...] on 2017. Non-HDL Cholesterol 186 mg/dL [facility] ([facility]) Comment: Interpretive Data Ages < or [...] on 2017. Chol/HDL ratio 4 [facility] ([place]) Blood specimen (specimen) 01/21/2020 10:49 AM CDT 01/21/2020 10:58 AM CDT us Kevin CAMPOS LAB BLOOD ORDERABLES Final Re sult [facility] ([place]) 1 [facility] [place] [address] * COLONOSCOPY (06/15/2012 12:00 AM CDT) Anatomical Region Laterality Modality Other Narrative 06/15/2012 12:00 AM CDT Ordered by an unspecified provider. Procedure Note ProviderDalila MD - 06/15/2012 12:00 AM CDT PROCEDURE REPORT Patient: BETHANY PIEDRA Account: [id number] Room No: : 1965 Patient Type: SDS Attend.: Amrik Patel M.D. Admit Date: 06/15/2012 Dict.: Amrik Patel M.D. Disch. Date: 06/15/2012 NAME OF PROCEDURE: Colonoscopy HISTORY A 47-year-old female with a history of severe sudden onset of constipationand change in bowel function. PHYSICAL EXAMINATION Obese female. Lungs are clear. Cardiovascular examination wasunremarkable. PROCEDURE Colonoscopy was performed with the OYE! video endoscope. The patientwas premedicated by anesthesia. [...] Most Recently Relevant to Health Maintenance Insurance [facility] Advance Directives For more information, please contact: [phone] * Full Code (Latest Code Status on File) Date Activated Date Inactivated Comments 08/21/2022 12:56 PM 08/22/2022 5:43 PM Care Teams Claim Taker Relationship Specialty Start Date End Date Kevin Faustin PA [address] [place] [address] PCP - General 07/25/16 Rafat Riley MD [address] [address] Consulting Physician Neurosurgery 03/08/24
--- OUTSIDE RECORDS SUMMARY | 2024-05-18 01:03 | XMS_ITS ---
Author Organization [facility] Address [address] [facility] [address] [place] [address] Care Team Providers Care Specimen Preparation Assistant Name Role Phone Amparo Mathew Unavailable [phone] zzzzMigration, zzzzProvider Unavailable Unav ailable REASON FOR VISIT EMR-Catracho Encounters Encounter Location Date Provider Diagnosis [facility] [address] [facility] [address] [place] [address] 01/25/2023 zzzzProvider zzzzMigration Plan Of Treatment No Information Progress Notes * Bethany MALHOTRADOB: 7 (59 yo F)Acc No.[id number]:01/25/2023 Patient: Bethany DAIGLE :1965 A ge:57 Y S ex:Female Address:[address] [place] [address] Subjective: * Chief Complaints: * E MR-Catracho * Medical History: * Surgical History: * Hospitalization/Major Diagno stic Procedure: * Medications: Objective: * Vitals: * Physical Examination: Assessment: Plan: * Treatment: * Procedure Codes: * * Date:
--- OUTSIDE RECORDS SUMMARY | 2024-05-18 01:03 | XMS_ITS | Continuity of Care Document ---
Author Organization [facility] Address [address] [place] [address] Phone Care Team Providers Care Cutter Machine Name Role Phone Hector Bowles MD Unavailable Unavailable Procedures Procedure Date Work/medical disability examination BRANNON Work/medical disability examination BRANNON Advance Directives Directive Yes / No Effective Date File Name No Information Encounters Encounter Description Practice Location Reason(s) For Visit Diagnoses Date Provider Providers Copied on Encounter Work/medical disability examination BRANNON [facility], [address], [place], [place], [id number], [place] tel:[phone] [facility] No Information 9 Jelena Young. [address] [facility], [facility] [address], [place], [place], [id number] , [place]. tel: [phone] Family History Family Member Type Diagnosis Age At Onset No Information Payers Payer name Insurance type Covered democrat ID Authoriza tion(s) No Information Social History [...]
[2024-05-18] MEDS: LACTATED RINGERS 1,000 ML 30 ML IV CONT ×2 (07:05→09:51)
--- NOTE | 2024-05-18 07:20 | P.PNAN_ITS ---
Anes - Initial Pre Proc Eval Procedure: Operation Date: 05/18/24 07:30 Proposed Procedures p Right L1-L2 Micro Lumbar Discectomy - Feng Phillip MD Date/Time: 05/18/24 07:20 Surgeon: Feng Phillip MD Pre Op Diagnosis: herniated nucleous pulposis Patient Data Age: 59 Gender: F Height: 1.52 m Weight: 81 kg Last Vital Signs Temp 97.9 F 05/07/24 12:39 Pulse 51 L 05/07/24 12:39 Resp 16 05/07/24 12:39 BP 134/63 05/07/24 12:39 Pulse Ox 98 05/07/24 12:39 O2 Del Method Room Air 05/07/24 12:39 Allergies Allergy/AdvReac Type Severity Reaction Status Date / Time codeine AdvReac ABD PAIN Verified 05/18/24 06:54 [facility] ([facility] AdvReac Nausea, Verified 05/18/24 06:54 DIARRHEA Home Medications ?Medication ?Instructions ?Recorded ?Confirmed ?Type meloxicam 15 mg tablet 15 mg PO DAILY 09/21/20 05/18/24 History tizanidine 4 mg tablet 6 mg PO TID PRN muscle spasticity 09/21/20 05/18/24 History alprazolam 0.5 mg tablet 0.5 mg PO TID PRN anxiety 10/17/22 05/18/24 History lisinopril 40 mg tablet 40 mg PO DAILY 10/17/22 05/07/24 History pregabalin 150 mg capsule 150 mg PO BID 10/17/22 05/18/24 History albuterol sulfate 90 mcg/actuation 1 inh inhalation Q6-8H PRN 11/28/22 05/18/24 History aerosol inhaler shortness of breath or wheezing acetaminophen 500 mg tablet 1,000 mg PO Q6H PRN pain 05/07/24 05/18/24 History (Acetaminophen Extra Strength) buspirone 10 mg tablet 10 mg PO BID 05/07/24 05/18/24 History dicyclomine 20 mg tablet 20 mg PO QID 05/07/24 05/18/24 History escitalopram oxalate 10 mg tablet 10 mg PO QAM 05/07/24 05/18/24 History famotidine 20 mg tablet (Acid 20 mg PO DAILY 05/07/24 05/18/24 History Controller) ondansetron 8 mg disintegrating 8 mg PO Q8-12H PRN nausea and 05/07/24 05/07/24 History tablet vomiting tramadol 50 mg tablet 100 mg PO Q8H PRN pain 05/07/24 05/18/24 History sulfamethoxazole 800 tablet 05/18/24 History mg-trimethoprim 160 mg tablet Patient hx anesthesia problems: none Family hx anesthesia problems: none Results Review: All pre-operative results and documents have been reviewed as part of the pre- operative evaluation. [facility] Past Medical History Medical History Arthritis Anxiety COPD (chronic obstructive pulmonary disease) Diabetes Hypertension Surgical History Surgical History History of hysterectomy History of cholecystectomy History of tonsillectomy Family History Family History Sibling Cancer Heart problem Mother Diabetes mellitus Hypertension Depression Anxiety Father Hypertension Diabetes mellitus Depression Anxiety Heart problem Sibling Hypertension Depression Anxiety Daughter Anxiety Depression Grandparent Cerebrovascular accident Social History Social History Social History: Bethany is very confident in filling out medical forms and has not received assistance in the last 12 months from an organization/program. She has had 3 pregnancies, 1 ended in miscarriage. Date of last menses was 09/15/2013. Performs self breast exams weekly. Had a colonoscopy on 06/16/2019. She drinks 6 cups of coffee/day. Smoking packs per day: 1 Smoking cigarettes per day: 20.0 Years smoked: 45 Smoking pack-years: 45.00 Smoking status: Current every day smoker Tobacco type: cigarettes Additional smoking assessment comments: CUTTING BACK ON CIGARETTES FOR SURGERY, ~ 5 CIG/DAY Alcohol intake: current Alcohol use details: SOCIAL DRINKER IN PAST, NO ALCOHOL NOW Substance use: current Substance use type: marijuana Do You Feel Safe in your Home?: Yes Lack of Transportation: No Lack of Food: Never True Current Housing: I Have Housing Concerned About Future Housing: No Difficulty Paying Gas/Electric Bills: YES Difficulty Paying for Meds: YES Currently Unemployed: No Education: High School Diploma/GED Difficulty w/ Childcare or Family Care: No Living arrangements: alone Occupation/Education: occupation Additional occupation/education comments: [employer] Gender identity (if verbalized by the patient): Female Sexual Orientation (if Verbalized by the Patient): Straight or Heterosexual Spiritual care concerns: No Agree to blood products: Yes Anes - Eval Final PreProcedure Day of Procedure 05/18/24 07:20 Patient weight: obese Lungs: normal air movement Airway: Mallampati scale and special considerations (Missing many teeth on top, only 4 intact. ) Neurological: alert and oriented Last oral intake: >/= 8 hours ASA classification: III Emergent: no Anesthetic plan: proceed Anesthesia type and monitoring: general ETT and standard monitoring Results Review: All pre-operative results and documents have been reviewed as part of the pre- operative evaluation. HTN, COPD w active smoking and did smoke 5 cigs/today. DM but not treated anymore since 80 pound wt loss. EKG w SB . Informed Consent: The patient's anesthetic plan and its attendant risks and benefits were discussed with the patient/family/POA. Questions were solicited and answers provided to the satisfaction of the patient/family/POA.
--- NOTE | 2024-05-18 07:47 | P.HP_ITS ---
H&P: HPI History of Present Illness Date/Time: 05/18/24 07:47 Chief Complaint: back and leg pain Narrative: Bethany is a 59-year-old female who is known to me for problems related to her back and underwent a right L3-4 far lateral foraminotomy and microdiskectomy on 12/03/2022. She did well after that operation for about a year. In January or February last year she started to experience similar discomfort radiating into her right lower extremity. It is somewhat different is distribution and intensity, being worse than what she had before. She reports difficulty walking because of balance and or strength. She may have weakness in the right leg but she has difficulty characterizing. She has numbness in the anteromedial thigh extending down not quite to the knee. She does not report any bowel or bladder difficulty. She was referred to a surgeon at [facility] who recommended apparently a thoracolumbar fusion over 2 days. Review of Systems Review of Systems: All systems reviewed & are unremarkable except as noted in HPI and below Denies chills, Denies fever, Denies weight gain and Denies weight loss Eyes Denies change in vision and Denies diplopia ENT Denies disequilibrium Card Denies chest pain and Denies dyspnea Resp Denies cough and Denies dyspnea GI Denies abdominal pain, Denies change in bowel habits, Denies fecal incontinence and Denies vomiting Denies hematuria, Denies oliguria, Denies difficulty urinating, Denies dysuria, Denies urinary frequency, Denies urinary hesitancy, Denies urinary incontinence and Denies urinary urgency Musc Reports as per HPI Skin/ Breast Reports system reviewed and no additional complaints, except as documented Neuro Reports as per HPI Psych Reports no additional complaints, Denies depression and Denies hopelessness Endo Reports no additional complaints and Denies polyuria Sujit/ Lymph Reports no additional complaints Aller/ Immun Reports no additional complaints PMFSH Past Medical History Medical History Arthritis Anxiety COPD (chronic obstructive pulmonary disease) Diabetes Hypertension Surgical History Surgical History History of hysterectomy History of cholecystectomy History of tonsillectomy Family History Family History Sibling Cancer Heart problem Mother Diabetes mellitus Hypertension Depression Anxiety Father Hypertension Diabetes mellitus Depression Anxiety Heart problem Sibling Hypertension Depression Anxiety Daughter Anxiety Depression Grandparent Cerebrovascular accident Social History Social History Social History: Bethany is very confident in filling out medical forms and has not received assistance in the last 12 months from an organization/program. She has had 3 pregnancies, 1 ended in miscarriage. Date of last menses was 09/15/2013. Performs self breast exams weekly. Had a colonoscopy on 06/16/2019. She drinks 6 cups of coffee/day. Smoking packs per day: 1 Smoking cigarettes per day: 20.0 Years smoked: 45 Smoking pack-years: 45.00 Smoking status: Current every day smoker Tobacco type: cigarettes Additional smoking assessment comments: CUTTING BACK ON CIGARETTES FOR SURGERY, ~ 5 CIG/DAY Alcohol intake: current Alcohol use details: SOCIAL DRINKER IN PAST, NO ALCOHOL NOW Substance use: current Substance use type: marijuana Do You Feel Safe in your Home?: Yes Lack of Transportation: No Lack of Food: Never True Current Housing: I Have Housing Concerned About Future Housing: No Difficulty Paying Gas/Electric Bills: YES Difficulty Paying for Meds: YES Currently Unemployed: No Education: High School Diploma/GED Difficulty w/ Childcare or Family Care: No Living arrangements: alone Occupation/Education: occupation Additional occupation/education comments: [employer] Gender identity (if verbalized by the patient): Female Sexual Orientation (if Verbalized by the Patient): Straight or Heterosexual Spiritual care concerns: No Agree to blood products: Yes Meds Home Medications and Allergies Home Medications ?Medication ?Instructions ?Recorded ?Confirmed ?Type meloxicam 15 mg tablet 15 mg PO DAILY 09/21/20 05/18/24 History tizanidine 4 mg tablet 6 mg PO TID PRN muscle spasticity 09/21/20 05/18/24 History alprazolam 0.5 mg tablet 0.5 mg PO TID PRN anxiety 10/17/22 05/18/24 History lisinopril 40 mg tablet 40 mg PO DAILY 10/17/22 05/07/24 History pregabalin 150 mg capsule 150 mg PO BID 10/17/22 05/18/24 History albuterol sulfate 90 mcg/actuation 1 inh inhalation Q6-8H PRN 11/28/22 05/18/24 History aerosol inhaler shortness of breath or wheezing acetaminophen 500 mg tablet 1,000 mg PO Q6H PRN pain 05/07/24 05/18/24 History (Acetaminophen Extra Strength) buspirone 10 mg tablet 10 mg PO BID 05/07/24 05/18/24 History dicyclomine 20 mg tablet 20 mg PO QID 05/07/24 05/18/24 History escitalopram oxalate 10 mg tablet 10 mg PO QAM 05/07/24 05/18/24 History famotidine 20 mg tablet (Acid 20 mg PO DAILY 05/07/24 05/18/24 History Controller) ondansetron 8 mg disintegrating 8 mg PO Q8-12H PRN nausea and 05/07/24 05/07/24 History tablet vomiting tramadol 50 mg tablet 100 mg PO Q8H PRN pain 05/07/24 05/18/24 History sulfamethoxazole 800 tablet 05/18/24 History mg-trimethoprim 160 mg tablet Allergies Allergy/AdvReac Type Severity Reaction Status Date / Time codeine AdvReac ABD PAIN Verified 05/18/24 06:54 levofloxacin (From Levaquin) AdvReac Nausea, Verified 05/18/24 06:54 DIARRHEA Exam Narrative: Other: General: cooperative, no acute distress, well developed, alert and awake Orientation/Consciousness: oriented to person, oriented to place and oriented to time Constitutional Limitations: no limitations Other: The patient is a normally developed, normal appearing male sitting on the examination table in no acute distress. He is awake, alert, and oriented x3 with good fund of knowledge, recall of events, and fluent speech. [facility] Head: normocephalic and atraumatic Ears: external ears normal Face/Nose/Sinus: Normal external nose present Eyes Eyelids: eyelids normal Pupils: Yes Pupils normal by confrontation EOM: EOMs intact bilaterally Neck General: Yes no meningeal signs, Yes supple and Yes no JVD Resp Effort/Inspection: normal respiratory effort and able to speak in complete sentences Cardio Rate: Yes regular rate GI Inspection: No abdominal distension Musc Other: Examination of the back reveals no tenderness. Range of motion of the back is limited with pain in forward flexion, extension, and lateral rotation to both sides. Straight leg raise is negative bilaterally. Drake?s test is negative bilaterally. Skin General: normal color Neuro General: Yes oriented to person, Yes oriented to place, Yes oriented to time, Yes normal cognition and Yes no meningeal signs Cranial Nerves: Yes CN's II-XII intact bilaterally Other: Motor: Strength is normal, 5/5, throughout all muscle groups of the bilateral and lower extremities to direct confrontation With the exception of hip extension on the right which was 3 to 4/5. Sensory: Sensation is Decreased to light touch in the anteromedial thigh on the right. Reflexes: deep tendon reflexes normal symmetric at the knees and ankles bilaterally. There was no clonus.. Gait: Gait, station, and transfers are independent and steady for short periods of time and over short distances. Psych Appearance: grossly normal Mental status: Yes mental status grossly normal Mood: congruent mood Affect: Yes normal affect Speech/Movement: Normal speech and movement present Attitude: Yes cooperative Thought Content: Normal thought content present Review studies: MRI of the lumbar spine was personally reviewed by me and demonstrates a persistent lumbar scoliosis with degeneration of the discs at L3-4, L4-5 and L5- S1 with there is also significant spondylosis and grade 1 spondylolisthesis at L3-4 L4-5. There is a new appearing caudally migrated disc herniation at L1-2 which is substantial and compresses the traversing L2 Assessment and Plan Assessment and plan (1) Lumbar disc herniation: Code(s): M51.26 - Other intervertebral disc displacement, lumbar region Status: Acute Plan Bethany is a 59-year-old female with a fairly complicated back but with pain that is likely related to a new disc herniation at L1-2 causing L2 radiculopathy on the right side. I recommended as a 1st step to deal with the disc herniation alone by way of microdiskectomy at L1-2. Given her age and the specific abnormalities in her back and the natural history thus far it is likely we will need to do more in the future, perhaps using multiple levels of her lumbar spine or even up into her thoracic spine. She agrees with this approach for now as we can get it done quickly and she has what I believe his neurologic weakness in her right lower extremity. I therefore described to her and L1-2 microdiskectomy, its risks, potential benefits, the operative and postoperative course in detail and answered all her questions personally. This would be on the right. we discussed risks including but not limited to permanent neurologic deficit secondary to nerve root injury, need for reoperation secondary to infection, bleeding, CSF leak, adjacent level disease, recurrent residual pathology pain, medical complications related anesthesia or surgery, etc.. She indicates understanding and elects to proceed with that operation.
--- NOTE | 2024-05-18 07:49 | WPDHPUPDATE1 ---
History and Physical Update Update Date/Time: 05/18/24 07:49 History and Physical has been reviewed, including an updated exam of the patient. There are NO changes in the patient's condition. Risks, benefits, and alternatives have been discussed and questions answered. Patient agrees to proceed with procedure.
--- NOTE | 2024-05-18 08:10 | SUR.PREOP ---
0745-Dr. Phillip aware and examined mid back scab from fell asleep with heating pad on and got a burn . States will proceed.
[2024-05-18] MEDS: ceFAZolin 2 GM/D5W 50 ML 2 GM/50 ML BAG IVPB (08:15)
[2024-05-18] MEDS: LIDO 1%/EPINEPHRINE 1:100,000 20 ML VIAL 10 ML INFILTRATE (08:33)
[2024-05-18] MEDS: fentaNYL CITRATE INJ (*CRX) 100 MCG/2 ML VIAL 25 MCG IV PUSH ×8 (10:01→11:42)
[2024-05-18] MEDS: oxyCODONE HCL (*CRX) 5 MG TAB IR PO (10:50)
--- NOTE | 2024-05-19 08:25 | W.PM.PROC2 ---
Procedure Note - Detailed Date of Procedure 05/18/24 Pre-op Diagnosis herniated nucleous pulposis Post-op Diagnosis Same Procedure Performed Right L1-2 microscopic lumbar diskectomy Surgeon Feng Phillip MD Anesthesia General Description of Procedure the patient was brought to the operating room in the supine position, was sedated, intubated and placed under general anesthesia in routine fashion. She was then turned into the prone position on a Wilbert frame. The area operation on her back was examined, marked our incision, prepped and draped in routine sterile fashion. Incision was marked over the L1 and L2 spinous processes in the midline. This area was injected with 0.5% lidocaine with 1 200,000 epinephrine. Intravenous antibiotics given prior to incision. Incision was made with a 10 blade scalpel down to the lumbodorsal fascia. A subperiosteal dissection of the muscle and soft tissue away from spinous process and lamina at L1-2 on the right was performed with a subperiosteal elevator and Bovie cautery. A verifying x-rays obtained to verify level of operation. A Midas Sanket drill was used to perform a hemilaminectomy and medial facetectomy on the right at L1-2. Under microscopy the yellow ligament was lifted and removed piecemeal using Kerrison punches. Plane was dissected in the lateral epidural space down to the ventral epidural space. The ventral epidural space was explored. It was necessary to remove additional bone inferiorly as the fragment was caudally migrated. The fragment was found underneath the nerve root. An Deepali curette, curved curette, Morris rongeur and nerve hook were used to pull free and removed fragments of herniated disc from beneath the nerve. This was done until a [place] could be placed above and below the nerve and in the ventral epidural space to confirm lack of compression. The wound was then copiously irrigated with bacitracin irrigation all bleeding stopped with bipolar and Bovie cautery and Gelfoam thrombin powder. The wound was then closed in layered fashion with 2-0 Vicryl interrupted sutures in the lumbodorsal fascia and Cecelia's layer. 3-0 Vicryl buried interrupted sutures were placed in the dermis and the skin was closed with a running 4-0 Monocryl subcuticular stitch and dressed with Dermabond. The patient was allowed to wake up in the operating room and was taken to the recovery room in stable condition. There were no immediate complications of this operation. All counts were reported correct at the end of the case. Blood loss was 50 cc. The patient was neurologically at her baseline postoperatively. CPT codes: 41978, 78321 Estimated Blood Loss 50 Complications None Condition Stable Disposition PACU [facility] Billing Surgery - Charge Forward: Surgery Billing
== END 2024-05-18 12:07 | disposition home or self-care (01) ==
PROVIDERS: PCP Physician Assistant; Visit Provider Neurological Surgery
PROC: (CPT 63005; principal; 2024-05-18 07:30)
DX: M51.26 Other intervertebral disc displacement, lumbar region (principal); I10 Essential (primary) hypertension; E11.9 Type 2 diabetes mellitus without complications; J44.9 Chronic obstructive pulmonary disease, unspecified; F41.9 Anxiety disorder, unspecified; F17.210 Nicotine dependence, cigarettes, uncomplicated; E66.9 Obesity, unspecified; Z68.33 Body mass index [BMI] 33.0-33.9, adult; Z79.51 Long term (current) use of inhaled steroids; Z79.891 Long term (current) use of opiate analgesic; Z98.890 Other specified postprocedural states; Z90.49 Acquired absence of other specified parts of digestive tract; Z98.1 Arthrodesis status; Z80.9 Family history of malignant neoplasm, unspecified; Z82.49 Family history of ischemic heart disease and other diseases of the circulatory system
CPT/HCPCS: 63030; 99199; A9270; J0690; J1100; J2003; J2004; J2250; J2270; J2405; J2704; J3010; J7120

== ENCOUNTER 2024-07-16 17:28 | Emergency (ER) | payer BC, SELFPAY ==
--- NOTE | ~2024-07-16 | XR_ITS ---
XR hip RT 2V w AP pelvis Ordering provider: Rehana Kessler APRN History: . fall 2 weeks ago on to hip, lat pain . Comparison: None. FINDINGS: BONES: No acute fracture or dislocation. Well-corticated bone fragment is seen near to the lesser trochanter most likely due to old fracture. HIP JOINT SPACES: Bilateral hip mild osteoarthritic changes. SACROILIAC JOINT SPACES/LUMBAR SPINE: The sacroiliac joint spaces shows bilateral sacroiliacs.. Mild degenerative changes of the visualized lower lumbar spine. PUBIC SYMPHYSIS: Pubic symphysitis. SOFT TISSUES: Normal. IMPRESSION: No acute osseous abnormality pelvis and right hip. Reviewed, dictated and finalized at location A.
--- OUTSIDE RECORDS SUMMARY | 2024-07-16 17:31 | XMS_ITS | Clinical Summary ---
Author Organization [facility] Address [address] [place] [address] Care Team Providers Care Adjunct Professor Of Law Name Role Phone Kevin Faustin Primary Care Provider [phone] Rafat Riley MD Unavailable [phone] Allergies Active Allergy Reactions Criticality Noted Date [...] facet arthropathy 05/16/2022 Diabetes mellitus 06/30/2018 Immunizations Immunization Administration Dates Next Due Influenza, Trivalent, IM [...] How often do you attend chur or temple services? Never 08/22/2022 Do you belong to any clubs o r organizations such as orthodoxy groups, unions, fraternal or athletic groups, or [...] staff should administer the PHQ-9) 0 08/22/2022 [facility] Occupational Stress Questionnaire Answer Date [...] place to sleep or slept in a residential (including now)? No 08/22/2022 Personal Safety Answer Date Recorded Have you ever been in or are you currently in a harmful physical or emotional relationship or is someone making you feel afraid or unsafe? Denies 02/05/2024 Comments No Sex and Gender Information Value Date Recorded Sex Assigned at Not on file Legal Sex Female 10:39 AM SHRIMP PEELER Gender Identity Not on file Sexual Orientation Not on file Obstetrics History Last Filed Vital Signs Vital Sign Reading Time Taken Comments Blood Pressure 158/54 03/08/2024 9:43 AM SHRIMP PEELER Pulse 60 03/08/2024 9:43 AM SHRIMP PEELER Temperature 36.6 C (97.8 F) 02/05/2024 9:19 AM CDT Respiratory Rate 18 02/05/2024 9:19 AM CDT Oxygen Saturation 99% 03/08/2024 9:43 AM SHRIMP PEELER Inhaled Oxygen Concentration - - Weight 81.8 kg (180 lb 6.4 oz) 03/08/2024 9:43 A M SHRIMP PEELER Height 154.9 cm (5' 1 ) 03/08/2024 9:43 AM SHRIMP PEELER Body Mass Index 34.09 03/08/2024 9:43 AM SHRIMP PEELER Plan of Treatment Health Maintenance Due Date Last Done Comments Albumin Creatinine Ratio, Urine 1965 Breast Cancer Screening-Mammogram 1965 Hepatitis C Screening 1965 Dilated Eye Exam 1966 Foot Exam 1966 DTaP/Tdap/Td Vaccine (1 - Tdap) 1977 Hepatitis B Screening 1984 Regular Well Visit/Exam 18-64 1984 Pneumococcal vaccine <65 (1 of 2 - PCV) 1985 Lung Cancer Screening 2016 Zoster Vaccine (1 of 2) 2016 Lipid Panel 01/20/2021 01/21/2020, 07/03/2017 Hemoglobin A1C 03/17/2021 09/15/2020, 032 06/2020, 09/12/2017 Colon Cancer Screening-Colonoscopy 06/15/2022 06/15/2012 Depression Screening 08/22/2023 08/21/2022, 08/22/19 23 eGFR 09/08/2024 09/09/2023, 08/0 09/2022, 08/22/2022, Additional history exists Influenza Vaccine (Season Ended) 2024 01/15/2022, 01/30/2021, 01/20/2013, Additional history exists Colon Cancer Screening-CT Colonography Discontinued 06/15/2012 Colon Cancer Screening-DNA Stool Discontinued 06/16/19 13 Colon Cancer Screening-FIT Discontinued 06/15/2012 Colon Cancer Screening-Sigmoidoscopy Discontinued 06/15/2012 Covid-19 Vaccine Discontinued 06/13/2020 Procedures Procedure Name Priority Date/Time Associated Diagnosis Comments EGFR STAT 09/09/2023 9:13 AM CDT HEMOGLOBIN A1C Add-On 09/15/2020 10:16 AM CDT LIPID PANEL Routine 01/21/2020 10:49 AM CDT COLONOSCOPY 06/15/2012 12:00 AM CDT from Last 3 Months or Most Recently Relevant to Health Maintenance Results * eGFR (09/09/2023 9:13 AM CDT) eGFR [...] MD LAB BLOOD ORDERABLE S Final Result [facility] [place]) 1 [facility] Department of Laboratories [place], [place] [id number] * (ABNORMAL) Hemoglobin A1c (09/15/2020 10:16 AM [...] and children were not included. (Diabetes Care 31:3716-2931, 2008). The eAG is not equivalent to a fasting glucose. Blood specimen (specimen) 09/15/2020 10:16 AM CDT 09/15/2020 10:58 AM CDT us Dot Good MD LAB BLOOD ORDERABLES Final Result [facility] ([place]) [address] [facility] Department [place] [address] * (ABNORMAL) Lipid panel (01/21/2020 10:49 AM [...] Pediatrics 2011;128:S213 2. NCEP Expert Panel. Circulation 2003;110:227 Current Interpretive Data was last revised on [...] on 2017. Chol/HDL ratio 4 [facility] ([place]) Blood specimen (specimen) 01/21/2020 10:49 AM CDT 01/21/2020 10:58 AM CDT us Kevin CAMPOS LAB BLOOD ORDERABLES Final Re sult [facility] ([place]) [address] [facility] Department [place] [address] * COLONOSCOPY (06/15/2012 12:00 AM CDT) Anatomical Region Laterality Modality Other Narrative 06/15/2012 12:00 AM CDT Ordered by an unspecified provider. Procedure Note Provider, MD Dalila - 06/15/2012 12:00 AM CDT PROCEDURE REPORT Patient: BETHANY PIEDRA Account: [id number] Room No: : 1965 Patient Type: [facility] Attend.: Amrik Patel M.D. Admit Date: 06/15/2012 Dict.: Amrik Patel M.D. Disch. Date: 06/15/2012 NAME OF PROCEDURE: Colonoscopy HISTORY A 47-year-old female with a history of severe sudden onset of constipationand change in bowel function. PHYSICAL EXAMINATION Obese female. Lungs are clear. Cardiovascular examination wasunremarkable. PROCEDURE Colonoscopy was performed with the [employer] video endoscope. The patientwas premedicated by anesthesia. [...] Relevant to Health Maintenance [facility] Advance Directives For more information, please contact: [phone] * Full Code (Latest Code Status on File) Date Activated Date Inactivated Comments 08/21/2022 12:56 PM 08/22/2022 5:43 PM Care Teams Adjunct Professor Of Law Relationship Specialty Start Date End Date Kevin Faustin PA [address] [place] [address] PCP - General 07/25/16 Rafat Riley MD [address] [facility] [address] [place] [address] Consulting Physician Neurosurgery 03/08/24
--- OUTSIDE RECORDS SUMMARY | 2024-07-16 17:31 | XMS_ITS | Referral Summary ---
Author Organization [facility] Address [address] [place] [address] Care Team Providers Care Electronic Device Repairer Name Role Phone Kevin Faustin Primary Care Provider [phone] Rafat Riley MD Unavailable [phone] Allergies Active Allergy Reactions Criticality Noted Date [...] How often do you attend chur or nondenominational services? Never 08/22/2022 Do you belong to any clubs o r organizations such as anabaptist groups, unions, fraternal or athletic groups, or [...] staff should administer the PHQ-9) 0 08/22/2022 [facility] - Occupational Stress [...] place to sleep or slept in a penitentiary (including now)? No 08/22/2022 Personal Safety Answer Date Recorded Have you ever been in or are you currently in a harmful physical or emotional relationship or is someone making you feel afraid or unsafe? Denies 02/05/2024 Comments No Sex and Gender Information Value Date Recorded Sex Assigned at Not on file Legal Sex Female 10:39 AM STOCK WORKER AND DELIVERER Gender Identity Not on file Sexual Orientation Not on file Last Filed Vital Signs Vital Sign Reading Time Taken Comments Blood Pressure 158/54 03/08/2024 9:43 AM STOCK WORKER AND DELIVERER Pulse 60 03/08/2024 9:43 AM STOCK WORKER AND DELIVERER Temperature 36.6 C (97.8 F) 02/05/2024 9:19 AM CDT Respiratory Rate 18 02/05/2024 9:19 AM CDT Oxygen Saturation 99% 03/08/2024 9:43 AM STOCK WORKER AND DELIVERER Inhaled Oxygen Concentration - - Weight 81.8 kg (180 lb 6.4 oz) 03/08/2024 9:43 A M STOCK WORKER AND DELIVERER Height 154.9 cm (5' 1 ) 03/08/2024 9:43 AM STOCK WORKER AND DELIVERER Body Mass Index 34.09 03/08/2024 9:43 AM STOCK WORKER AND DELIVERER Plan of Treatment Not on file Procedures [...] LAB BLOOD ORDERABLE S Final Result [facility] ([place]) 1 [facility] Department [place] [address] * (ABNORMAL) Hemoglobin A1c (09/15/2020 10:16 AM [...] and children were not included. (Diabetes Care 31:7895-9255, 2008). The eAG is not equivalent to a fasting glucose. Blood specimen (specimen) 09/15/2020 10:16 AM CDT 09/15/2020 10:58 AM CDT us Dot Good MD LAB BLOOD ORDERABLES Final Result [facility] ([place]) 1 [facility] Department [place] [address] * (ABNORMAL) Lipid panel (01/21/2020 10:49 AM [...] BLOOD ORDERABLES Final Re sult [facility] ([place]) 1 [facility] Department [place] [address] * COLONOSCOPY (06/15/2012 12:00 AM CDT) Anatomical Region Laterality Modality Other Narrative 06/15/2012 12:00 AM CDT Ordered by an unspecified provider. Procedure Note ProviderDalila MD - 06/15/2012 12:00 AM CDT PROCEDURE REPORT Patient: BETHANY PIEDRA Account: [id number] Room No: : 1965 Patient Type: SDS Attend.: Amrik Patel M.D. Admit Date: 06/15/2012 Dict.: Amrik Patel M.D. Disch. Date: 06/15/2012 NAME OF PROCEDURE: Colonoscopy HISTORY A 47-year-old female with a history of severe sudden onset of constipationand change in bowel function. PHYSICAL EXAMINATION Obese female. Lungs are clear. Cardiovascular examination wasunremarkable. PROCEDURE Colonoscopy was performed with the [employer] video endoscope. The patientwas premedicated by anesthesia. [...] Most Recently Relevant to Health Maintenance [facility] Advance Directives For more information, please contact: [phone] * Full Code (Latest Code Status on File) Date Activated Date Inactivated Comments 08/21/2022 12:56 PM 08/22/2022 5:43 PM Care Teams Electronic Device Repairer Relationship Specialty Start Date End Date Kevin Faustin PA [address] [place] [address] PCP - General 07/25/16 Rafat Riley MD [address] [address] Consulting Physician Neurosurgery 03/08/24
--- OUTSIDE RECORDS SUMMARY | 2024-07-16 17:32 | XMS_ITS | Continuity of Care Document ---
Author Organization [facility] Address [address] [place] [address] Phone Care Team Providers Care Library Aide Name Role Phone Hector Bowles MD Unavailable Unavailable Procedures Procedure Date Work/medical disability examination BRANNON Work/medical disability examination BRANNON Advance Directives Directive Yes / No Effective Date File Name No Information Encounters Encounter Description Practice Location Reason(s) For Visit Diagnoses Date Provider Providers Copied on Encounter Work/medical disability examination BRANNON [facility], [address], [place], [place], [id number], [place] tel:[phone] [facility] No Information 9 Jelena Young. [address], [facility] [address], [place], [place], [id number] , [place]. tel: [phone] Family History Family Member Type Diagnosis Age [...]
--- OUTSIDE RECORDS SUMMARY | 2024-07-16 17:32 | XMS_ITS | Patient Health Record ---
Author Organization [facility] Address [address] [place] [address] Care Team Providers Care Floor Worker Transfer Bay Name Role Phone Amparo Mathew Unavailable [phone] Allergies No Known Allergies Reason For Referral No Information Medications Medication SIG (Take, Route, Frequency, Duration) Notes Start Date End Date Status Meloxicam 15 MG take 1 tablet (15 mg) by oral route once daily for 30 days Oral 1 for 30 11/17/2017 Active Lisinopril 20 MG Oral Act angeles Diclofenac Sodium oral *Pick strength-form from [employer] for eRX* Active tiZANidine HCl 4 MG [...] Insured Coverage Start Date Coverage End Date [place] [address] [place] [address] [id number] Bethany Malhotra Self - patient is the insured [place] [address] [place] [address] [id number] Bethany Malhotra Self - patient is the insured DO NOT USE [id number] Bethany Malhotra Self - patient is the insured Medical (General) History Surgical History Surgery Date(Month/Year) C section; 2017-11-08 Hysterectomy; 2017-11-08 Appendectomy; 2017-11-08
--- OUTSIDE RECORDS SUMMARY | 2024-07-16 17:32 | XMS_ITS ---
Author Organization [facility] Address [address] [place] [address] Care Team Providers Care Granulator Tender Name Role Phone Amparo Mathew Unavailable [phone] zzzzMigration, zzzzProvider Unavailable Unav ailable REASON FOR VISIT EMR-Catracho Encounters Encounter Location Date Provider Diagnosis [facility] [address] [place] [address] 01/25/2023 zzzzProvider zzzzMigration Plan Of Treatment No Information Progress Notes * Bethany MALHOTRADOB: 7 (59 yo F)Acc No.[id number]:01/25/2023 Patient: Bethany DAIGLE :1965 A ge:57 Y S ex:Female Address:[address] [place] [address] Subjective: * Chief Complaints: * E MR-Catracho * Medical History: * Surgical History: * Hospitalization/Major Diagno stic Procedure: * Medications: Objective: * Vitals: * Physical Examination: Assessment: Plan: * Treatment: * Procedure Codes: * true * Date: Generated for Printi ng/Fanirmalg/eTransmitting on: 0 07/16/2024 05:31 PM CDT
--- OUTSIDE RECORDS SUMMARY | 2024-07-16 17:32 | XMS_ITS | Clinical Summary ---
Author Organization [facility] Address [address] [place] [address] Phone Care Team Providers Care Machinist General Name Role Phone Kevin Faustin Primary Care Provider [phone] Allergies No known active allergies Medications HYDROcodone-matteo [...] of 3 - 19+ 3-dose series) 1985 Colonoscopy 2011 Colorectal Cancer Screening 2011 Cologuard 2016 Immunochemical Fecal Occult Blood 2016 Pneumococcal Immunization (5 0+ years) (1 of 1 - PCV) 2016 Zoster Immunization (1 of 2) 2016 Influenza Immunization (#1) 12/07/202301/05, 01/06/2012 SARS-COV-2 Immunization ( - season) 2023 02/15/2021, 07/26/2020, 06/07/2020 Respiratory Syncytial Virus (RSV) Immunization (Adult) (1 - 1-dose 75+ series) 2041 Meningococcal Immunization (ACWY) Aged Out No longer eligible b ased on patient's age to complete this topic Rotavirus Immunization Aged Out No lo nger eligible based on patient's age to complete this topic Insurance [employer] Care Teams Machinist General Relationship Specialty Start Date End Date Kevin Faustin [address] [place] [address] PCP - General Physician Director Of Casework Services 09/21/18
--- OUTSIDE RECORDS SUMMARY | 2024-07-16 17:33 | XMS_ITS ---
Author Organization [facility] Address [address], [place] [address] Care Team Providers Care Fractionating Still Operator Name Role Phone Amparo Mathew Unavailable [phone] zzzzMigration, zzzzProvider Unavailable Unav ailable Allergies No Known Allergies REASON FOR VISIT [facility] [place] Medications Medication SIG (Take, Route, Frequency, Duration) Notes Start Date End Date Status Meloxicam 15 MG take 1 tablet (15 mg) by oral route once daily for 30 days Oral 1 for 30 11/17/2017 Active Lisinopril 20 MG Oral Act angeles Diclofenac Sodium oral *Pick strength-form from [employer] for eRX* Active tiZANidine HCl 4 MG take 1 tablet (4 mg) by oral route every 8 hours as needed not to exceed 3 doses in 24 hours for 30 days Oral 3 for 30 Active Encounters Encounter Location Date Provider Diagnosis [facility] [address], [place] [address] 01/26/2023 zzzzProvider zzzzMigration Plan Of Treatment No Information Progress Notes * Bethany PIEDRADOB: 7 (59 yo F)Acc No.[id number]:01/26/2023 Patient: Bethany DAIGLE :1965 A ge:57 Y S ex:Female Address:[address] [place] [address] Subjective: * Chief Complaints: * E MR-Catracho * Medical History: * Surgical History: H ysterectomy; 2017-11-08C section; [id number]; 2017-11-08 * Hospitalization/Major Diagno stic Procedure: * [...] , Notes to Pharmacist: *Pick strength-form from [employer] for eRX*tiZANidine HCl 4 MG Tablet take [...] , Notes to Pharmacist: *Pick strength-form from [employer] for eRX*Taking tiZANidine HCl 4 MG Tablet take 1 tablet (4 mg) by oral route every 8 hours as needed not to exceed 3 doses in 24 hours for 30 days Oral 3 * Allergies: N .K.D.A.no[Allergies Verified] Objective: * Vitals: * Physical Examination: Assessment: Plan: * Treatment: * Procedure Codes: * true * Date: Generated for La Florian/Pratima on: 0 07/16/2024 05:32 PM CDT
--- OUTSIDE RECORDS SUMMARY | 2024-07-16 17:33 | XMS_ITS | Data Portability ---
[facility] Organization 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 Plan of Treatment Reminders Order Date Submit Date Provider Last Modified By Organization Details Last Modified Time Details Appointments None recorded . Lab influenz a virus A + B + SARS-CoV -2 (COVID19 ) Ag panel, rapid IA, upper respirat ory specimen 2024 025 TYRELL In-Office Order, Internal Use Only DO Not Attach Compendium DO Not Attach Compendium, Do Not Delete/merge, [id number] 17:20:56 drug screen, urine 2024 025 TYRELL In-Office Order, Internal Use Only DO Not Attach Compendium DO Not Attach Compendium, Do Not Delete/merge, [id number] 17:24:12 HbA1c (hemoglo bin A1c), blood 2023 024 [facility] In-Office Order, Internal Use Only DO Not Attach Compendium DO Not Attach Compendium, Do Not Delete/merge, [id number] 4 10:12:33 Referral pain manageme nt referral 2023 024 [facility], [address], [place], [address], 5 17:43:53 pain manageme nt referral 2023 024 bo Moran MD, [address], [place], [address], 5 11:22:03 Procedures None recorded . Surgeries None recorded . Imaging None recorded . Medication Orders atorvast atin 10 mg tablet 2024 025 [facility] [place], [facility] [address], [place], [address], 5 17:08:40 buspiron e 15 mg tablet 2023 024 [facility], [facility] [address], [place], [address], 4 11:21:15 Patient TargetsNo targets recorded. Patient Instructions Encounter Date Encounter Id Patient Instructions Last Modified By Organization Details Last Modified Time 02/25/2024 [id number] learning about high blood sugar jnanney Not available 02/25/2024 10:12:33 A healthy lifestyle: care instructions jnanney Not available 02/25/2024 10:28:58 04/15/2024 [id number] A healthy lifestyle: care instructions jnanney Not available 04/15/2024 16:08:58 Reason for Referral Pain Management Referral for Lumbar radiculopathy Referring Physician: [facility], Encounter Date: 03/09/2024 Pain Management Referral for Lumbar radiculopathy Referring Physician: Andrew Faustin [facility], Encounter Date: 04/01/2024 Results Created Date Observation Date Name Description Value Unit Range Abnormal Flag Note LastModifiedBy Organization Detail LastModifiedTime 02/25/20 24 02/25/2024 HbA1c (hemo globi n A1c), blood HbA1c 6.2 Not Available In-Office Order Internal Use Only DO Not Attach Compendium DO Not Attach Compendium, Do Not Delete/merge, [id number] 02/24/2024 16:49:46 05/04/19 25 05/04/2024 drug scree [...] DO Not Attach Compendium, Do Not Delete/merge, [id number] 05/04/2024 17:11:14 05/04/19 25 05/04/2024 influ la virus A + B + SARS- CoV-2 (COVI D19) Ag panel , rapid IA, upper respi rator y speci men Rapid SARS CoV 2 Ag, QL IA, respiratory specimen negati ve Not Available In-Office Order Internal Use Only DO Not Attach Compendium DO Not Attach Compendium, Do Not Delete/merge, [id number] 05/04/2024 17:11:14 02/09/20 24 02/05/2024 imagi ng/di agnos tic resul t No observ ation record ed. [address] , [place], [address], 02/09/2024 17:12:41 02/11/20 24 02/11/2024 MRI, lumba r spine , w/o contr ast No observ ation record ed. [facility] [address], [place], [address], 02/12/2024 10:50:30 03/09/20 24 03/08/2024 XR, lumba r spine No observ ation record ed. [facility] [address] [place] [address] Dr, [place], [address], 03/09/2024 13:03:37 05/18/19 25 05/18/2024 XR, lumba r spine No observ ation record ed. [place] [address], [place], [address], 05/18/2024 11:21:46 Result Notes None recorded. Problems Name Problem SNOMED Code Status Onset Date Resolution Date Notes Provider Name and Address Organization Details Recorded Time Diabetes mellitus 49435934 Active 019 Andree Arteaga MA null, [place] - [facility] 0 10:06:25 Problem Notes None recorded. Procedures Surgical History Date Name Laterality Status Provider Name and Address Organization Details Recorded Time 04/07/19 16 colonoscopy completed Kirsten Ortega MA [facility] 06/22/2019 11:36:51 08/06/19 04 Total hysterectomy completed Kirsten Ortega MA [facility] 06/22/2019 11:31:54 Appendectomy completed Amanda Ruiz MA [facility] 05/29/2016 12:03:23 Gastrointestinal Surgery completed Amanda Ruiz MA [facility] 05/29/2016 12:03:30 Caesarean Section completed Amanda Ruiz MA [facility] 05/29/2016 12:03:47 Imaging Results Imaging Date Name Status LastModified by Organiz ation Details LastModified Time 02/05/2024 imaging/diagn ostic result completed [address] [place], [address], 02/09/2024 17:12:41 02/11/2024 MRI, lumbar spine, w/o contrast completed [facility] [address], [place], [address], 02/12/2024 10:50:30 03/08/2024 XR, lumbar spine completed [facility] [address] [facility] , [place], [address], 03/09/2024 13:03:37 05/18/2024 XR, lumbar spine completed [facility] [address], [place], [address], 05/18/2024 11:21:46 Procedure Notes None recorded. Medical Equipment None Reported. Allergies Allergen ID Allergen Name Allergen Category Reaction Reaction Severity Criticality Documentation Date Start Date Code Code System Note Provider Name and Address Organization Details Recorded Time 732849 Levaquin medicatio n other Not available Not available 06/30/2020 92514 2 RxNorm Not Available Not Available Not Available 919348 Tylenol with Codeine medicatio n abdominal pain Not available Not available 02/16/2024 38763 6 RxNorm Not Available Not Available Not [...] BY MOUTH THREE TIMES a DAY NEEDED 2024 active Not Available Not Available Not Avai lable hydrocodone 5 mg-acetamin ophen 325 mg tablet [...] hours by oral route for 10 days. 2024 active Not Available Not Available Not Avai lable hydrocodone 10 mg-acetamin ophen 325 mg tablet 02/11 completed Not Available Not Available Not Available tramadol 50 mg tablet TAKE TWO TABLET BY MOUTH THREE TIMES a DAY NEEDED 2024 active Not Available Not Available Not Avai lable ondansetron 8 mg disintegrat ing tablet TAKE [...] (3) TIMES a DAY BY MOUTH NEEDED needs appt before next refill 2024 active Not Available Not Available Not [...] Not Available escitalopra m 10 mg tablet TAKE ONE (1) TABLET BY MOUTH EVERY DAY 2024 active Not Available Not Available Not Avai lable Zetia 10 mg tablet Take 1 tablet [...] Not Available Vitals Date Recorded Body height Body mass index (BMI) Body weight Oxygen saturation Oxygen saturation in Arterial blood by Pulse oximetry Heart rate Systolic blood pressure Diastolic blood pressure Provider Name and Address Organization Details Last Updated DateTime 4 162.56 cm 30.4 kg/m2 67308.8 5 g 96 % 96 % 52 /min 152 mm[Hg] 76 mm[Hg] Emiliana Mendez MA [place] - [facility] 4 10:01:00 Date Recorded Body height Body mass index (BMI) Body weight Oxygen saturation Oxygen saturation in Arterial blood by Pulse oximetry Heart rate Systolic blood pressure Diastolic blood pressure Provider Name and Address Organization Details Last Updated DateTime 4 162.56 cm 31.8 kg/m2 42569.5 9 g 97 % 97 % 66 /min 137 mm[Hg] 78 mm[Hg] Emiliana Mendez MA MA - [facility] 4 11:04:43 Date Recorded Body height Body mass index (BMI) Body weight Oxygen saturation Oxygen saturation in Arterial blood by Pulse oximetry Heart rate Systolic blood pressure Diastolic blood pressure Provider Name and Address Organization Details Last Updated DateTime 4 162.56 cm 31.3 kg/m2 62821.2 6 g 98 % 98 % 71 /min 123 mm[Hg] 71 mm[Hg] Emiliana Mendez MA [facility] 4 10:36:26 Date Recorded Body height Body mass index (BMI) Body weight Oxygen saturation Oxygen saturation in Arterial blood by Pulse oximetry Heart rate Systolic blood pressure Diastolic blood pressure Provider Name and Address Organization Details Last Updated DateTime 5 162.56 cm 29.2 kg/m2 90253.7 g 96 % 96 % 81 /min 174 mm[Hg] 72 mm[Hg] Emiliana Mendez MA [facility] 5 15:45:13 Date Recorded Body height Body mass index (BMI) Body weight Oxygen saturation Oxygen saturation in Arterial blood by Pulse oximetry Heart rate Respiratory rate Body temperature Systolic blood pressure Diastolic blood pressure Provider Name and Address Organization Details Last Updated DateTime 5 162.56 cm 29.2 kg/m2 01473.1 4 g 97 % 97 % 65 /min 16 /min 98.5 [degF] 132 mm[Hg] 86 mm[Hg] Maddie Ayala MA [facility] 5 16:58:03 Social History Question Answer Notes LastModified by Organizat ion Details LastModified Time Tobacco Smoking Status Current Every Day Smoker Amanda Ruiz MA [facility], [place] - [facility] 05/29/2016 12:06:11 Do You Have An Advance [...] available 06/22/2019 If Patient Spent Time In [facility] - Does The Patient Live In [facility]? No Information not available 06/22/2019 In The 14 Days Before Symptom Onset, Have You Had Close Contact With A Person Who Is Under Investigation For COVID-19 While That Person Was Ill? No Information not available 06/22/2019 In The 14 Days Before Symptom Onset, Did The Patient Spend Time In [facility]? 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 10-19packyear s [email or web address] Information not available 03/20/2021 What Is [...] Anxious, Or Unable To Sleep At Night)? [id number] Information not available 08/08/2021 Do You Use [...] Response Coronary Artery Disease N Other N High Blood Pressure Y Atrial Fibrillation N Kidney or Bladder Problems N Thyroid Problems N Blood Clots N COPD N Depression N GI Problems N Skin Problems N Eating Disorder N Anemia N Heart Attack (NC) N [...] mcg/0.3 mL dose 1 completed Not Available [facility] 05/12/2023 19:02:25 COVID-19, mRNA, LNP-S, PF, 30 mcg/0.3 mL dose 1 completed Not Available [facility] 05/12/2023 19:02:25 COVID-19, mRNA, LNP-S, PF, 30 mcg/0.3 mL dose 1 completed Not Available [facility] 05/12/2023 19:02:26 Influenza, split virus, quadrivalent, PF 2 completed Not Available [facility] 05/12/2023 19:02:26 Influenza, split virus, quadrivalent, PF 1 completed Not Available [facility] 05/12/2023 19:02:26 COVID-19, mRNA, LNP-S, bivalent, PF, 30 mcg/0.3 mL dose 2 completed Not Available [facility] 05/12/2023 19:02:26 influenza, unspecified formulation 3 completed Not Available [facility] 05/12/2023 19:02:26 COVID-19, mRNA, LNP-S, PF, 30 mcg/0.3 mL dose 1 completed Not Available [facility] 05/12/2023 19:02:25 Influenza, split virus, trivalent, preservative 2 completed Not Available [facility] 10/17/2022 13:04:07 Past Encounters Encounter ID Performer Location Encounter Start Date Encounter Closed Date Diagnosis/Indication Diagnosis SNOMED-CT Code Diagnosis ICD10 Code Diagnosis Note [id number] Andrew Faustin PA-C [facility] [address] [place] [address] 05/29/2016 11:46:49 05/29/2016 13:16:41 Essential hypertension 57025169 I10 Acute maxi llary sinusitis 55130250 J01.01 [id number] Andrew Faustin PA-C [facility] [address] [place] [address] 06/05/2016 10:40:53 06/05/2016 12:16:38 Chronic maxillary sinusitis 01552743 J32.0 [id number] Andrew Faustin PA-C [facility] [address] [place] [address] 06/26/2016 11:12:27 06/26/2016 12:22:35 Drug-induced constipation 94469678 K59.03 [id number] Carol Ferraro MA [facility] [address] [place] [address] 07/03/2017 14:52:41 07/03/2017 17:11:26 Pain in right hip joint 7023248316 04951 M25.551 Low back pain 974893163 M54.5 Acute bronchitis 8926516 2 J20.9 Essential hypertension 62495465 I10 [id number] Andrew Faustin PA-C [facility] [address] [place] [address] 07/08/2017 14:51:46 07/08/2017 16:59:51 Chronic low back pain 184808223 M54.5 Essential hypertension 23117518 I10 Type 2 juan miguel betes mellitus without complication 035781171 E11.9 [id number] TAHIR Ernandez [facility] [address] [place] [address] 08/25/2017 11:33:42 08/25/2017 12:30:17 Carbuncle of skin and/or subcutaneous tissue 08907591 L02.93 Hyperglycemia 77683450 R 73.9 [id number] TAHIR Ernandez [facility] [address] [place] [address] 09/23/2017 17:50:16 09/23/2017 18:25:22 Diabetes mellitus 31390934 E11.9 Pain in left knee 036043 6711 53754 M25.562 Rheumatoid arthritis 698 95464 M06.9 [id number] Andrew Faustin PA-C [facility] [address] [place] [address] 02/10/2018 15:01:43 02/10/2018 16:07:06 Generalized anxiety disorder 21103207 F41.1 Diabetes mellitus 554976 09 E11.9 Rheumatoid arthritis 698 11393 M06.9 [id number] TAHIR Ernandez [facility] [address] [place] [address] 02/23/2018 15:39:35 02/23/2018 16:20:01 Diabetes mellitus 31932370 E11.9 Hyperlipidemia 67242805 E78.01 Lumbar radiculopathy 128 216930 M54.16 [id number] Andrew Faustin PA-C [facility] [address] [place] [address] 05/08/2018 10:54:35 05/08/2018 11:54:12 Cellulitis of face 904250761 L03.494 [id number] Andrew Faustin PA-C [facility] [address] [place] [address] 05/12/2018 10:42:13 05/12/2018 11:50:54 Acute sinusitis 92506336 J01.01 [id number] Andrew Faustin PA-C [facility] [address] [place] [address] 05/19/2018 10:28:42 05/19/2018 11:40:55 Type 2 diabetes mellitus 74721261 E11.9 [id number] TAHIR Ernandez [facility] [address] [place] [address] 06/30/2018 10:49:32 06/30/2018 12:05:05 Acute bronchitis 75466198 J20.8 Osteoarthritis 552440590 M19.90 Type 2 juan miguel betes mellitus 77449676 E11.9 Generalize d anxiety disorder 40751456 F41.1 [id number] TAHIR Ernandez [facility] [address] [place] [address] 09/29/2018 11:39:16 09/29/2018 12:43:53 Rib pain 415710601 R07.81 [id number] Andrew Faustin PA-C [facility] [address] [place] [address] 06/22/2019 10:57:31 06/22/2019 12:35:00 Diabetes mellitus 73927799 E11.9 Essential hypertension 85126013 I10 Bilateral knee pain 1187 854184 2412266 M25.561 Generalize d anxiety disorder 15156905 F41.1 [id number] Andrew Faustin PA-C [facility] [address] [place] [address] 06/25/2019 09:58:41 06/28/2019 08:32:47 Type 2 diabetes mellitus 47341654 E11.9 [id number] Andrew Faustin PA-C [facility] [address] [place] [address] 12/01/2019 09:32:30 12/06/2019 08:56:01 Diabetes mellitus 84530306 E11.9 Rheumatoid arthritis 698 24568 M06.89 [id number] Andrew Faustin PA-C [facility] [address] [place] [address] 01/07/2020 10:46:00 01/13/2020 08:29:11 Worms in stool 343264990 R19.5 Generalize d anxiety disorder 76160409 F41.1 [id number] Andrew Faustin PA-C [facility] [address] [place] [address] 05/16/2020 11:58:30 05/16/2020 19:06:01 Acute sinusitis 67181457 J01.01 [id number] Andrew Faustin PA-C [facility] [address] [place] [address] 06/26/2020 10:23:03 06/27/2020 17:58:54 Acute bronchitis with bronchospasm 75322964 J20.8 Diabetes mellitus 963966 09 E11.9 Infection of tooth 64036 8007 K04.7 [id number] Andrew Faustin PA-C [facility] [address] [place] [address] 06/28/2020 14:03:13 06/28/2020 17:03:45 Acute bronchitis with bronchospasm 55738002 J20.8 Diabetes mellitus 354236 09 E11.9 [id number] Luz Elena Anaya MA [facility] [address] [place] [address] 09/14/2020 17:26:43 09/15/2020 14:01:19 Long-term drug therapy 569032977 Z79.930 [id number] Andrew Faustin PA-C [facility] [address] [place] [address] 09/26/2020 16:52:16 09/27/2020 22:40:36 Diabetes mellitus 25872575 E11.9 Body mass index 30+ - obesity 774717733 Z68.39 Pain in right knee 75974 74467 79062 M25.561 Somatic dy sfunction of right upper extremity 2508164578 3710972 M99.07 Primary fi bromyalgia syndrome 71207817 M79.7 [id number] TAHIR Ernandez [facility] [address] [place] [address] 11/14/2020 16:25:16 11/14/2020 17:52:27 Diabetes mellitus 43988333 E11.9 Pain in right knee 64831 60965 67654 M25.648 [id number] Andrew Faustin PA-C [facility] [address] [place] [address] 03/20/2021 10:49:19 03/20/2021 11:52:23 Diabetes mellitus 39925003 E11.9 Lumbar radiculopathy 128 988919 M54.16 Bilateral osteoarthritis of knees 6259379908 55299 M17.0 [id number] TAHIR Ernandez [facility] [address] [place] [address] 04/05/2021 16:17:30 04/05/2021 17:10:55 Diabetes mellitus 81216361 E11.9 Lumbar radiculopathy 128 478279 M54.16 [id number] TAHIR Ernandez [facility] [address] [place] [address] 08/08/2021 17:52:37 08/08/2021 19:04:57 Acute bronchitis with bronchospasm 47512025 J20.8 Essential hypertension 18977676 I10 Long-term drug therapy 782200603 Z79.492 [id number] Andrew Faustin PA-C [facility] [address] [place] [address] 08/22/2021 14:23:55 08/22/2021 15:05:41 Adult health examination 608975223 Z00.00 Lumbar radiculopathy 128 707902 M54.16 [id number] TAHIR Ernandez [facility] [address] [place] [address] 02/15/2022 15:25:22 02/15/2022 16:24:33 Obesity 201928935 E66.9 Lumbar radiculopathy 128 825651 M54.16 [id number] Andrew Faustin PA-C [facility] [address] [place] [address] 02/21/2022 15:11:50 02/21/2022 15:59:41 Epigastric pain 87985320 R10.13 [id number] Andrew Faustin PA-C [facility] [address] [place] [address] 04/17/2022 16:00:33 04/17/2022 17:15:04 Type 2 diabetes mellitus 32570675 E11.9 Lumbar radiculopathy 128 948186 M54.16 Acute maxi llary sinusitis 30752942 J01.01 Upper resp iratory infection 93414050 J00 [id number] Andrew Faustin PA-C [facility] [address] [place] [address] 06/10/2022 10:33:23 06/18/2022 09:07:46 Lumbar radiculopathy 632040028 M54.16 Overweight 220324862 E66 .3 [id number] Andrew Faustin PA-C [facility] [address] [place] [address] 09/03/2022 17:47:13 09/04/2022 14:39:16 Long-term drug therapy 437781744 Z79.899 History of colitis 37246 9006 Z87.19 Right uppe r quadrant pain 884970065 R10.11 Rheumatoid arthritis 698 14844 M06.89 [id number] Andrew Faustin PA-C [facility] [address] [place] [address] 11/19/2022 15:28:26 11/20/2022 11:57:25 Lumbar radiculopathy 614909862 M54.16 Tobacco de pendence syndrome 88106821 F17.200 Overweight 050350347 E66 .3 [id number] TAHIR Ernandez [facility] [address] [place] [address] 02/11/2023 13:53:52 02/12/2023 15:11:03 Generalized rash 506225652 R21 Rheumatoid arthritis 698 14632 M06.89 Essential hypertension 68521678 I10 [id number] Andrew Faustin PA-C [facility] [address] [place] [address] 03/28/2023 14:32:01 04/01/2023 12:11:25 Acute maxillary sinusitis 24499239 J01.01 [id number] Andrew Faustin PA-C [facility] [address] [place] [address] 06/06/2023 16:26:49 06/09/2023 16:23:12 Acute pyelonephritis 03006959 N10 Acute low back pain 2788 15470 M54.59 [id number] Andrew Faustin PA-C [facility] [address] [place] [address] 06/13/2023 17:02:24 06/16/2023 17:05:29 Long-term drug therapy 035662663 Z79.899 Dysuria 40626214 R30.0 Recurrent urinary tract infection 409022330 N39.0 [id number] [facility] [address] [place] [address] 09/30/2023 17:48:42 10/02/2023 20:53:33 Irritable bowel syndrome characterized by constipation 445110609 K58.1 Overweight 974927541 E66 .3 [id number] Andrew Faustin PA-C [facility] [address] [place] [address] 10/28/2023 17:19:49 10/30/2023 12:46:57 Overweight 152806733 E66.3 Irritable bowel syndrome 65444778 K58.9 Psoriatic arthritis 1563 11496 L40.50 Spinal william nosis of lumbar region 84252494 M48.062 Generalize d anxiety disorder 23948377 F41.1 Lumbar radiculopathy 128 419787 M54.16 [id number] Andrew Faustin PA-C [facility] [address] [place] [address] 01/15/2024 13:51:31 01/22/2024 10:55:38 Mixed anxiety and depressive disorder 203313489 F41.8 Irritable bowel syndrome with diarrhea 313644604 K58.0 Overweight 730007030 E66 .3 Irritable bowel syndrome characterized by constipation 841712733 K58.1 Essential hypertension 78507120 I10 Lumbar radiculopathy 128 100695 M54.16 [id number] Andrew Faustin PA-C [facility] [address] [place] [address] 02/03/2024 17:59:52 02/05/2024 10:31:04 Lumbar radiculopathy 800097119 M54.16 [id number] Andrew Faustin PA-C [facility] [address] [place] [address] 02/16/2024 16:20:26 02/18/2024 08:44:42 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 064427291 M99.59 Lumbar radiculopathy 128 181006 M54.16 Overweight 593025711 E66 .3 [id number] Andrew Faustin PA-C [facility] [address] [place] [address] 02/25/2024 09:43:26 03/01/2024 11:03:59 Hyperglycemia 32840654 R73.9 Lumbar radiculopathy 128 221224 M54.16 Stenosis o f spinal canal due to intervertebral disc 845469013 M99.59 Overweight 746835216 E66 .3 [id number] Andrew Faustin PA-C [facility] [address] [place] [address] 03/09/2024 10:56:43 03/10/2024 16:10:39 Mixed anxiety and depressive disorder 094295758 F41.8 Lumbar radiculopathy 128 248584 M54.16 [id number] Andrew Faustin PA-C [facility] [address] [place] [address] 04/01/2024 10:28:25 04/05/2024 09:33:58 Backache with radiating pain 771234451 M54.9 Lumbar radiculopathy 128 892291 M54.16 [id number] Andrew Faustin PA-C [facility] [address] [place] [address] 04/15/2024 15:36:55 04/16/2024 12:23:03 Low back pain 490293098 M54.59 Lumbar radiculopathy 128 124633 M54.16 Overweight 078876872 E66 .3 [id number] Andrew Faustin PA-C [facility] [address] [place] [address] 05/04/2024 16:48:30 05/10/2024 11:27:51 Long-term drug therapy 732670168 Z79.899 Acute gastroenteritis 69 763184 K52.82 Lumbar radiculopathy 128 761795 M54.16 Mixed hyperlipidemia 267 755632 E78.2 Health Concerns Section Related Observation LastModified by Organization Detai ls LastModified Time None Recorded Concern Status LastModified by Organization Details LastModified Time None Recorded Advance Directives Directive N: Payers Encounter Date Sequence Insurance Name Policy Number Policy House Covered Member ID House Member ID Guarantor Name 02/25/2024 1 [place] [id number] Bethany Sales [id number] 33 Bethany Sales 03/09/2024 1 [place] [id number] Bethany Sales [id number] 33 Bethany Sales 04/01/2024 1 [place] [id number] Bethany Sales [id number] Bethany Sales 04/15/2024 1 [place] [id number] Bethany Sales [id number] 33 Bethany Sales 05/04/2024 1 [place] [id number] Bethany Sales [id number] 33 Bethany Sales Notes Date Note Type Note Provider Name and Address Organization Details Recorded Time 02/25/2024 text/html going to see neurosurg on 03-08 ... Andrew Faustin PA-C Attn: Accounting, [address] [facility], [place], [place], [address] [place] [address], [facility] 02/25/2024 10:29:44 03/09/2024 text/html was told she nee ds a very detailed surhgery...and told she was not a candidate...has appt with Emma in April for second opinion...needs pain mng... Andrew Faustin PA-C Attn: Accounting, 1 [place], [place], [address] [place] [address], [facility] 03/09/2024 11:25:47 04/01/2024 text/html FMLA paperwork...wants to try a less restrictive pain mng...wants to continue xanax...seeing surgeon on 05/04 Andrew Faustin PA-C Attn: Accounting, 1 [place], [place], [address] [place] [address], [facility] 04/01/2024 10:56:39 04/15/2024 text/html lumbar radiculopathy..... Andrew Faustin PA-C Attn: Accounting,[address] [place], [place], [address] [place] [address], [facility] 04/15/2024 16:09:34 05/04/2024 text/html stomach pains an d fever was having diarrhea and vomiting..was constipated but not now....is improving began 1 week ago....also LDL high will start atorvastatin...als o ear pain Andrew Faustin PA-C Attn: Accounting, 1 [place], [place], [address] [place] [address], [facility] 05/04/2024 17:12:53 OBGyn Episode No OBEpisode recorded.
[2024-07-16 17:34] VITALS: BP 138/67; PULSE 76; RESP 16; TEMP 36.7; O2SAT 98
--- OUTSIDE RECORDS SUMMARY | 2024-07-16 17:35 | XMS_ITS | Continuity of Care Document ---
Author Organization [facility] Address [address] [place] [address] Phone Care Team Providers Care Pill Maker Name Role Phone Hector Bowles MD Unavailable Unavailable Procedures Procedure Date Work/medical disability examination BRANNON Work/medical disability examination BRANNON Advance Directives Directive Yes / No Effective Date File Name No Information Encounters Encounter Description Practice Location Reason(s) For Visit Diagnoses Date Provider Providers Copied on Encounter Work/medical disability examination BRANNON [facility], [address], [place], [place], [id number], [place] tel:[phone] [facility] No Information 9 Jelena Young. [address] [facility] [address], [place], [place], [id number] , [place]. tel: [phone] Family History Family Member Type Diagnosis Age [...]
--- NOTE | 2024-07-16 17:37 | ED.FALL ---
HPI - Fall General Chief Complaint: Fall Stated Complaint: Fall Injury/Hip/Knee/Back Time Seen by Provider: 07/16/24 17:39 Source: patient, RN notes reviewed and old records reviewed Mode of arrival: ambulatory Limitations: no limitations History of Present Illness HPI Narrative: 59-year-old female presents to the [facility] with complaints of a fall 2 weeks ago. Patient reports that she is mostly having some right hip pain, right knee pain and low back pain. Has not tried calling her primary nor neurosurgeon. Has history of back surgery. Patient reports that the right hip has given her the most discomfort. Feels like it is popping out of place at night. Patient is walking with a limp. Patient with concerns could she has had multiple falls. Denies any back pain with palpation. Denies any loss retention about bladder. No saddle anesthesia. Onset (ago): week(s) (2) Related Data Home Medications ?Medication ?Instructions ?Recorded ?Confirmed ?Last Taken ?Type meloxicam 15 mg tablet 15 mg PO DAILY 09/21/20 05/18/24 05/10/24 History tizanidine 4 mg tablet 6 mg PO TID PRN muscle spasticity 09/21/20 05/18/24 05/17/24 History alprazolam 0.5 mg tablet 0.5 mg PO TID PRN anxiety 10/17/22 05/18/24 05/17/24 05:00 History lisinopril 40 mg tablet 40 mg PO DAILY 10/17/22 05/07/24 12/02/22 History pregabalin 150 mg capsule 150 mg PO BID 10/17/22 05/18/24 05/17/24 History albuterol sulfate 90 mcg/actuation 1 inh inhalation Q6-8H PRN 11/28/22 05/18/24 05/18/24 05:00 History aerosol inhaler shortness of breath or wheezing acetaminophen 500 mg tablet 1,000 mg PO Q6H PRN pain 05/07/24 05/18/24 05/17/24 History (Acetaminophen Extra Strength) buspirone 10 mg tablet 10 mg PO BID 05/07/24 05/18/24 05/17/24 History dicyclomine 20 mg tablet 20 mg PO QID 05/07/24 05/18/24 05/18/24 05:00 History escitalopram oxalate 10 mg tablet 10 mg PO QAM 05/07/24 05/18/24 05/17/24 History famotidine 20 mg tablet (Acid 20 mg PO DAILY 05/07/24 05/18/24 05/17/24 History Controller) ondansetron 8 mg disintegrating 8 mg PO Q8-12H PRN nausea and 05/07/24 05/07/24 Unknown History tablet vomiting tramadol 50 mg tablet 100 mg PO Q8H PRN pain 05/07/24 05/18/24 05/17/24 History Allergies Allergy/AdvReac Type Severity Reaction Status Date / Time codeine AdvReac ABD PAIN Verified 06/29/24 16:08 levofloxacin (From Levaquin) AdvReac Nausea, Verified 06/29/24 16:08 DIARRHEA Review of Systems Review of Systems: All systems reviewed & are unremarkable except as noted in HPI and below Constitutional: Constitutional: Reports no additional constitutional complaints ENT: Reports system reviewed and no additional complaints, except as documented Cardiovascular: Cardiovascular: Reports no additional cardiovascular complaints, Denies chest pain and Denies dyspnea Respiratory: Respiratory: Reports no additional respiratory complaints, Denies chest congestion, Denies cough and Denies dyspnea Musculoskeletal: Musculoskeletal: Reports as per HPI Integumentary/Breasts: Skin/Breast: Reports system reviewed and no additional complaints, except as docu PMFSH Past Medical History Medical History Arthritis Anxiety COPD (chronic obstructive pulmonary disease) Diabetes Hypertension Surgical History Surgical History History of hysterectomy History of cholecystectomy History of tonsillectomy Family History Family History Sibling Cancer Heart problem Mother Diabetes mellitus Hypertension Depression Anxiety Father Hypertension Diabetes mellitus Depression Anxiety Heart problem Sibling Hypertension Depression Anxiety Daughter Anxiety Depression Grandparent Cerebrovascular accident Social History Social History Social History: Bethany is very confident in filling out medical forms and has not received assistance in the last 12 months from an organization/program. She has had 3 pregnancies, 1 ended in miscarriage. Date of last menses was 09/15/2013. Performs self breast exams weekly. Had a colonoscopy on 06/16/2019. She drinks 6 cups of coffee/day. Smoking packs per day: 1 Smoking cigarettes per day: 20.0 Years smoked: 45 Smoking pack-years: 45.00 Smoking status: Current every day smoker Tobacco type: cigarettes Additional smoking assessment comments: CUTTING BACK ON CIGARETTES FOR SURGERY, ~ 5 CIG/DAY Alcohol intake: current Alcohol use details: SOCIAL DRINKER IN PAST, NO ALCOHOL NOW Substance use: current Substance use type: marijuana Do You Feel Safe in your Home?: Yes Lack of Transportation: No Lack of Food: Never True Current Housing: I Have Housing Concerned About Future Housing: No Difficulty Paying Gas/Electric Bills: YES Difficulty Paying for Meds: YES Currently Unemployed: No Education: High School Diploma/GED Difficulty w/ Childcare or Family Care: No Living arrangements: alone Occupation/Education: occupation Additional occupation/education comments: [employer] Gender identity (if verbalized by the patient): Female Sexual Orientation (if Verbalized by the Patient): Straight or Heterosexual Spiritual care concerns: No Agree to blood products: Yes Comments At the time of my signature, I reviewed and agree with the nursing past medical, surgical, social, and family history. There is no relevant family history pertinent to the patient complaint. Exam Const: General: cooperative, healthy appearing, comfortable, no acute distress, well developed, alert and well nourished Nutritional Appearance: well nourished Orientation/consciousness: patient oriented x3 Limitations: no limitations HENMT: Head: normal to inspection Eyes: General: appearance normal, both eyes and all related structures Alignment and Position: alignment normal Neck: Neck: normal visual inspection, full ROM, no lymphadenopathy and no meningeal signs Chest: Chest palpation & inspection: normal inspection of the chest Resp: Effort & Inspection: normal respiratory effort and able to speak in complete sentences Cardio: Rate: regular rate Skin: General skin exam: normal color and no rashes or lesions noted Neuro: General: patient oriented x3, moves all extremities and no meningeal signs Cognition (Neuro): normal cognition Speech: normal speech Gait exam (Neuro): Normal gait present Extrem: General: normal to inspection, full ROM, capillary refill normal and Limp noted Right lower extremity: hip/thigh Details: tenderness; no swelling, no abrasions, no lacerations, no ecchymosis, no crepitus, no foreign bodies and no penetrating wound Psych: Appearance: grossly normal and well kempt Mental Status: mental status grossly normal Speech and movement: Normal speech and movement present and Clear speech present Affect: normal affect Attitude: cooperative Course Course Level of Care: Express Care Visit Vital Signs Vital signs: Vital Signs Temperature 98.1 F 07/16/24 17:34 Pulse Rate 76 07/16/24 17:34 Respiratory Rate 16 07/16/24 17:34 Blood Pressure 138/67 07/16/24 17:34 Pulse Oximetry 98 07/16/24 17:34 Oxygen Delivery Room Air 07/16/24 17:34 Temperature 98.1 F 07/16/24 17:34 Pulse Rate 76 07/16/24 17:34 Respiratory Rate 16 07/16/24 17:34 Blood Pressure 138/67 07/16/24 17:34 Pulse Oximetry 98 07/16/24 17:34 Oxygen Delivery Room Air 07/16/24 17:34 Reviewed MDM - Fall MDM Narrative Medical decision making narrative: Patient sitting in exam. Nontoxic, vitals stable patient presents with right hip pain, chronic back pain, multiple falls. Patient's x-ray for the hip is negative for fracture. Discussed with patient that x-rays do not show ligament issues, she needs to follow-up with her orthopedist. States she states she will call on Friday. Patient appropriate for outpatient treatment with close follow-up Discharge instructions reviewed with patient, as well as provided in writing per nursing staff. The instructions also include specific and strict return/GO TO THE ER as well as f/u information. All questions have been answered, and the patient deny any further questions with discharge and discharge plan. Some parts of this dictation were generated by voice recognition software and may contain typographical and/or grammatical inaccuracies. Critical Care Time Critical Care Time Critical Care Time: No Discharge Plan Discharge Clinical Impression: Chronic back pain, Acute pain of right hip Patient Disposition: Home Condition: Stable Instructions: Antibiotic Form, Hip Pain (ED) Additional Instructions: Follow-up with your primary care provider as soon as possible. With your falls it is recommended you to follow-up with your neurosurgeon. Today the x-ray did not show fractures. Take your pain medications as prescribed as needed For new or worsening symptoms please go directly to the emergency room Patient Language: Setswana Prescriptions: No Action meloxicam 15 mg tablet 15 mg PO DAILY tizanidine 4 mg tablet 6 mg PO TID PRN (Reason: muscle spasticity) pregabalin 150 mg capsule 150 mg PO BID Patient Comments: QID Rx Instructions: as prescribed alprazolam 0.5 mg tablet 0.5 mg PO TID PRN (Reason: anxiety) Rx Instructions: as prescribed lisinopril 40 mg tablet 40 mg PO DAILY Patient Comments: QAM methocarbamol 750 mg tablet 750 mg PO QID PRN (Reason: muscle spasm) Qty: 30 0RF albuterol sulfate 90 mcg/actuation HFA aerosol inhaler 1 inh INHALATION Q6-8H PRN (Reason: shortness of breath or wheezing) acetaminophen [Acetaminophen Extra Strength] 500 mg tablet 1,000 mg PO Q6H PRN (Reason: pain) tramadol 50 mg tablet 100 mg PO Q8H PRN (Reason: pain) buspirone 10 mg tablet 10 mg PO BID escitalopram oxalate 10 mg tablet 10 mg PO QAM dicyclomine 20 mg tablet 20 mg PO QID ondansetron 8 mg tablet,disintegrating 8 mg PO Q8-12H PRN (Reason: nausea and vomiting) famotidine [Acid Controller] 20 mg tablet 20 mg PO DAILY hydrocodone-acetaminophen 5-325 mg tablet 1 - 2 tablet PO Q4H PRN (Reason: pain) Qty: 30 0RF Follow-up/Referrals: Roxie,BETH Bowen [Primary Care Provider] - 3 Days ([facility] follow-up) Time of Disposition: 18:45
== END 2024-07-16 18:59 | disposition home or self-care (01) ==
PROVIDERS: Emergency Provider Nurse Practitioner; PCP Physician Assistant
DX: M25.551 Pain in right hip (principal); G89.29 Other chronic pain; M54.50 Low back pain, unspecified; I10 Essential (primary) hypertension; E11.9 Type 2 diabetes mellitus without complications; J44.9 Chronic obstructive pulmonary disease, unspecified; M19.90 Unspecified osteoarthritis, unspecified site; F41.9 Anxiety disorder, unspecified
CPT/HCPCS: 73502; 99213; G0463